=== PATIENT | male | born 1945 | race Caucasian/White ===

== ENCOUNTER → 2022-06-11 | Outpatient (CLI) | payer OTHER ==
[~2022-06-11] MED LIST: CLOT15CR23 TP; HYD25 PO; HYDR28CR51 TP; LIDOCAINE HCL 4% LTA SOL 4 ML VIAL ONE
== END | disposition home or self-care (01) ==
LOC: WHH 08:32
PROVIDERS: ATTEND Family Medicine
DX: I89.0 Lymphedema, not elsewhere classified (principal); L97.811 Non-pressure chronic ulcer of other part of right lower leg limited to breakdown of skin; L97.821 Non-pressure chronic ulcer of other part of left lower leg limited to breakdown of skin; I87.2 Venous insufficiency (chronic) (peripheral); I11.0 Hypertensive heart disease with heart failure; I50.20 Unspecified systolic (congestive) heart failure; E66.9 Obesity, unspecified; M19.90 Unspecified osteoarthritis, unspecified site; F17.290 Nicotine dependence, other tobacco product, uncomplicated; F17.200 Nicotine dependence, unspecified, uncomplicated; Z68.41 Body mass index [BMI] 40.0-44.9, adult; Z79.899 Other long term (current) drug therapy
CPT/HCPCS: G0463; A4450; A6456

== ENCOUNTER 2022-06-17 08:17 | Emergency (ER) | payer OTHER ==
[~2022-06-17] VITALS: Ht 180.3 cm; Wt 145.1 kg
[2022-06-17 09:01] LABS: BASOPHILS % (AUTO) 0.6 % (0.0-5.0); EOSINOPHILS % (AUTO) 7.3 % (0.0-8.0); HEMATOCRIT 37.1 % (42-54); LYMPHOCYTES % (AUTO) 18.4 % (21.0-51.0); MEAN CORPUSCULAR HGB CONC 32.1 g/dL (32.0-36.0); MEAN CORPUSCULAR VOLUME 90.5 fL (79-99); MONOCYTES % (AUTO) 8.9 % (3.0-13.0); NEUTROPHILS % (AUTO) 63.7 % (40.0-77.0); PLATELET COUNT (AUTO) 263 K/uL (130-400); RED CELL DISTRIBUTION WIDTH 15.7 % (11.0-15.5)
[2022-06-17 09:09] LABS: CREATININE 1.5 mg/dL (0.5-1.5); POTASSIUM 3.9 mmol/L (3.5-5.1)
[2022-06-17 09:13] LABS: ALBUMIN 2.5 g/dL (3.5-5.0); TOTAL PROTEIN, SERUM 7.2 g/dL (6.0-8.3)
[2022-06-17] MEDS ORDERED: HYDR28CR51 TP (09:40)
[2022-06-17] MEDS ORDERED: HYD25 PO (09:40)
[2022-06-17] MEDS ORDERED: CLOT15CR23 TP (09:40)
[2022-06-17 09:58] VITALS: BP 110/68
== END 2022-06-17 10:00 | disposition home or self-care (01) ==
LOC: EDH 08:17
DX: B37.2 Candidiasis of skin and nail (principal); L20.9 Atopic dermatitis, unspecified; J44.9 Chronic obstructive pulmonary disease, unspecified; Z88.8 Allergy status to other drugs, medicaments and biological substances; Z88.6 Allergy status to analgesic agent; Z98.890 Other specified postprocedural states
CPT/HCPCS: 36415; 80053; 85025

== ENCOUNTER → 2022-06-18 | Outpatient (CLI) | payer OTHER ==
[~2022-06-18] MED LIST changes: -LIDOCAINE HCL 4% LTA SOL 4 ML VIAL ONE
== END | disposition home or self-care (01) ==
LOC: WHH 10:14
PROVIDERS: ATTEND Family Medicine
DX: I89.0 Lymphedema, not elsewhere classified (principal); L97.812 Non-pressure chronic ulcer of other part of right lower leg with fat layer exposed; L97.822 Non-pressure chronic ulcer of other part of left lower leg with fat layer exposed; I11.0 Hypertensive heart disease with heart failure; I50.20 Unspecified systolic (congestive) heart failure; I87.2 Venous insufficiency (chronic) (peripheral); E66.9 Obesity, unspecified; M19.90 Unspecified osteoarthritis, unspecified site; F17.200 Nicotine dependence, unspecified, uncomplicated; Z79.899 Other long term (current) drug therapy
CPT/HCPCS: 29580; G0463; A6456

== ENCOUNTER → 2022-10-14 | Outpatient (CLI) | payer OTHER | END | disposition home or self-care (01) | LOC: WHH 11:16 | PROVIDERS: ATTEND Family Medicine | DX: I89.0 Lymphedema, not elsewhere classified (principal); L97.812 Non-pressure chronic ulcer of other part of right lower leg with fat layer exposed; L97.822 Non-pressure chronic ulcer of other part of left lower leg with fat layer exposed; I11.0 Hypertensive heart disease with heart failure; I50.20 Unspecified systolic (congestive) heart failure; I87.2 Venous insufficiency (chronic) (peripheral); J44.9 Chronic obstructive pulmonary disease, unspecified; E66.9 Obesity, unspecified; M19.90 Unspecified osteoarthritis, unspecified site; F17.200 Nicotine dependence, unspecified, uncomplicated; Z68.41 Body mass index [BMI] 40.0-44.9, adult; Z79.899 Other long term (current) drug therapy | CPT/HCPCS: 29580; A6456 ==

== ENCOUNTER → 2022-11-11 | Outpatient (CLI) | payer OTHER ==
[~2022-11-11] MED LIST changes: +FURO80TA3 PO; +LIDOCAINE HCL 4% LTA SOL 4 ML VIAL ONE; +MIRT-93 PO; +MULT-1367 PO; +POTA-79 PO; +SIMV40TA59 PO; +SPIR25TA6 PO; +TAMS-1 PO; +VENL50TA43 PO
== END | disposition home or self-care (01) ==
LOC: WHH 10:40
PROVIDERS: ATTEND Family Medicine
DX: I89.0 Lymphedema, not elsewhere classified (principal); L97.812 Non-pressure chronic ulcer of other part of right lower leg with fat layer exposed; L97.822 Non-pressure chronic ulcer of other part of left lower leg with fat layer exposed; I11.0 Hypertensive heart disease with heart failure; I50.20 Unspecified systolic (congestive) heart failure; I87.2 Venous insufficiency (chronic) (peripheral); J44.9 Chronic obstructive pulmonary disease, unspecified; E66.9 Obesity, unspecified; M19.90 Unspecified osteoarthritis, unspecified site; F17.200 Nicotine dependence, unspecified, uncomplicated; Z68.41 Body mass index [BMI] 40.0-44.9, adult; Z79.899 Other long term (current) drug therapy
CPT/HCPCS: G0463; A6197

== ENCOUNTER 2022-12-25 21:29 | Observation (INO) | payer OTHER ==
[~2022-12-25] VITALS: Ht 180.3 cm; Wt 1360.8 kg
[~2022-12-25 21:29] MED LIST changes: -LIDOCAINE HCL 4% LTA SOL 4 ML VIAL ONE; +POTA-364 PO; -POTA-79 PO
[2022-12-25 22:57] LABS: BASOPHILS % (AUTO) 0.4 % (0.0-5.0); EOSINOPHILS % (AUTO) 1.6 % (0.0-8.0); HEMATOCRIT 36.1 % (42-54); LYMPHOCYTES % (AUTO) 16.6 % (21.0-51.0); MEAN CORPUSCULAR HEMOGLOBIN 28.9 pg (27.0-33.0); MEAN CORPUSCULAR HGB CONC 32.7 g/dL (32.0-36.0); MEAN CORPUSCULAR VOLUME 88.5 fL (79-99); NEUTROPHILS % (AUTO) 70.5 % (40.0-77.0); PLATELET COUNT (AUTO) 330 K/uL (130-400); RED BLOOD CELL COUNT(AUTO) 4.08 MIL/uL (4.50-6.20); RED CELL DISTRIBUTION WIDTH 16.1 % (11.0-15.5); WHITE BLOOD COUNT (AUTO) 7.9 K/uL (4.8-10.8)
[2022-12-25] MEDS ORDERED: ACETAMINOPHEN 500 MG TABLET PO ONE (23:00)
[2022-12-25 23:13] LABS: CREATININE 1.8 mg/dL (0.5-1.5)
[2022-12-25 23:18] LABS: ALBUMIN 2.3 g/dL (3.5-5.0); TOTAL PROTEIN, SERUM 6.7 g/dL (6.0-8.3)
[2022-12-26] MEDS ORDERED: CEFEPIME HCL 2 GM VIAL IVPB SCH (00:30)
[2022-12-26] MEDS ORDERED: MORPHINE 4 MG SYG IV PRN (03:00)
[2022-12-26] MEDS ORDERED: LINEZOLID 600 MG/ISO-OSM 300 ML IV SCH (03:00)
[2022-12-26] MEDS ORDERED: MORPHINE 2 MG SYG IV PRN (03:00)
[2022-12-26] MEDS ORDERED: ONDANSETRON 4MG INJ IV PRN (03:00)
[2022-12-26] MEDS ORDERED: ACETAMINOPHEN 325 MG TAB PO PRN ×2 (03:00)
[2022-12-26] MEDS ORDERED: PHARMACY COMMUNICATION MISC SCH ×2 (03:30)
[2022-12-26 04:27] LABS: APPEARANCE,URINE CLEAR (CLEAR); BILIRUBIN,URINE NEGATIVE (NEGATIVE); COLOR,URINE LIGHT-YELLOW (YELLOW); GLUCOSE, URINE (UA) NEGATIVE (NEGATIVE); KETONES,URINE NEGATIVE (NEGATIVE); LEUKOCYTE ESTERASE ,URINE NEGATIVE Leu/uL (NEGATIVE); NITRATE,URINE NEGATIVE (NEGATIVE); OCCULT BLOOD,URINE NEGATIVE (NEGATIVE); PROTEIN,URINE NEGATIVE (NEGATIVE); UROBILINOGEN,URINE 0.2 mg/dL (0.2-1.0)
[2022-12-26] MEDS ORDERED: BUDESONIDE 0.5 MG/2 ML INH IH SCH (06:00)
[2022-12-26] MEDS ORDERED: MEROPENEM 500 MG VIAL IVPB SCH (06:16)
[2022-12-26 07:07] LABS: BASOPHILS % (AUTO) 0.5 % (0.0-5.0); EOSINOPHILS % (AUTO) 2.3 % (0.0-8.0); HEMATOCRIT 34.4 % (42-54); LYMPHOCYTES % (AUTO) 14.1 % (21.0-51.0); MEAN CORPUSCULAR HEMOGLOBIN 28.8 pg (27.0-33.0); MEAN CORPUSCULAR HGB CONC 32.3 g/dL (32.0-36.0); MEAN CORPUSCULAR VOLUME 89.4 fL (79-99); MONOCYTES % (AUTO) 12.1 % (3.0-13.0); NEUTROPHILS % (AUTO) 70.1 % (40.0-77.0); PLATELET COUNT (AUTO) 292 K/uL (130-400); RED BLOOD CELL COUNT(AUTO) 3.85 MIL/uL (4.50-6.20); RED CELL DISTRIBUTION WIDTH 16.1 % (11.0-15.5); WHITE BLOOD COUNT (AUTO) 6.4 K/uL (4.8-10.8)
[2022-12-26 07:18] LABS: CREATININE 1.6 mg/dL (0.5-1.5); MAGNESIUM 2.3 mg/dL (1.80-2.40); PHOSPHORUS 4.1 mg/dL (2.5-4.9); POTASSIUM 4.2 mmol/L (3.5-5.1)
[2022-12-26] MEDS: IPRATROPIUM/ALBUTEROL SULFATE 3 ML SOLUTION IH SCH ×2 (07:19→11:36)
[2022-12-26] MEDS ORDERED: FUROSEMIDE 40 MG TABLET PO SCH (09:00)
[2022-12-26] MEDS ORDERED: FAMOTIDINE 20MG TAB PO SCH (09:00)
[2022-12-26] MEDS ORDERED: HEPARIN 5,000 UNIT VIAL SQ SCH (09:00)
[2022-12-26 13:57] VITALS: BP 112/67
== END 2022-12-26 15:14 ==
LOC: EDH 21:29 → EDHIP 12-26 01:00 → INTOOBSV 12-26 01:00
PROVIDERS: ADMIT Internal Medicine; ATTEND Internal Medicine
DX: L03.115 Cellulitis of right lower limb (principal); L03.116 Cellulitis of left lower limb; N17.9 Acute kidney failure, unspecified; I13.0 Hypertensive heart and chronic kidney disease with heart failure and stage 1 through stage 4 chronic kidney disease, or unspecified chronic kidney disease; I50.9 Heart failure, unspecified; N18.9 Chronic kidney disease, unspecified; J44.9 Chronic obstructive pulmonary disease, unspecified; L97.929 Non-pressure chronic ulcer of unspecified part of left lower leg with unspecified severity; L97.919 Non-pressure chronic ulcer of unspecified part of right lower leg with unspecified severity; G25.81 Restless legs syndrome; G47.33 Obstructive sleep apnea (adult) (pediatric); E66.01 Morbid (severe) obesity due to excess calories; E78.00 Pure hypercholesterolemia, unspecified; F17.200 Nicotine dependence, unspecified, uncomplicated; I25.10 Atherosclerotic heart disease of native coronary artery without angina pectoris; I89.0 Lymphedema, not elsewhere classified; Z51.5 Encounter for palliative care; Z86.73 Personal history of transient ischemic attack (TIA), and cerebral infarction without residual deficits; Z88.1 Allergy status to other antibiotic agents; Z91.199 Patient's noncompliance with other medical treatment and regimen due to unspecified reason; Z95.5 Presence of coronary angioplasty implant and graft; Z79.899 Other long term (current) drug therapy; Z98.890 Other specified postprocedural states; Z68.41 Body mass index [BMI] 40.0-44.9, adult
CPT/HCPCS: 80053; 85025 ×2; 87040 ×2; 83605; 36415 ×2; 93005; 84145; 96372; 96365; 96366; 96367; 99284; 83735; 84100; 80048; 81003; 94640 ×2; 94664; G0378 ×3; J1644; J2020; J0692; J2185

== ENCOUNTER 2023-05-06 04:48 | Emergency (ER) | payer OTHER ==
[~2023-05-06] VITALS: Ht 180.3 cm; Wt 145.1 kg
[~2023-05-06 04:48] MED LIST changes: -CLOT15CR23 TP; -FURO80TA3 PO; -HYD25 PO; -HYDR28CR51 TP; +ROPI4TAB41 PO
[2023-05-06 04:50] VITALS: BP 156/78; PULSE 88; RESP 20
== END 2023-05-06 12:14 | disposition home or self-care (01) ==
LOC: EDH 04:48
DX: L03.115 Cellulitis of right lower limb (principal); L03.116 Cellulitis of left lower limb; I11.0 Hypertensive heart disease with heart failure; I50.9 Heart failure, unspecified; G25.81 Restless legs syndrome; Z79.899 Other long term (current) drug therapy; Z98.890 Other specified postprocedural states; Z88.0 Allergy status to penicillin; Z88.1 Allergy status to other antibiotic agents; Z88.6 Allergy status to analgesic agent; Z88.8 Allergy status to other drugs, medicaments and biological substances
CPT/HCPCS: 93971

== ENCOUNTER 2024-07-20 17:47 | Inpatient (IN) | payer OTHER ==
[~2024-07-20] VITALS: Ht 180.3 cm; Wt 158.8 kg
[~2024-07-20 17:47] MED LIST changes: +ATOR40TA69 PO; +METO5TAB7 PO; +ONDA-104 PO; +PRAZ1CAP5 PO; +SERT-438 PO; +VENL50TA29 PO; -VENL50TA43 PO
[2024-07-20] MEDS: IpraTROPium/alBUTERol SULFATE 3 ML SOLUTION IH ONE (18:31)
[2024-07-20 18:35] LABS: ABG BASE EXCESS 2.1 mmol/L (-2.0-3.0); ABG HCO3 29.5 mmol/L (21.0-28.0); ABG PCO2 60 mmHg (35-48); ABG PH 7.308 (7.350-7.450); CARBON MONOXIDE 0.8 % (0.5-1.5); DEVICE COMMENT RR RN; HHb 6.9; PO2, ARTERIAL BG 72.5 mmHg (83.0-108.0); VENT MODE, BG 3LNC (ROOM AIR)
[2024-07-20 18:39] VITALS: PULSE 81; RESP 18
[2024-07-20 18:51] LABS: HEMATOCRIT 37.8 % (42-54); MEAN CORPUSCULAR HEMOGLOBIN 26.5 pg (27.0-33.0); MEAN CORPUSCULAR HGB CONC 29.6 g/dL (32.0-36.0); MEAN CORPUSCULAR VOLUME 89.6 fL (79-99); PLATELET COUNT (AUTO) 314 K/uL (130-400); RED BLOOD CELL COUNT(AUTO) 4.22 MIL/uL (4.50-6.20); RED CELL DISTRIBUTION WIDTH 16.9 % (11.0-15.5); WHITE BLOOD COUNT (AUTO) 5.1 K/uL (4.8-10.8)
[2024-07-20 19:07] LABS: CREATININE 1.3 mg/dL (0.5-1.3); POTASSIUM 3.8 mmol/L (3.5-5.1)
--- NOTE | 2024-07-20 19:07 | HMCIMG ---
CHEST 1VW HISTORY: Shortness of breath COMPARISON: 12/31/2023 FINDINGS: A frontal projection of the chest was obtained. Mild bilateral pulmonary infiltrates are seen may be related to mild pulmonary vascular congestion with possible superimposed pneumonitis. The heart is borderline enlarged. Degenerative changes are seen. No evidence of aortic calcification is seen. IMPRESSION: 1. Mild bilateral pulmonary infiltrates are seen may be related to mild pulmonary vascular congestion with possible superimposed pneumonitis.
[2024-07-20 19:16] LABS: B-TYPE NATRIURETIC PEPTIDE 100 pg/mL (0-100); MAGNESIUM 1.6 mg/dL (1.80-2.40)
--- NOTE | 2024-07-20 20:37 | ERN ---
General Chief Complaint: Shortness of Breath Stated Complaint: SOB Time Seen by MD: 17:51 Time Seen by Midlevel: 17:51 Source: patient, EMS History of Present Illness Initial Comments Patient is an 79-year-old male being brought in via EMS for evaluation of shortness of breath. According to EMS patient was being sent from the [place] for a COPD exacerbation. On arrival patient does report cough congestion and some mild difficulty breathing. He does admit to being O2 dependent and is usually on 3 L of oxygen. Allergies: Coded Allergies: piperacillin (Verified Allergy, Severe, ANAPHYLAXIS, 11/19/22) 11/17/2022 tazobactam (Verified Allergy, Severe, ANAPHYLAXIS, 11/19/22) 11/17/2022 vancomycin (Verified Allergy, Severe, anaphylaxis, 11/19/22) 11/17/2022. gabapentin (Unverified Adverse Reaction, Unknown, 06/17/22) GI UPSET. naproxen (Unverified Adverse Reaction, Unknown, 06/17/22) GI UPSET Home Meds Reported Medications Ondansetron HCl (Ondansetron HCl) 4 Mg Tablet, 4 MG PO Q6HPRN, TAB 12/31/23 Metolazone (Metolazone) 5 Mg Tablet, 5 MG PO Q2D, TAB 12/31/23 Prazosin HCl (Prazosin HCl) 1 Mg Capsule, 1 MG PO HS, CAP 12/31/23 Atorvastatin Calcium (LIPITOR) 40 Mg Tablet, 40 MG PO HS, TAB 12/31/23 Sertraline HCl (Sertraline HCl) 25 Mg Tablet, 25 MG PO DAILY, TAB 12/31/23 Ropinirole HCl (Ropinirole HCl) 4 Mg Tablet, 4 MG PO QIDP PRN for LEG PAIN, TAB 03/01/23 Multivitamin (Multivitamin) 1 Each Tablet, 1 EACH PO DAILY, TAB 11/18/22 Tamsulosin HCl (Flomax) 0.4 Mg Cap.er.24h, 0.4 MG PO HS, CAPSULE.DR 11/18/22 Spironolactone (Spironolactone) 25 Mg Tablet, 25 MG PO DAILY, TAB 11/18/22 Venlafaxine HCl (Venlafaxine HCl) 50 Mg Tablet, 150 MG PO DAILY, TAB 11/18/22 Potassium Chloride (Potassium Chloride) 20 Meq Tablet.er, 40 MEQ PO DAILY, TAB 11/18/22 Simvastatin (ZOCOR) 40 Mg Tablet, 40 MG PO HS, TAB 11/18/22 Mirtazapine (Mirtazapine) 30 Mg Tablet, 30 MG PO HS, TAB 11/18/22 Past Medical History Past Medical History: CAD, COPD, Hypertension Medical History Other: SLEEP APNEA, RLS, CHRONIC KNEE AND BACK PAIN, AAA, AZALIA LULITIS LOWER LEGS Past Surgical History: Other Surgical History Other: BACK SX Family History Family History: CAD, DM, HTN Social History Social History: Negative, Lives with family ROS Dictation CONSTITUTIONAL: Negative except for HPI HEAD/FACE: Negative except for HPI EENT: Negative except for HPI RESPIRATORY: Negative except for HPI GASTROINTESTINAL/ABDOMINAL: Negative except for HPI GENITOURINARY: Negative except for HPI MUSCULOSKELETAL: Negative except for HPI INTEGUMENTARY: Negative except for HPI NEUROLOGICAL/PSYCH: Negative except for HPI HEMATOLOGIC/LYMPHATIC: Negative except for HPI All Systems Negative, Except as noted above. 13 point review of systems assessed and all negative except for above. Physical Exam Physical Exam Dictation Vital Signs reviewed General Appearance: Alert, oriented x 3, no acute distress, ill-appearing, morbidly obese Head and Face: non-traumatic. Eyes: PERRL, pink conjunctivas, eyelid no trauma, anterior chamber with arcus senilis. Ears: Pinnas intact and no signs of trauma or erythema ear canals clear and no discharge TM no erythema Nose: No discharge, no bleeding. Oropharynx: Mouth normal, tongue pink, pharynx clear,no erythema, tonsils no exudates, no abscesses noted, mucous membrane moist Neck: Supple, non-tender, no thyromegaly, no masses, no JVD, no bruits Breast:Deferred Chest:No tenderness, no crepitus, no paradoxical movement, no retractions Lungs: Diffuse wheezing to bilateral lung patterson, productive cough during my examination Heart: Regular rate, regular rhythm, no murmur, no gallops Vascular: Extensive amount of swelling to bilateral lower extremities Abdomen: Soft, positive bowel sounds, nondistended, no guarding, nontender, no rebound, no masses no hepatomegaly, no splenomegaly, no Mcintyre's sign, no hernias. Rectal: Deferred Genital: Deferred Neurological: Normal speech, motor function intact, sensory function intact Musculoskeletal: Neck nontender, full range of motion, back nontender, full range of motion, Extremities: nontender, full range of motion Skin: Stasis dermatitis to bilateral lower extremities, there was also erythema to bilateral lower extremities with multiple superficial skin tear/abrasions Lymphatic: Deferred Results Laboratory and Microbiology Lab and Micro Result Laboratory Tests Test 07/20/24 18:17 07/20/24 18:34 White Blood Count 5.1 K/uL (4.8-10.8) Red Blood Count 4.22 MIL/uL (4.50-6.20) L Hemoglobin 11.2 g/dL (14.0-18.0) L Hematocrit 37.8 % (42-54) L Mean Corpuscular Volume 89.6 fL (79-99) Mean Corpuscular Hemoglobin 26.5 pg (27.0-33.0) L Mean Corpuscular Hemoglobin Concent 29.6 g/dL (32.0-36.0) L Red Cell Distribution Width 16.9 % (11.0-15.5) H Platelet Count 314 K/uL (130-400) Mean Platelet Volume 9.1 fL (7.5-10.5) Nucleated Red Blood Cells 0.0 % (0.0-0.19) Red Blood Cell Morphology See comments Sodium Level 139 mmol/L (136-145) Potassium Level 3.8 mmol/L (3.5-5.1) Chloride Level 102 mmol/L (101-111) Carbon Dioxide Level 35 mmol/L (21-32) H Blood Urea Nitrogen 17 mg/dL (7-18) Creatinine 1.3 mg/dL (0.5-1.3) Glomerular Filtration Rate Calc 56 mL/min (>90) Random Glucose 94 mg/dL (70-105) Lactic Acid Level 2.0 mmol/L (0.8-2.5) Total Calcium 8.4 mg/dL (8.5-10.1) L Magnesium Level 1.60 mg/dL (1.80-2.40) L Troponin I High Sensitivity 7 ng/L (4-75) B-Type Natriuretic Peptide 100 pg/mL (0-100) Procalcitonin < 0.05 ng/mL (0.05-0.5) L Blood Gas Specimen Type Arterial Arterial Blood pH 7.308 (7.350-7.450) Arterial Blood Partial Pressure CO2 60 mmHg (35-48) *H Arterial Blood Partial Pressure O2 72.5 mmHg (83.0-108.0) L Arterial Blood HCO3 29.5 mmol/L (21.0-28.0) H Arterial Blood Oxygen Saturation 93.0 % (94.0-98.0) L Arterial Blood Base Excess 2.1 mmol/L (-2.0-3.0) Hemoglobin (Blood Gas) 11.3 g/dL (13.5-17.5) L Sodium (Blood Gas) 139 MMOL/L (136-145) Bedside Potassium (Blood Gas) 3.9 MMOL/L (3.4-4.5) Bedside Chloride (Blood Gas) 103 MMOL/L (98-107) Bedside Glucose (Blood Gas) 103 MG/DL (65-95) H Bedside Ionized Calcium (Blood Gas) 1.13 MMOL/L (1.15-1.33) L Bedside Lactic Acid (Blood Gas) 1.14 MMOL/L (0.36-0.75) H Blood Gas Temperature 37.0 CELSIUS (35.5-37.0) Blood Gas Flow-by 3.00 L/min (0.00-15.00) Blood Gas Vent Mode 3LNC (ROOM AIR) FiO2 32.0 % Blood Gas Specimen Comment RR RN Labs Reviewed?: Yes MDM MDM: Differential diagnosis: COPD exacerbation, pneumonia, cellulitis Rationale: Tests considered and ordered secondary to shared decision making include: Previous outside records reviewed: Old ER visits. Risk of complication and/or morbidity or mortality of patient management: None Medications-Per medication reconciliation Need for hospitalization: Patient does meet criteria for hospitalization. Need for emergency major/minor surgery: No There are no social concerns with this patient. Prescription drug management Prescriptions will include symptomatic care Patient's prior external medical records from other ER visits were reviewed by pawel ma as indicated. Prior testing and results from previous visits were reviewed. Prior tests were taken into account with medical decision making and resource utilization, independent historian/historians were used to obtain complete medical history. I independently interpreted the test that were performed, results were reviewed by me and considered findings on radiology if ordered. Medical management and examination interpretation discussions were had by me with other qualified healthcare professionals as indicated for the patient's care. ED Course Orders Procedure Category Date Status Time Cbc Without LAB 07/20/24 Complete Differential 18:02 Basic Metabolic Panel LAB 07/20/24 Complete 18:02 B-Type Natriuretic LAB 07/20/24 Complete Peptide 18:02 Troponin I High LAB 07/20/24 Complete Sensitivity 18:02 Lactic Acid LAB 07/20/24 Complete 18:02 Blood Cult FERNANDO 07/20/24 In Process 18:02 12 Lead Ekg Tracing- EKG 07/20/24 Logged Technical 18:02 Chest 1vw RAD 07/20/24 Resulted 18:02 Arterial Blood Gas + RT 07/20/24 Transmitted 18:04 Ipratropium/Albuterol PHA 07/20/24 Complete Neb (Duoneb) 18:30 Procalcitonin LAB 07/20/24 Complete 18:08 Urinalysis Profile LAB 07/20/24 Complete 18:08 Magnesium LAB 07/20/24 Complete 18:02 Arterial Blood Gas LAB 07/20/24 Complete Arterial + 18:34 Levofloxacin 500 PHA 07/20/24 Complete Mg/D5w 100 Ml 20:30 Methylprednisolone PHA 07/20/24 Complete Succ 125mg (Solu-Medr 20:30 Covid Rna Naat LAB 07/20/24 Complete 20:29 Influenza Type A & B, LAB 07/20/24 Complete Rapid 20:29 Current Medications Medications (Trade) Dose Ordered Sig/Viola Route PRN Reason Start Time Stop Time Status Last Admin Dose Admin Albuterol (DUOneb) 1 UDVIAL ONCE ONCE IH 07/20/24 18:30 07/20/24 18:31 DC 07/20/24 18:31 Levofloxacin/ Dextrose 100 ml @ 100 mls/hr ONCE ONCE IV 07/20/24 20:30 07/20/24 21:29 DC 07/20/24 21:03 Methylprednisolone Sodium Succinate (Solu-medROL 125MG) 125 mg ONCE ONCE IVP 07/20/24 20:30 07/20/24 20:34 DC 07/20/24 21:03 Vital Signs Date Time Temp Pulse Resp B/P (MAP) Pulse Ox O2 Delivery O2 Flow Rate FiO2 07/20/24 20:26 85 16 126/48 98 Nasal Cannula* 4 36 07/20/24 18:39 81 18 07/20/24 18:32 80 14 108/50 98 Nasal Cannula* 2 28 07/20/24 17:49 98.4 80 20 124/68 93 Nasal Cannula 2.0 [facility] [address] [place] [address] IMAGING REPORT Signed PATIENT: EMILY KURTZ MR#: [id number] : 1945 SEX: M AGE: 79 LOCATION: [facility] ORDER 02 STATUS: REG ER REPORT#: [id number] SERVICE 01 REASON: SOB ORDERING PHYSICIAN: STEPHEN SERNA PROCEDURE: CXR1VW - CHEST 1VW CHEST 1VW HISTORY: Shortness of breath COMPARISON: 12/31/2023 FINDINGS: A frontal projection of the chest was obtained. Mild bilateral pulmonary infiltrates are seen may be related to mild pulmonary vascular congestion with possible superimposed pneumonitis. The heart is borderline enlarged. Degenerative changes are seen. No evidence of aortic calcification is seen. IMPRESSION: 1. Mild bilateral pulmonary infiltrates are seen may be related to mild pulmonary vascular congestion with possible superimposed pneumonitis. DICTATED BY: KATHARINA PRINCE MD DATE: 07/20/241904 ELECTRONICALLY SIGNED BY: KATHARINA PRINCE MD DATE: 07/20/241906 DX & DISP Disposition: Inpatient Decision to Admit Date: Jul 20, 2024 Decision to Admit Time: 20:37 Departure Impression: Primary Impression: Pneumonia Additional Impressions: Stasis dermatitis of both legs, COPD exacerbation Condition: Stable Referrals: PIEDAD FUENTES MD (PCP) I have reviewed the case, and I agree with, Diagnosis and Plan I performed the substantive portion of the visit. I have reviewed and personally made and approve the management plan that is documented in the note by myself or the DARRYN. I acknowledge for responsibility for the patient's management plan. STEPHEN SERNA Jul 20, 2024 20:36
[2024-07-20] MEDS: Solu-medROL 125MG VIAL IVP ONE (21:03)
[2024-07-20] MEDS: levoFLOXacin 500 MG/D5W 100 ML 100 ML IV ONE (21:03)
[2024-07-20 21:26] LABS: APPEARANCE,URINE CLEAR (CLEAR); BILIRUBIN,URINE NEGATIVE (NEGATIVE); COLOR,URINE YELLOW (YELLOW); GLUCOSE, URINE (UA) NEGATIVE (NEGATIVE); KETONES,URINE 5 mg/dL (NEGATIVE); LEUKOCYTE ESTERASE ,URINE 25 Leu/uL (NEGATIVE); NITRATE,URINE NEGATIVE (NEGATIVE); OCCULT BLOOD,URINE NEGATIVE (NEGATIVE); PROTEIN,URINE 10 mg/dL (NEGATIVE); UROBILINOGEN,URINE 0.2 mg/dL (0.2-1.0)
[2024-07-20 21:29] LABS: ADD UA MICROSCOPIC YES
[2024-07-20 21:33] LABS: BACTERIA,URINE RARE /HPF (None Seen); MUCUS,URINE RARE LPF (None Seen); RBC,URINE 0-1 /HPF (0-1); SQUAMOUS EPITHELIAL CELL,UR RARE /HPF (0-2)
--- NOTE | 2024-07-20 21:50 | NUR ---
Report Report received from Tate DEVINE at this time. States nurse practitioner in room currently assessing patient. Will be transferred to room 302 after assessment done. Patient is currently on 3L/NC saturating 94%. Patient does not ambulate but is awake, alert and oriented x4.
--- NOTE | 2024-07-20 21:55 | NUR ---
REPORT GIVEN TO AVIS DEVINE. PT GOING TO ROOM 302
[2024-07-20 22:25] LABS: SARS-CoV-2, RNA, NAAT NEGATIVE SARS CoV-2 (NEGATIVE)
[2024-07-20 22:30] VITALS: O2SAT 91
--- NOTE | 2024-07-20 22:30 | NUR ---
Arrival on floor Patient arrived on floor. Patient was able to transfer to bed with x1 assistance. Noted dressing to BLE with purulent drainage. Dressings will need to be changed. Noted swelling to mid abdomen when laying flat. Patient with history of abdominal aortic aneurysm. Patient verbalized that he has a wound to his buttock as well. Patient was changed at this time. Patient currently on an adult brief from home. Brief changed at this time. Gown applied to patient along with satellite project site monitor. 20G IV noted to right forearm near wrist. Currently on ordered antibiotic. Bipap ordered per admitting ROPEWALK ROPE MAKER. Respiratory at bedside. Patient voiced he did not need bipap. I advised him to tolerate as much as possible due to abnormal ABGs. Patient verbalized understanding. Will continue to monitor.
[2024-07-20 22:31] LABS: INFLUENZA TYPE A Negative For Type A (NEGATIVE); INFLUENZA TYPE B Negative For Type B (NEGATIVE)
[2024-07-20] MEDS: acetylCYSTeine 20% 200MG/ML 4ML VIAL IH SCH (22:55)
[2024-07-20] MEDS: IpraTROPium 0.5 MG/2.5 ML INH IH SCH (22:55)
[2024-07-20] MEDS: ALBUTEROL 0.083% 2.5 MG/3 ML INH IH SCH (22:55)
[2024-07-20 22:57] VITALS: PULSE 83; RESP 20
[2024-07-20 22:59] VITALS: PULSE 83; RESP 20; O2SAT 94
--- NOTE | 2024-07-20 23:10 | HP ---
[facility] HISTORY AND PHYSICAL Date of Service: Jul 20, 2024 Time of Service: 23:10 PIEDAD FUENTES MD (PCP) Supervising/attending physicians: Dr. Mary Ellen Cruz and Dr. Mackay HISTORY OF PRESENT ILLNESS: Mr. Garcia is an 79-year-old male with a history of hypertension, CAD, obstructive sleep apnea, COPD, O2 dependent usually on 3 L O2, chronic knee and back pain, AAA, and chronic bilateral lower extremity venous ulcers, chronic lower extremity cellulitis who presented to [facility] ED via EMS for evaluation of shortness of breath. According to EMS [facility]. The patient reported cough, congestion, and some mild difficulty breathing. Chest x-ray: Mild bilateral pulmonary infiltrates are seen may be related to mild pulmonary vascular congestion with possible superimposed pneumonitis. ABGs : PH 7.308, pCO2 60, PO2 72.5, bicarbonate 29.5, O2 sats 93. ED provider request patient be admitted to the hospital with a diagnosis of pneumonia, status dermatitis to bilateral lower extremities, and COPD exacerbation. I went to assess patient at bedside in ED 15. The patient was tachypneic, wheezing, and lungs sounded wet. Patient had a very productive cough, and was spitting phlegm into a napkin while the I assessed him. I informed the patient of labs, including ABGs, diagnostics, plan of care. The patient verbalized understanding and since agreement with the plan. Plan and assessment are listed below. REVIEW OF SYSTEMS 12-point ROS reviewed with patient. All pertinent positives mentioned above. Otherwise negative, noncontributory, or non-pertinent. PAST MEDICAL HISTORY: Morbid obesity COPD Obstructive sleep apnea Restless leg syndrome Chronic bilateral lower extremity venous ulcers Chronic lower extremity cellulitis PAST SURGICAL HISTORY: Back surgery x2 cardiac stents PAST SOCIAL HISTORY: Patient denies illicit drug use but has history of occasional smoking and alcohol drinking FAMILY HISTORY: CAD, DM, HTN Coded Allergies: piperacillin (Verified Allergy, Severe, ANAPHYLAXIS, 11/19/22) 11/17/2022 tazobactam (Verified Allergy, Severe, ANAPHYLAXIS, 11/19/22) 11/17/2022 vancomycin (Verified Allergy, Severe, anaphylaxis, 11/19/22) 11/17/2022. gabapentin (Unverified Adverse Reaction, Unknown, 06/17/22) GI UPSET. naproxen (Unverified Adverse Reaction, Unknown, 06/17/22) GI UPSET PHYSICAL EXAM GENERAL APPEARANCE: The patient is awake, alert, and oriented, in no acute cardiopulmonary distress. NEUROLOGICAL: Cranial nerves II-XII grossly intact. Motor is 5/5 in bilateral upper and lower extremities proximal to distal. No sensory deficits. HEENT: Face is symmetric. Pupils are equal and reactive. Extraocular movements are intact. NECK: Supple. No JVD. No thyromegaly. No submental, submandibular, pre- /postauricular, occipital or supraclavicular lymphadenopathy. CHEST: Normal chest expansion. No Telemetry. LUNGS: Tachypneic, wheezing, and lungs sounded wet. Patient had a very productive cough, and was spitting phlegm into a napkin while the I assessed him. CARDIOVASCULAR: Regular. S1 and S2 normal. No appreciable rubs, murmurs or gallops. ABDOMEN: Soft, nontender, and nondistended. There is no rebound, voluntary guarding, or rigidity. : Deferred. No Ramirez. EXTREMITIES: Non-edematous and not cyanotic. No clubbing. Good capillary refill. SKIN: No skin breakdown. Vital Sign (Last 24 Hours) 07/20/24 07/20/24 07/20/24 17:49 20:26 22:59 Temp 98.4 Pulse 83 Resp 20 B/P (MAP) 126/48 Pulse Ox 98 O2 Delivery N/Cannula Low lpm O2 Flow Rate 3.0 FiO2 32 LABS: Laboratory: Test 07/20/24 21:13 07/20/24 21:05 07/20/24 18:34 07/20/24 18:17 Range/Units Urine Color YELLOW YELLOW Urine Appearance CLEAR CLEAR Urine pH 5.0 5.0-8.0 Urine Specific [place] 1.024 1.001-1.031 Urine Protein 10 H NEGATIVE mg/dL Urine Glucose (UA) NEGATIVE NEGATIVE mg/dL Urine Ketones 5 H NEGATIVE mg/dL Urine Occult Blood NEGATIVE NEGATIVE Urine Nitrate NEGATIVE NEGATIVE Urine Bilirubin NEGATIVE NEGATIVE mg/dL Urine Urobilinogen 0.2 0.2-1.0 mg/dL Urine Leukocyte Esterase 25 H NEGATIVE Sultana/uL Urine RBC 0-1 0-1 /HPF Urine WBC 2-5 H 0-1 /HPF Urine Squamous Epithelial Cells RARE 0-2 /HPF Urine Bacteria RARE None Seen /HPF Influenza Type A Antigen Negative For Type A NEGATIVE Influenza Type B Antigen Negative For Type B NEGATIVE SARS-CoV-2, RNA, NAAT NEGATIVE SARS CoV-2 NEGATIVE Blood Gas Specimen Type Arterial Arterial Blood pH 7.308 L 7.350-7.450 Arterial Blood Partial Pressure CO2 60 *H 35-48 mmHg Arterial Blood Partial Pressure O2 72.5 L 83.0-108.0 mmHg Arterial Blood HCO3 29.5 H 21.0-28.0 mmol/L Arterial Blood Oxygen Saturation 93.0 L 94.0-98.0 % Arterial Blood Base Excess 2.1 -2.0-3.0 mmol/L Hemoglobin (Blood Gas) 11.3 L 13.5-17.5 g/dL Sodium (Blood Gas) 139 136-145 MMOL/L Bedside Potassium (Blood Gas) 3.9 3.4-4.5 MMOL/L Bedside Chloride (Blood Gas) 103 98-107 MMOL/L Bedside Glucose (Blood Gas) 103 H 65-95 MG/DL Bedside Ionized Calcium (Blood Gas) 1.13 L 1.15-1.33 MMOL/L Bedside Lactic Acid (Blood Gas) 1.14 H 0.36-0.75 MMOL/L Blood Gas Temperature 37.0 35.5-37.0 CELSIUS Blood Gas Flow-by 3.00 0.00-15.00 L/min Blood Gas Vent Mode 3LNC ROOM AIR FiO2 32.0 % Blood Gas Specimen Comment RR RN White Blood Count 5.1 4.8-10.8 K/uL Red Blood Count 4.22 L 4.50-6.20 MIL/uL Hemoglobin 11.2 L 14.0-18.0 g/dL Hematocrit 37.8 L 42-54 % Mean Corpuscular Volume 89.6 79-99 fL Mean Corpuscular Hemoglobin 26.5 L 27.0-33.0 pg Mean Corpuscular Hemoglobin Concent 29.6 L 32.0-36.0 g/dL Red Cell Distribution Width 16.9 H 11.0-15.5 % Platelet Count 314 130-400 K/uL Mean Platelet Volume 9.1 7.5-10.5 fL Nucleated Red Blood Cells 0.0 0.0-0.19 % Red Blood Cell Morphology See comments Sodium Level 139 136-145 mmol/L Potassium Level 3.8 3.5-5.1 mmol/L Chloride Level 102 101-111 mmol/L Carbon Dioxide Level 35 H 21-32 mmol/L Blood Urea Nitrogen 17 7-18 mg/dL Creatinine 1.3 0.5-1.3 mg/dL Glomerular Filtration Rate Calc 56 >90 mL/min Random Glucose 94 70-105 mg/dL Lactic Acid Level 2.0 0.8-2.5 mmol/L Total Calcium 8.4 L 8.5-10.1 mg/dL Magnesium Level 1.60 L 1.80-2.40 mg/dL Troponin I High Sensitivity 7 4-75 ng/L B-Type Natriuretic Peptide 100 0-100 pg/mL Procalcitonin < 0.05 L 0.05-0.5 ng/mL Current Medications Medications (Trade) Dose Ordered Sig/Viola Route PRN Reason Start Time Stop Time Status Last Admin Dose Admin Acetylcysteine (MUComyst 20% 4ML) 400 mg [id number] 07/20/24 22:10 08/19/24 22:09 07/20/24 22:55 400 MG Albuterol Sulfate (Proventil 0.083% 2.5mg/3ml) 2.5 mg [id number] 07/20/24 22:00 08/19/24 21:59 07/20/24 22:55 2.5 MG Ipratropium [place] (AtrovENT UD) 0.5 mg [id number] 07/20/24 22:00 08/19/24 21:59 07/20/24 22:55 0.5 MG DIAGNOSTICS / RADIOLOGY: [ ] ASSESSMENT: Acute hypoxemic hypercapnic respiratory failure, requiring BiPAP COPD exacerbation Acute complicated cystitis, POA Chronic bilateral lower extremity venous ulcers Acute on chronic lower extremity cellulitis Anemia of chronic disease Hypomagnesemia Hyperglycemia Obstructive sleep apnea Morbid obesity, BMI 41.1 Chronic problem list: HLP, BPH, anemia, chronic back and knee pain, PTSD, morbid obesity PLAN: -Admit to PCCU with continuous telemetry monitoring -Monitor respiratory status closely. -Start BiPAP, titrate oxygen prn to keep Spo2>/+=92%. -monitor ABGs and chest x-ray -Albuterol and Atrovent nebulizer treatments scheduled q.4 hours. -RT to provide IS and education on use. -Robitussin DM as needed cough. -Start montelukast 10 mg p.o. daily. -start Mucomyst 400 mg IH q.4 hours. -Solu-Medrol 60 mg IV q.6 hours -Continue antibiotic therapy: Levaquin IV (allergies to vancomycin and piperacillin,tazobactam) -Consult pulmonology for acute hypoxemic and hypercapnic respiratory failure, COPD exacerbation. -Consult infectious disease for acute on chronic/ recurrent lower extremity cellulitis. -p.r.n. medications for: Pain management, fever, nausea, vomiting, constipation, hypertension -Glucometer checks AC & HS needed with insulin regular sliding scale coverage as needed. -Blood pressure checks every 4 hours and as needed. -Reconcile home medications once available. -AM labs: monitor renal and liver function, monitor electrolytes and replace PRN -GI and DVT prophylaxis TOMY GUZMÁN INVESTIGATIVE ANALYST Jul 20, 2024 23:10
[2024-07-20 23:13] VITALS: PULSE 73; RESP 28; O2SAT 96
--- NOTE | 2024-07-20 23:22 | NUR ---
Pain Patient reported pain to BLE. No pain medication noted on file. Call placed to [facility] hospitalist group answering service. Pending call back from Valeria MARQUIS.
--- NOTE | 2024-07-20 23:26 | NUR ---
[employer] call back Received call back from Valeria MARQUIS. Advised of patient's complaint of pain to BLE. As per Juan Luis MARQUIS: Morphine 2mg IV push x1 dose now. Orders for Tylenol PRN have been placed. Orders noted and carried out.
[2024-07-20] MEDS ORDERED: hydrALAZine 20MG/ML VIAL IV PRN (23:30)
[2024-07-20] MEDS ORDERED: acetaMINOPHEN 650 MG SUPPOSITORY RC PRN (23:30)
[2024-07-20] MEDS ORDERED: ondanSETRON 4MG INJ IVP PRN (23:30)
[2024-07-20] MEDS ORDERED: LACTULOSE 20 GM/30 ML UDCUP PO PRN (23:30)
[2024-07-20] MEDS ORDERED: acetaMINOPHEN 325 MG TAB PO PRN (23:30)
[2024-07-20] MEDS: morPHINE 2 MG SYG IVP ONE (23:37)
--- NOTE | 2024-07-20 23:37 | NUR ---
Pain Patient reported pain score 10/10 to BLE. Morphine 2mg IV push given at this time to 20G to right forearm. Patient tolerating bipap.
[2024-07-21] VITALS (20 sets, daily range): BP systolic 104–143; BP diastolic 44–69; PULSE 76–93; RESP 18–28; TEMP 97.4–98.9; O2SAT 90–94
--- NOTE | 2024-07-21 01:23 | NUR ---
Pain Called [facility] hospitalist answering service. Patient continues with pain score 8/10 with no relief from Morphine 2mg IV. Valeria MARQUIS called back and was advised of pain unresolved. As per Valeria MARQUIS: Tramadol 50 mg tablet po q6h prn for severe pain. Orders noted and carried out.
[2024-07-21] MEDS: traMADol HCL 50 MG TABLET PO PRN (01:41)
--- NOTE | 2024-07-21 01:41 | NUR ---
Pain score 8/10 Patient given tramadol 50 mg tablet by mouth for pain score of 8/10 to BLE at this time.
--- NOTE | 2024-07-21 02:41 | NUR ---
Pain assessment Patient denied any pain at this time. Patient in bed, hob elevated. No signs or symptoms of discomfort noted at this time.
[2024-07-21] MEDS: Solu-medROL 125MG VIAL IVP SCH (04:41)
[2024-07-21 05:46] LABS: EOSINOPHILS # (AUTO) 0.01 K/uL (0.00-0.70); EOSINOPHILS % (AUTO) 0.2 % (0.0-8.0); HEMATOCRIT 36.1 % (42-54); IMMATURE GRANULOCYTE ABSOLUTE 0.01 K/uL (0-1); LYMPHOCYTES # (AUTO) 0.5 K/uL (1.0-4.8); LYMPHOCYTES % (AUTO) 9.8 % (21.0-51.0); MEAN CORPUSCULAR HEMOGLOBIN 26.9 pg (27.0-33.0); MEAN CORPUSCULAR HGB CONC 29.6 g/dL (32.0-36.0); MEAN CORPUSCULAR VOLUME 90.7 fL (79-99); MONOCYTES # (AUTO) 0.1 K/uL (0.1-1.0); MONOCYTES % (AUTO) 1.3 % (3.0-13.0); NEUTROPHILS # (AUTO) 4.1 K/uL (1.8-7.7); NEUTROPHILS % (AUTO) 88.5 % (40.0-77.0); PLATELET COUNT (AUTO) 271 K/uL (130-400); RED BLOOD CELL COUNT(AUTO) 3.98 MIL/uL (4.50-6.20); RED CELL DISTRIBUTION WIDTH 16.5 % (11.0-15.5); WHITE BLOOD COUNT (AUTO) 4.6 K/uL (4.8-10.8)
--- NOTE | 2024-07-21 06:09 | EKG ---
[facility] Test Date: 2024-07-20 Test Time: 18:10:20 Pat Name: EMILY KURTZ Department: [facility] Room: 302 1 Gender: M Brewing Director: [id number] : 1945 Requested By: STEPHEN SERNA Order Number: [id number] Reading MD: Jessica Zuniga Measurements Intervals Abbot Rate: 79 P: 42 WY: 228 QRS: 3 QRSD: 96 T: 59 QT: 413 QTc: 475 Interpretive Statements Sinus rhythm Prolonged WY interval Low voltage, precordial leads Compared to ECG 04/10/2023 01:40:54 Low QRS voltage now present Sinus tachycardia no longer present Electronically Signed On 07-21-2024 17:25:38 HEELER MACHINE by Jessica Zuniga Please click the below link to view image of tracing.
[2024-07-21 06:21] LABS: CREATININE 1.2 mg/dL (0.5-1.3); MAGNESIUM 1.8 mg/dL (1.80-2.40); PHOSPHORUS 3.6 mg/dL (2.5-4.9); POTASSIUM 4.8 mmol/L (3.5-5.1); THYROID STIMULATING HORMONE 1.33 uIU/mL (0.36-3.74)
[2024-07-21] MEDS: MAGNESIUM 2GM PREMIX 50ML 50 ML IV SCH (06:27)
[2024-07-21] MEDS: INSULIN humuLIN R 100 UNIT/ML 3ML SQ SCH (06:27)
--- NOTE | 2024-07-21 06:27 | NUR ---
Magnesium 1.8 mg/dL, RBS 167 mg/dL Magnesium 2GM/50 mL administered at rate of 25cc/hr through 20G IV to right forearm per magnesium protocol. No insulin coverage needed at this time per insulin sliding scale.
[2024-07-21 06:57] LABS: ABG BASE EXCESS 0.3 mmol/L (-2.0-3.0); ABG HCO3 28.8 mmol/L (21.0-28.0); ABG OXYGEN SATURATION 90.4 % (94.0-98.0); ABG PCO2 63 mmHg (35-48); ABG PH 7.278 (7.350-7.450); DEVICE COMMENT LR DANIEL; VENT MODE, BG NC (ROOM AIR)
[2024-07-21] MEDS: metoLAZONE 2.5 MG TABLET PO SCH ×2 (09:00→20:53)
[2024-07-21] MEDS: SPIRONOLACTONE 25 MG TAB PO SCH (09:00)
[2024-07-21] MEDS: monteLUKAST sodIUM 10 MG TAB PO SCH (09:21)
[2024-07-21] MEDS: ENOXAPARIN SODIUM 40 MG/0.4 ML SYRINGE SQ SCH (09:22)
--- NOTE | 2024-07-21 13:26 | PN ---
[facility] PROGRESS NOTE Date of Service: Jul 21, 2024 Time of Service: 13:[address] Erickson SUBJECTIVE: [ Mr. Garcia is an 79-year-old male with a history of hypertension, CAD, obstructive sleep apnea, COPD, O2 dependent usually on 3 L O2, chronic knee and back pain, AAA, and chronic bilateral lower extremity venous ulcers, chronic lower extremity cellulitis who [place] [facility] [place] for evaluation of shortness of breath. According to EMS [facility]. The patient reported cough, congestion, and some mild difficulty breathing. Chest x-ray: Mild bilateral pulmonary infiltrates are seen may be related to mild pulmonary vascular congestion with possible superimposed pneumonitis. ABGs : PH 7.308, pCO2 60, PO2 72.5, bicarbonate 29.5, O2 sats 93. ED provider request patient be admitted to the hospital with a diagnosis of pneumonia, status dermatitis to bilateral lower extremities, and COPD exacerbat ion. 07/21 patient was seen by nurse practitioner and physician during rounding in room 302 lying in bed. Patient just underwent 2D echo and at this moment he is on 6 L nasal cannula. RT was called to place patient on a BiPAP due to most recent ABG gases abnormal results. We are pending further evaluation/recommendations of board certified music therapist, ID and wound. Patient continues to be on levofloxacin methylprednisolone IV ipratropium and albuterol. We will continue to monitor patient in the meantime. A.m. labs.] REVIEW OF SYSTEMS 12-point ROS reviewed with patient. All pertinent positives mentioned above. Otherwise negative, noncontributory, or non-pertinent. PHYSICAL EXAM GENERAL APPEARANCE: The patient is awake, alert, and oriented, in no acute cardiopulmonary distress. NEUROLOGICAL: Cranial nerves II-XII grossly intact. Motor is 5/5 in bilateral upper and lower extremities proximal to distal. No sensory deficits. HEENT: Face is symmetric. Pupils are equal and reactive. Extraocular movements are intact. NECK: Supple. No JVD. No thyromegaly. No submental, submandibular, pre- /postauricular, occipital or supraclavicular lymphadenopathy. CHEST: Normal chest expansion. No Telemetry. LUNGS: Tachypneic, wheezing, and lungs sounded wet. Patient had a very productive cough, and was spitting phlegm into a napkin while the I assessed him. CARDIOVASCULAR: Regular. S1 and S2 normal. No appreciable rubs, murmurs or gallops. ABDOMEN: Soft, nontender, and nondistended. There is no rebound, voluntary guarding, or rigidity. : Deferred. No Ramirez. EXTREMITIES: Non-edematous and not cyanotic. No clubbing. Good capillary refill. SKIN: No skin breakdown. Vital Signs (last 8hr) Date Time Temp Pulse Resp B/P (MAP) Pulse Ox O2 Delivery O2 Flow Rate FiO2 07/21/24 11:42 97.5 81 19 126/62 91 Nasal Cannula 5.0 07/21/24 10:06 91 25 07/21/24 10:04 86 25 40 07/21/24 08:15 91 Nasal Cannula* 3 32 07/21/24 07:48 97.3 83 19 141/56 90 Nasal Cannula 5.0 07/21/24 06:43 88 22 N/Cannula Low lpm 5.0 07/21/24 06:42 88 22 LABS: Laboratory: Test 07/21/24 11:36 07/21/24 06:55 07/21/24 05:28 07/20/24 21:13 Range/Units Whole Blood Glucose 208 H 70-110 MG/DL Blood Gas Specimen Type Arterial Arterial Blood pH 7.278 L 7.350-7.450 Arterial Blood Partial Pressure CO2 63 *H 35-48 mmHg Arterial Blood Partial Pressure O2 67.0 L 83.0-108.0 mmHg Arterial Blood HCO3 28.8 H 21.0-28.0 mmol/L Arterial Blood Oxygen Saturation 90.4 L 94.0-98.0 % Arterial Blood Base Excess 0.3 -2.0-3.0 mmol/L Blood Gas Temperature 37.0 35.5-37.0 CELSIUS Blood Gas Flow-by 5.00 0.00-15.00 L/min Blood Gas Vent Mode NC ROOM AIR FiO2 40.0 % Blood Gas Specimen Comment LR AVIS White Blood Count 4.6 L 4.8-10.8 K/uL Red Blood Count 3.98 L 4.50-6.20 MIL/uL Hemoglobin 10.7 L 14.0-18.0 g/dL Hematocrit 36.1 L 42-54 % Mean Corpuscular Volume 90.7 79-99 fL Mean Corpuscular Hemoglobin 26.9 L 27.0-33.0 pg Mean Corpuscular Hemoglobin Concent 29.6 L 32.0-36.0 g/dL Red Cell Distribution Width 16.5 H 11.0-15.5 % Platelet Count 271 130-400 K/uL Mean Platelet Volume 9.1 7.5-10.5 fL Immature Granulocyte % (Auto) 0.2 0-1 % Neutrophils (%) (Auto) 88.5 H 40.0-77.0 % Lymphocytes (%) (Auto) 9.8 L 21.0-51.0 % Monocytes (%) (Auto) 1.3 L 3.0-13.0 % Eosinophils (%) (Auto) 0.2 0.0-8.0 % Basophils (%) (Auto) 0.0 0.0-5.0 % Neutrophils # (Auto) 4.1 1.8-7.7 K/uL Lymphocytes # (Auto) 0.5 L 1.0-4.8 K/uL Monocytes # (Auto) 0.1 0.1-1.0 K/uL Eosinophils # (Auto) 0.01 0.00-0.70 K/uL Basophils # (Auto) 0.00 0.00-0.20 K/uL Absolute Immature Granulocyte (auto 0.01 0-1 K/uL Nucleated Red Blood Cells 0.0 0.0-0.19 % White Cell Morphology Comment See comments Sodium Level 141 136-145 mmol/L Potassium Level 4.8 3.5-5.1 mmol/L Chloride Level 105 101-111 mmol/L Carbon Dioxide Level 31 21-32 mmol/L Blood Urea Nitrogen 15 7-18 mg/dL Creatinine 1.2 0.5-1.3 mg/dL Glomerular Filtration Rate Calc 61 >90 mL/min Random Glucose 172 #H 70-105 mg/dL Total Calcium 8.2 L 8.5-10.1 mg/dL Phosphorus Level 3.6 2.5-4.9 mg/dL Magnesium Level 1.80 1.80-2.40 mg/dL Thyroid Stimulating Hormone (TSH) 1.33 0.36-3.74 uIU/mL Urine Color YELLOW YELLOW Urine Appearance CLEAR CLEAR Urine pH 5.0 5.0-8.0 Urine Specific [place] 1.024 1.001-1.031 Urine Protein 10 H NEGATIVE mg/dL Urine Glucose (UA) NEGATIVE NEGATIVE mg/dL Urine Ketones 5 H NEGATIVE mg/dL Urine Occult Blood NEGATIVE NEGATIVE Urine Nitrate NEGATIVE NEGATIVE Urine Bilirubin NEGATIVE NEGATIVE mg/dL Urine Urobilinogen 0.2 0.2-1.0 mg/dL Urine Leukocyte Esterase 25 H NEGATIVE Sultana/uL Urine RBC 0-1 0-1 /HPF Urine WBC 2-5 H 0-1 /HPF Urine Squamous Epithelial Cells RARE 0-2 /HPF Urine Bacteria RARE None Seen /HPF Test 07/20/24 21:05 07/20/24 18:34 07/20/24 18:17 Range/Units Influenza Type A Antigen Negative For Type A NEGATIVE Influenza Type B Antigen Negative For Type B NEGATIVE SARS-CoV-2, RNA, NAAT NEGATIVE SARS CoV-2 NEGATIVE Hemoglobin (Blood Gas) 11.3 L 13.5-17.5 g/dL Sodium (Blood Gas) 139 136-145 MMOL/L Bedside Potassium (Blood Gas) 3.9 3.4-4.5 MMOL/L Bedside Chloride (Blood Gas) 103 98-107 MMOL/L Bedside Glucose (Blood Gas) 103 H 65-95 MG/DL Bedside Ionized Calcium (Blood Gas) 1.13 L 1.15-1.33 MMOL/L Bedside Lactic Acid (Blood Gas) 1.14 H 0.36-0.75 MMOL/L Red Blood Cell Morphology See comments Lactic Acid Level 2.0 0.8-2.5 mmol/L Troponin I High Sensitivity 7 4-75 ng/L B-Type Natriuretic Peptide 100 0-100 pg/mL Procalcitonin < 0.05 L 0.05-0.5 ng/mL Current Medications Medications (Trade) Dose Ordered Sig/Viola Route PRN Reason Start Time Stop Time Status Last Admin Dose Admin Acetaminophen (TYLenol 325MG TAB) 650 mg Q6H PRN PO FEVER/MILD PAIN LEVEL 1-3 07/20/24 23:30 08/19/24 23:29 Acetaminophen (TYLenol 650MG SUPPOSITORY) 650 mg Q6H PRN RC FEVER / MILD PAIN 1-3 IF NPO 07/20/24 23:30 08/19/24 23:29 Acetylcysteine (MUComyst 20% 4ML) 400 mg [id number] IH 07/20/24 22:10 08/19/24 22:09 07/21/24 10:04 400 MG Albuterol Sulfate (Proventil 0.083% 2.5mg/3ml) 2.5 mg [id number] IH 07/20/24 22:00 08/19/24 21:59 07/21/24 10:04 2.5 MG Atorvastatin Calcium (LIPItor 40MG) 40 mg HS PO 07/21/24 21:00 08/20/24 20:59 Docusate Sodium (COLace 100MG CAP) 100 mg BID PRN PO c 07/20/24 23:30 08/19/24 23:29 Enoxaparin Sodium (Lovenox) 40 mg DAILY SQ 07/21/24 09:00 08/20/24 08:59 07/21/24 09:22 40 MG Guaifenesin (RobiTUSSin SUGAR-FREE 100 MG/ 5 ML UDCUP) 400 mg Q4H PRN PO COUGH/COLD SYMPTOMS 07/21/24 05:30 08/20/24 05:29 Home Med (Home Medication) Prazosin HCl 1 MG HS PO 07/21/24 21:00 08/20/24 20:59 Home Med (Home Medication) Ropinirole HCl 4 MG QIDP PRN PO LP 07/21/24 09:30 08/20/24 09:29 Home Med (Home Medication) Sertraline HCl 25 MG DAILY PO 07/22/24 09:00 07/21/24 09:25 DC Hydralazine HCl (APRESOLine 20MG INJ) 10 mg Q2H PRN IV SBP GREATER THAN 160 07/20/24 23:30 08/19/24 23:29 Insulin Human Regular (humuLIN R 100 UNIT/ML 3ML) INSULIN SLIDING SCAL... ACHS SQ 07/21/24 07:30 08/20/24 07:29 07/21/24 12:33 3 UNIT Ipratropium Homer (AtrovENT UD) 0.5 mg [id number] IH 07/20/24 22:00 08/19/24 21:59 07/21/24 10:04 0.5 MG Lactulose (Constulose 20gm/ 30ml Udcup) 20 gm Q6H PRN PO CONSTIPATION 07/20/24 23:30 08/19/24 23:29 Levofloxacin/ Dextrose 150 ml @ 100 mls/hr Q48H IV 07/22/24 21:00 08/01/24 20:59 Magnesium Sulfate 50 ml @ 0 mls/hr PROTOCOL IV 07/21/24 05:00 08/20/24 04:59 07/21/24 06:27 25 MLS/HR Methylprednisolone Sodium Succinate (Solu-medROL 125MG) 60 mg Q6H IVP 07/21/24 03:00 08/20/24 02:59 07/21/24 09:20 60 MG Metolazone (zarOXOlyn) 5 mg Q2D PO 07/21/24 09:00 07/21/24 09:25 DC Mirtazapine (REMeron 15 MG TAB) 30 mg HS PO 07/21/24 21:00 08/20/24 20:59 Miscellaneous Medication (Simvastatin (Zocor)) 40 mg HS PO 07/21/24 21:00 07/21/24 08:54 DC Montelukast Sodium (SinguLAIR) 10 mg DAILY PO 07/21/24 09:00 08/20/24 08:59 07/21/24 09:21 10 MG Ondansetron HCl (zoFRAN 4MG INJ) 4 mg Q6H PRN IVP NAUSEA/VOMITING 07/20/24 23:30 08/19/24 23:29 Spironolactone (Aldactone 25mg) 25 mg DAILY PO 07/21/24 09:00 07/21/24 09:25 DC Tamsulosin HCl (FloMAX) 0.4 mg HS PO 07/21/24 21:00 08/20/24 20:59 Temazepam (restORIL 15 MG CAP) 15 mg HS PRN PO INSOMNIA/SLEEP 07/20/24 23:30 08/19/24 23:29 Tramadol HCl (UltRAM) 50 mg Q6H PRN PO PAIN LEVEL 7 TO 10 07/21/24 01:30 07/26/24 01:29 07/21/24 01:41 50 MG Venlafaxine HCl (EffEXOR 50 mg TAB) 150 mg DAILY PO 07/21/24 09:00 08/20/24 08:59 DIAGNOSTICS / RADIOLOGY: [ ] ASSESSMENT: Acute hypoxemic hypercapnic respiratory failure, requiring BiPAP COPD exacerbation Acute complicated cystitis, POA Chronic bilateral lower extremity venous ulcers Acute on chronic lower extremity cellulitis Anemia of chronic disease Hypomagnesemia Hyperglycemia Obstructive sleep apnea Morbid obesity, BMI 41.1 Chronic problem list: HLP, BPH, anemia, chronic back and knee pain, PTSD, morbid obesity PLAN: -Admit to PCCU with continuous telemetry monitoring -Monitor respiratory status closely. -Start BiPAP, titrate oxygen prn to keep Spo2>/+=92%. -monitor ABGs and chest x-ray -Albuterol and Atrovent nebulizer treatments scheduled q.4 hours. -RT to provide IS and education on use. -Robitussin DM as needed cough. -Start montelukast 10 mg p.o. daily. -start Mucomyst 400 mg IH q.4 hours. -Solu-Medrol 60 mg IV q.6 hours -Continue antibiotic therapy: Levaquin IV (allergies to vancomycin and piperacillin,tazobactam) -Consult pulmonology for acute hypoxemic and hypercapnic respiratory failure, COPD exacerbation. -Consult infectious disease for acute on chronic/ recurrent lower extremity cellulitis. -p.r.n. medications for: Pain management, fever, nausea, vomiting, constipation, hypertension -Glucometer checks AC & HS needed with insulin regular sliding scale coverage as needed. -Blood pressure checks every 4 hours and as needed. -AM labs: monitor renal and liver function, monitor electrolytes and replace PRN -GI and DVT prophylaxis ATTESTATION BY PHYSICIAN I have seen and examined the patient. I reviewed the documentation, medical decision making, and treatment plan as noted by the mid-level provider above. I agree with the findings and plan of care. James Erickson IV, MD, [facility] RESET Jul 21, 2024 13:26
[2024-07-21] MEDS ORDERED: ondanSETRON 4MG TABLET PO PRN (13:30)
[2024-07-21] MEDS: SODIUM CHLORIDE 3% FOR INHALATION 4 ML/AMP VIAL.NEB IH ONE ×3 (13:47→23:19)
--- NOTE | 2024-07-21 14:38 | NUR ---
[facility] Consult: Patient assessed by wound healing team. See wound assessment. Assessment and recommendations provided to primary nurse. Education provided. Wound care done. Addendum: 07/21/24 at 1523 by MARIA ELENA PAN RN RN/ Amended: Links added.
[2024-07-21] MEDS ORDERED: Solu-medROL 40MG VIAL IVP SCH (15:00)
--- NOTE | 2024-07-21 15:51 | CONS ---
[facility] CONSULTATION NOTE Date Patient Seen: Jul 21, 2024 Time of Visit: 15:24 Supervising Physician: [Dr. Arambula] Reason for Consultation: [Acute hypoxic, hypercapnic respiratory failure, COPD exacerbation] Primary Care Physician: [[facility]] Outpatient Specialists: [ ] Inpatient Consults: [[facility]] PROBLEM LIST: Acute hypoxemic hypercapnic respiratory failure, requiring BiPAP Acute on chronic diastolic heart failure, POA COPD exacerbation, POA Acute complicated cystitis, POA Chronic bilateral lower extremity venous ulcers Acute on chronic lower extremity cellulitis Anemia of chronic disease Hypomagnesemia Hyperglycemia Hyperlipidemia Benign prostate hyperplasia Post traumatic stress disorder Chronic back pain Obstructive sleep apnea Morbid obesity, BMI 41.1 Hx of DVT, R-popliteal vein 12/31/2023 Plan: Order CT chest w/o contrast Start lasix 40mg Q8H Stop solumedrol, start prednisone Order venous doppler Restrict fluid intake, daily weights, monitor I&O Pending repeat echocardiogram Continue levaquin for now adjust antibiotics as indicated Order sputum culture, follow blood culture result Other management per primary HPI: [This is an 79-year-old male with a history of diabetes, hypertension, CAD, DRAKE and COPD on home oxygen who presents to the ED for evaluation of progressively worsening shortness of breath. [facility] to come to the ED for treatment of COPD exacerbation. Patient reports cough, congestion and difficulty breathing. He has a history of chronic bilateral lymphedema. His last echo on 03/2023 showed an EF of 55% with otherwise normal findings. Patient denies fever, chills, body aches or sick contacts. States recently quit smoking about a week ago after he was diagnosed with COPD. No current use of inhalers but does have an oxygen generator and portable oxygen at home. His labs on admission showed WBC of 5, hemoglobin, platelets 314. BNP shows mildly elevated creatinine of 1.3 and hypomagnesemia 1.6, no other electrolyte derangement. His ABG is consistent with hypoxia and hypercapnia. His profile was 0.05, troponin seven, BNP was 100 on admission. Lactic acid was 2.0 and TSH was 1.33. Patient was initiated on Levaquin, pending blood cultures. Was initiated on Solu-Medrol 60mg Q6H on admission as well as duonebs. He continues with BiPAP use currently.] PAST MEDICAL HX: see above PAST SURGICAL HX: noncontributory SOCIAL HISTORY: No tobacco, ETOH, or illicit drug use Coded Allergies: piperacillin (Verified Allergy, Severe, ANAPHYLAXIS, 11/19/22) 11/17/2022 tazobactam (Verified Allergy, Severe, ANAPHYLAXIS, 11/19/22) 11/17/2022 vancomycin (Verified Allergy, Severe, anaphylaxis, 11/19/22) 11/17/2022. gabapentin (Unverified Adverse Reaction, Unknown, 06/17/22) GI UPSET. naproxen (Unverified Adverse Reaction, Unknown, 06/17/22) GI UPSET REVIEW OF SYSTEMS: 12 point ROS reviewed with patient. Pertinent positives mentioned above. Otherwise negative. PHYSICAL EXAM: GENERAL: alert, weak, awake oriented x 3 HEENT: EOMI, Sclera non icteric, moist mucosa NECK: Supple, no JVD, trachea midline LUNGS: Clear breath sounds bilaterally. No wheezes HEART: Regular rate and rhythm. Normal S1 and S2, without murmurs ABD: Abdomen soft, nontender. Bowel sounds present EXT: No clubbing cyanosis or edema NEURO: Alert and oriented to person, follows commands Vital Signs (last 8hr) Date Time Temp Pulse Resp B/P (MAP) Pulse Ox O2 Delivery O2 Flow Rate FiO2 07/21/24 13:52 83 28 40 07/21/24 13:47 83 28 07/21/24 11:42 97.5 81 19 126/62 91 Nasal Cannula 5.0 07/21/24 10:06 91 25 07/21/24 10:04 86 25 40 07/21/24 08:15 91 Nasal Cannula* 3 32 07/21/24 07:48 97.3 83 19 141/56 90 Nasal Cannula 5.0 LABS: Hematology Labs: Test 07/21/24 05:28 07/20/24 18:17 Range/Units White Blood Count 4.6 L 4.8-10.8 K/uL Red Blood Count 3.98 L 4.50-6.20 MIL/uL Hemoglobin 10.7 L 14.0-18.0 g/dL Hematocrit 36.1 L 42-54 % Mean Corpuscular Volume 90.7 79-99 fL Mean Corpuscular Hemoglobin 26.9 L 27.0-33.0 pg Mean Corpuscular Hemoglobin Concent 29.6 L 32.0-36.0 g/dL Red Cell Distribution Width 16.5 H 11.0-15.5 % Platelet Count 271 130-400 K/uL Mean Platelet Volume 9.1 7.5-10.5 fL Immature Granulocyte % (Auto) 0.2 0-1 % Neutrophils (%) (Auto) 88.5 H 40.0-77.0 % Lymphocytes (%) (Auto) 9.8 L 21.0-51.0 % Monocytes (%) (Auto) 1.3 L 3.0-13.0 % Eosinophils (%) (Auto) 0.2 0.0-8.0 % Basophils (%) (Auto) 0.0 0.0-5.0 % Neutrophils # (Auto) 4.1 1.8-7.7 K/uL Lymphocytes # (Auto) 0.5 L 1.0-4.8 K/uL Monocytes # (Auto) 0.1 0.1-1.0 K/uL Eosinophils # (Auto) 0.01 0.00-0.70 K/uL Basophils # (Auto) 0.00 0.00-0.20 K/uL Absolute Immature Granulocyte (auto 0.01 0-1 K/uL Nucleated Red Blood Cells 0.0 0.0-0.19 % White Cell Morphology Comment See comments Red Blood Cell Morphology See comments Chemistry Labs: Test 07/21/24 11:36 07/21/24 05:28 07/20/24 18:17 Range/Units Whole Blood Glucose 208 H 70-110 MG/DL Sodium Level 141 136-145 mmol/L Potassium Level 4.8 3.5-5.1 mmol/L Chloride Level 105 101-111 mmol/L Carbon Dioxide Level 31 21-32 mmol/L Blood Urea Nitrogen 15 7-18 mg/dL Creatinine 1.2 0.5-1.3 mg/dL Glomerular Filtration Rate Calc 61 >90 mL/min Random Glucose 172 #H 70-105 mg/dL Total Calcium 8.2 L 8.5-10.1 mg/dL Phosphorus Level 3.6 2.5-4.9 mg/dL Magnesium Level 1.80 1.80-2.40 mg/dL Thyroid Stimulating Hormone (TSH) 1.33 0.36-3.74 uIU/mL Lactic Acid Level 2.0 0.8-2.5 mmol/L Troponin I High Sensitivity 7 4-75 ng/L B-Type Natriuretic Peptide 100 0-100 pg/mL Procalcitonin < 0.05 L 0.05-0.5 ng/mL DIAGNOSTICS / RADIOLOGY RESULTS: CHEST 1VW HISTORY: Shortness of breath COMPARISON: 12/31/2023 FINDINGS: A frontal projection of the chest was obtained. Mild bilateral pulmonary infiltrates are seen may be related to mild pulmonary vascular congestion with possible superimposed pneumonitis. The heart is borderline enlarged. Degenerative changes are seen. No evidence of aortic calcification is seen. IMPRESSION: 1. Mild bilateral pulmonary infiltrates are seen may be related to mild pulmonary vascular congestion with possible superimposed pneumonitis. PLAN NEURO: Minimize central acting medications as possible. Maintain fall precautions, adequate lighting during the day PULMONARY: Supplemental 02 as needed. Maintain aspiration precautions at all times CARDIOVASCULAR: Follow hemodynamics. Vital signs per facility protocol GI & NUTRITION: Continue with nutritional support. Continue stool softeners and laxatives as needed. KIDNEYS & ELECTROLYTES: Strict monitoring of intake, output and overall fluid balance. Avoid nephrotoxic medications to the extent possible. Medications to be dosed according to renal function. Monitor electrolytes and replace as needed ENDOCRINE: Maintain blood glucose between 100-180 at all times. Hypoglycemia protocol in place INFECTIOUS DISEASE: Trend temperature, WBC and procalcitonin level Follow cultures, deescalate antibiotics as soon as possible. Panculture if new onset fever ONCOLOGY/HEMATOLOGY/COAGULATION: Monitor for s/s of bleeding Monitor hemoglobin, coagulation studies as needed SKIN: Pressure ulcer prevention per facility protocol Specialty mattress ORTHO/REHAB: Continue PT/OT Prophylaxis: Continue GI and DVT prophylaxis Code Status: Full Resuscitation Disposition: TBD Other: Total patient care time exceeds 35 minutes excluding all procedures. BRIAN SHANKS Jul 21, 2024 15:51
[2024-07-21] MEDS: LINEZOLID 600 MG/ISO-OSM 300 ML IV SCH (16:14)
[2024-07-21] MEDS: furoSEMIDE 40MG VIAL IV SCH (16:29)
--- NOTE | 2024-07-21 19:02 | HMCSR ---
APPROVED REPORT EXAM: Two-dimensional and M-mode echocardiogram with Doppler and color Doppler. Study Details: Hx:Morbid obesity, COPD, Obstructive sleep apnea, Restless leg syndrome, Chronic bilat eral lower extremity venous ulcers, Chronic lower extremity cellulitis INDICATION ICD: Chest discomfort, respiratory distress 2D Dimensions RVDd4.0 cmLVEF(%)64.7 (>50%)LVED Vol(simp.)110.0 mL IVSd0.8 (0.7-1.1cm)FS(%)36 %LVES Vol(simp.)45.8 mL LVDd5.6 (3.8-5.6cm)LA (2D)4.4 (1.6-4.0cm)LVEF(%, simp.)58 % PWd1.3 (0.7-1.1cm)LVOT diam2.2 (1.8-2.4cm)LA ESV INDEX (4CH)25.00 mL/m2 IVSs1.1 cmIVC diam3.0 cm LVDs3.6 (2.5-4.0cm) PWs1.4 cm M-Mode Dimensions EPSS0.9 cm LA (MM)4.4 (1.6-4.0cm) Ao Root(MM)3.6 (2.0-3.7cm) Aortic Valve AoV VTI0.4 mAo Mean GR6.0 mmHgLVOT VTI0.30 m CRAIG (VMAX)3.2 cm2AVA (VTI) 3.2 cm2 Mitral Valve MV E Vmax72.8 cm/sDECEL Ncfh469 ms MV A Vmax81.0 cm/sP 1/2 T43 ms E/A ratio0.9MVA (PHT)5.1 cm2 TDI E/E' Medial8.5E/E' Lateral8.5 Medial E' Peak V8.60 cm/sLateral E' Peak V8.60 cm/s Pulmonary Valve PV Vmax1.1 m/s PV Peak GR4.5 mmHg Tricuspid Valve RAP (EST) 15 [id number] mmHg Left Ventricle The left ventricle is normal size. There is normal left ventricular wall thickness. LVEF is 55-60%. U nable to assess Diastology due to poor tissue Doppler signals. Right Ventricle The right ventricle is normal size. The right ventricular systolic function is normal. Atria The left atrium size is normal. The right atrium is moderately dilated. Aortic Valve Aortic valve is not well visualized but no significant valvular abnormalities noted. No aortic regurg itation is present. There is no aortic valvular stenosis. Mitral Valve The mitral valve is normal in structure. There is no mitral valve regurgitation noted. There is no mi tral valve stenosis. Tricuspid Valve The tricuspid valve is normal in structure. There is no tricuspid valve regurgitation noted. Pulmonic Valve Pulmonic valve is not well visualized. Great Vessels The aortic root is normal in size. IVC is dilated and collapses <50% with inspiration. Pericardium There is no pericardial effusion. Other Information Quality : Technically difficult study due to body habitus. Technically limited study due to body habitus.COPD. Conclusion The left ventricle is normal size. LVEF is 55-60%. Unable to assess Diastology due to poor tissue Doppler signals. The right ventricular systolic function is normal. Both atria appear normal in size. No hemodynamically significant valvular abnormalities by Doppler gradients appreciated. IVC is dilated and collapses <50% with inspiration. There is no pericardial effusion.
--- NOTE | 2024-07-21 20:08 | CONS ---
INFECTIOUS DISEASE CONSULTATION NOTE DATE OF SERVICE: 07/21/2024 REQUESTING PHYSICIAN: Dr. Cruz. REASON FOR CONSULTATION: Cellulitis and antibiotic management. HISTORY OF PRESENT ILLNESS: An 79-year-old male with history of morbid obesity, CHF, chronic cellulitis and lymphedema presented to the hospital with bilateral lower leg pain, swelling and redness. The patient also complaining of shortness of breath and coughing. The patient found to have hypoxic respiratory failure, was admitted. The patient has been placed on BiPAP. The patient chest x-ray showed mild pulmonary congestion. No fever or chills. No diarrhea. No abdominal pain. The patient has chronic ulcer and cellulitis to both legs. Denies any trauma or fall. PAST MEDICAL HISTORY: * Bilateral leg ulcer. * Lower extremities lymphedema. * Morbid obesity. * Obstructive sleep apnea. * Coronary artery disease. * Abdominal aortic aneurysm. PAST SURGICAL HISTORY: * Back surgery. * PCI. ALLERGIES: Include: * GABAPENTIN. * NAPROXEN. * ZOSYN. * VANCOMYCIN. CURRENT MEDICATIONS: Include: * Levofloxacin. * DuoNeb * Solu-Medrol. * Tylenol. SOCIAL HISTORY: . No alcohol, tobacco or illicit drug use. FAMILY HISTORY: Noncontributory. REVIEW OF SYSTEMS: CONSTITUTIONAL: No fever, no chills, no weight loss or night sweats. EYES: No eye pain, no photophobia or diplopia. HENT: No sore throat, no rhinorrhea or earache. NECK: No neck pain or neck swelling. RESPIRATORY: Positive for cough. No hemoptysis or pleuritic pain. CARDIOVASCULAR: Positive for shortness of breath. No chest pain, no palpitation or orthopnea. GASTROINTESTINAL: Denied nausea, vomiting, no abdominal pain. GENITOURINARY: No dysuria, urgency or urinary frequency. CENTRAL NERVOUS SYSTEM: No headache, dyspnea, or slurred speech. PSYCHIATRY: No depression. No suicidal ideation. MUSCULOSKELETAL: Positive for bilateral leg swelling, redness and pain. PHYSICAL EXAMINATION: GENERAL: Elderly male, awake. VITAL SIGNS: Temperature 97.5, pulse 81, respiratory rate 19, BP 126/82. EYES: No icterus. Pupils equal and reactive. HENT: No oral thrush seen. Moist oral mucosa. NECK: Supple, no JVD or thyromegaly. LUNGS: Good air entry. No rales, no rhonchi. CARDIOVASCULAR: S1, S2 regular. No murmur heard. ABDOMEN: Morbidly obese, soft, nontender. Bowel sound is present. CENTRAL NERVOUS SYSTEM: Awake, alert, oriented x 3. No focal deficits. SKIN: No rashes, no itchiness. LYMPHATIC: There is bilateral inguinal lymphadenopathy. BACK: No deformity, no pressure ulcer. EXTREMITIES: Extensive cellulitis with lymphedema and blister formation involving both legs, worse on the right side. LABORATORY DATA: Sodium 141, potassium 4.2, BUN 15, creatinine 1.2. WBC 4.7, hemoglobin 10.7, platelet 217. Influenza antigen negative. RADIOLOGY: Chest x-ray shows mild bilateral infiltrates. ASSESSMENT: An 79-year-old male presented with cough, shortness of breath. CURRENT PROBLEM: Include: * Bilateral leg ulcer. * Bilateral lower extremity cellulitis. * Hypoxic respiratory failure. * Acute on chronic heart failure. * Morbid obesity. * Obstructive sleep apnea. * Debility. PLAN: * Continue wound care. * Continue linezolid. * Continue levofloxacin. * Continue BiPAP therapy. * Continue DVT prophylaxis. * Monitor electrolytes. * Continue bronchodilator. * Continue antiemetic. * The patient will be followed up closely. Thank you for allowing me to participate in the care of this patient. TID: [id number] RECEIPT: [id number] MTD
[2024-07-21] MEDS: tamSULOsin HCL 0.4 MG CAP.ER.24H PO SCH (20:54)
[2024-07-21] MEDS: mirtAZAPine 15 MG TABLET PO SCH (20:54)
[2024-07-21] MEDS: atorVAStatin 40 MG TABLET PO SCH (20:54)
[2024-07-21] MEDS: Prazosin HCl 1 MG PO SCH (21:00)
[2024-07-21] MEDS ORDERED: NON-FORMULARY MEDICATION 1 EACH (Simvastatin (Zocor) 40 MG) PO SCH (21:00)
--- NOTE | 2024-07-21 21:09 | NUR ---
RBS 182 mg/dL Patient administered 4 units of humulin R subcutaneous to patient's left arm. Patient tolerated injection well.
[2024-07-21] MEDS: NYSTatin 15 GM POWDER TP SCH (21:28)
[2024-07-21] MEDS: BALSAM PERU/CASTOR OIL 60 GM TUBE TP SCH (21:29)
--- NOTE | 2024-07-21 23:00 | NUR ---
IV insertion Patient's IV pump continuously reading pressure high to current 20G to right forearm near wrist. New 20G IV inserted to mid-right forearm. IV infusion restarted on new IV. No high pressure readings given by IV pump. Patient tolerated insertion well.
[2024-07-21] MEDS: levoFLOXacin 500 MG/D5W 100 ML 100 ML IV SCH (23:58)
[2024-07-22] VITALS (13 sets, daily range): BP systolic 103–144; BP diastolic 42–69; PULSE 66–90; RESP 18–20; TEMP 97.7–98; O2SAT 90–92
[2024-07-22 04:05] LABS: BASOPHILS # (AUTO) 0.02 K/uL (0.00-0.20); BASOPHILS % (AUTO) 0.3 % (0.0-5.0); HEMATOCRIT 32.6 % (42-54); IMMATURE GRANULOCYTE ABSOLUTE 0.05 K/uL (0-1); LYMPHOCYTES # (AUTO) 0.9 K/uL (1.0-4.8); LYMPHOCYTES % (AUTO) 11.7 % (21.0-51.0); MEAN CORPUSCULAR HEMOGLOBIN 26.4 pg (27.0-33.0); MEAN CORPUSCULAR HGB CONC 29.4 g/dL (32.0-36.0); MEAN CORPUSCULAR VOLUME 89.6 fL (79-99); MONOCYTES # (AUTO) 0.6 K/uL (0.1-1.0); MONOCYTES % (AUTO) 7.2 % (3.0-13.0); NEUTROPHILS # (AUTO) 6.3 K/uL (1.8-7.7); NEUTROPHILS % (AUTO) 80.2 % (40.0-77.0); PLATELET COUNT (AUTO) 256 K/uL (130-400); RED BLOOD CELL COUNT(AUTO) 3.64 MIL/uL (4.50-6.20); RED CELL DISTRIBUTION WIDTH 16.5 % (11.0-15.5); WHITE BLOOD COUNT (AUTO) 7.8 K/uL (4.8-10.8)
[2024-07-22 04:23] LABS: ALBUMIN 2.3 g/dL (3.5-5.0); BILIRUBIN,TOTAL 0.2 mg/dL (0.2-1.0); CREATININE 1.6 mg/dL (0.5-1.3); MAGNESIUM 1.9 mg/dL (1.80-2.40); TOTAL PROTEIN, SERUM 6.4 g/dL (6.0-8.3)
--- NOTE | 2024-07-22 06:05 | NUR ---
RBS 140 mg/dL No insulin coverage needed at this time per insulin sliding scale.
[2024-07-22] MEDS: predniSONE 20 MG TABLET PO SCH (08:26)
[2024-07-22] MEDS: MULTIVITAMIN TABLET PO SCH (08:26)
[2024-07-22] MEDS: guaiFENesin SUGAR-FREE 100 MG/5 ML UDCUP PO PRN (08:26)
[2024-07-22] MEDS: doCUSate SODIUM 100 MG CAP PO PRN (08:27)
[2024-07-22] MEDS ORDERED: SERTRALINE HCL 25 MG PO SCH (09:00)
--- NOTE | 2024-07-22 10:10 | PN ---
[facility] PROGRESS NOTE Date Patient Seen: Jul 22, 2024 Time of Visit: 10:07 Supervising Physician: Dr. Arambula Primary Care Physician: [[facility]] Outpatient Specialists: [ ] Inpatient Consults: [[facility]] PROBLEM LIST: Acute hypoxemic hypercapnic respiratory failure, requiring BiPAP Acute on chronic diastolic heart failure, POA- LVEF 55-60% Acute renal failure from ATN COPD exacerbation, POA Acute complicated cystitis, POA Chronic bilateral lower extremity venous ulcers Acute on chronic lower extremity cellulitis Anemia of chronic disease Hypomagnesemia Hyperglycemia Hyperlipidemia Benign prostate hyperplasia Post traumatic stress disorder Chronic back pain Obstructive sleep apnea Morbid obesity, BMI 41.1 Hx of DVT, R-popliteal vein 12/31/2023 Plan: Stop solumedrol, start prednisone Order venous doppler Restrict fluid intake, daily weights, monitor I&O Pending repeat echocardiogram Continue levaquin for now adjust antibiotics as indicated Order sputum culture, follow blood culture result Other management per primary INTERVAL HISTORY: Patient is awake alert and oriented x3 no acute event overnight. Patient had been hypercapnic but can not tolerated BiPAP. We will repeat blood gas. Lab this morning with creatinine is up to 1.6 from 1.2. Potassium is 4.0 bicarb is 30. BUN is 26 patient likely is hypovolemic. We will give him IV fluids for today and repeat lab in the morning. Check MRSA swab. Continue antibiotic. Continue with prednisone. REVIEW OF SYSTEMS: 12 point ROS reviewed with patient. Pertinent positives mentioned above. Otherwise negative. PHYSICAL EXAM: GENERAL: alert, weak, awake oriented x 3 HEENT: EOMI, Sclera non icteric, moist mucosa NECK: Supple, no JVD, trachea midline LUNGS: Clear breath sounds bilaterally. No wheezes HEART: Regular rate and rhythm. Normal S1 and S2, without murmurs ABD: Abdomen soft, nontender. Bowel sounds present EXT: No clubbing cyanosis or edema NEURO: Alert and oriented to person, follows commands Vital Signs (last 8hr) Date Time Temp Pulse Resp B/P (MAP) Pulse Ox O2 Delivery O2 Flow Rate FiO2 07/22/24 08:06 97.7 76 19 112/54 88 Nasal Cannula 5.0 07/22/24 07:31 88 18 N/Cannula Low lpm 3.0 32 07/22/24 07:26 88 18 07/22/24 04:00 98.1 68 20 103/42 88 Nasal Cannula 5.0 LABS: Hematology Labs: Test 07/22/24 03:47 07/21/24 05:28 07/20/24 18:17 Range/Units White Blood Count 7.8 # 4.8-10.8 K/uL Red Blood Count 3.64 L 4.50-6.20 MIL/uL Hemoglobin 9.6 L 14.0-18.0 g/dL Hematocrit 32.6 L 42-54 % Mean Corpuscular Volume 89.6 79-99 fL Mean Corpuscular Hemoglobin 26.4 L 27.0-33.0 pg Mean Corpuscular Hemoglobin Concent 29.4 L 32.0-36.0 g/dL Red Cell Distribution Width 16.5 H 11.0-15.5 % Platelet Count 256 130-400 K/uL Mean Platelet Volume 9.3 7.5-10.5 fL Immature Granulocyte % (Auto) 0.6 0-1 % Neutrophils (%) (Auto) 80.2 H 40.0-77.0 % Lymphocytes (%) (Auto) 11.7 L 21.0-51.0 % Monocytes (%) (Auto) 7.2 3.0-13.0 % Eosinophils (%) (Auto) 0.0 0.0-8.0 % Basophils (%) (Auto) 0.3 0.0-5.0 % Neutrophils # (Auto) 6.3 1.8-7.7 K/uL Lymphocytes # (Auto) 0.9 L 1.0-4.8 K/uL Monocytes # (Auto) 0.6 0.1-1.0 K/uL Eosinophils # (Auto) 0.00 0.00-0.70 K/uL Basophils # (Auto) 0.02 0.00-0.20 K/uL Absolute Immature Granulocyte (auto 0.05 0-1 K/uL Nucleated Red Blood Cells 0.0 0.0-0.19 % White Cell Morphology Comment See comments Red Blood Cell Morphology See comments Chemistry Labs: Test 07/22/24 05:52 07/22/24 03:47 07/21/24 05:28 07/20/24 18:17 Range/Units Whole Blood Glucose 140 H 70-110 MG/DL Sodium Level 136 136-145 mmol/L Potassium Level 4.0 3.5-5.1 mmol/L Chloride Level 101 101-111 mmol/L Carbon Dioxide Level 30 21-32 mmol/L Blood Urea Nitrogen 26 H 7-18 mg/dL Creatinine 1.6 H 0.5-1.3 mg/dL Glomerular Filtration Rate Calc 43 >90 mL/min Random Glucose 162 H 70-105 mg/dL Total Calcium 8.1 L 8.5-10.1 mg/dL Magnesium Level 1.90 1.80-2.40 mg/dL Total Bilirubin 0.2 0.2-1.0 mg/dL Aspartate Amino Transf (AST/SGOT) 11 10-37 U/L Alanine Aminotransferase (ALT/SGPT) 18 12-78 U/L Alkaline Phosphatase 96 50-136 U/L Total Protein 6.4 6.0-8.3 g/dL Albumin 2.3 L 3.5-5.0 g/dL Phosphorus Level 3.6 2.5-4.9 mg/dL Thyroid Stimulating Hormone (TSH) 1.33 0.36-3.74 uIU/mL Lactic Acid Level 2.0 0.8-2.5 mmol/L Troponin I High Sensitivity 7 4-75 ng/L B-Type Natriuretic Peptide 100 0-100 pg/mL Procalcitonin < 0.05 L 0.05-0.5 ng/mL DIAGNOSTICS / RADIOLOGY RESULTS: [ ] PLAN NEURO: Minimize central acting medications as possible. Maintain fall precautions, adequate lighting during the day PULMONARY: Supplemental 02 as needed. Maintain aspiration precautions at all times CARDIOVASCULAR: Follow hemodynamics. Vital signs per facility protocol GI & NUTRITION: Continue with nutritional support. Continue stool softeners and laxatives as needed. KIDNEYS & ELECTROLYTES: Strict monitoring of intake, output and overall fluid balance. Avoid nephrotoxic medications to the extent possible. Medications to be dosed according to renal function. Monitor electrolytes and replace as needed ENDOCRINE: Maintain blood glucose between 100-180 at all times. Hypoglycemia protocol in place INFECTIOUS DISEASE: Trend temperature, WBC and procalcitonin level Follow cultures, deescalate antibiotics as soon as possible. Panculture if new onset fever ONCOLOGY/HEMATOLOGY/COAGULATION: Monitor for s/s of bleeding Monitor hemoglobin, coagulation studies as needed SKIN: Pressure ulcer prevention per facility protocol Specialty mattress ORTHO/REHAB: Continue PT/OT Prophylaxis: Continue GI and DVT prophylaxis Code Status: Full Resuscitation Disposition: TBD Other: Total patient care time exceeds 35 minutes excluding all procedures. BELEN BRAY SCREEN [employer]ING [employer] Jul 22, 2024 10:10
--- NOTE | 2024-07-22 10:15 | HMCIMG ---
ULTRASOUND VENOUS DOPPLER, BILATERAL LOWER EXTREMITIES INDICATION: Bilateral lower extremity pain and swelling TECHNIQUE: Routine grayscale and color Doppler ultrasound of the bilateral lower extremity veins performed. COMPARISON: No priors. FINDINGS: Posterior tibial veins were not well-demonstrated secondary to overlying bandaging. The demonstrated veins of the bilateral lower extremity including the common femoral vein, femoral vein, and popliteal vein are associated with normal compressibility. Normal respiratory variation was identified. No evidence for echogenic intraluminal thrombus formation. IMPRESSION: No sonographic evidence for deep venous thrombosis within the bilateral lower extremity veins.
--- NOTE | 2024-07-22 10:22 | PN ---
[facility] PROGRESS NOTE Date of Service: Jul 22, 2024 Time of Service: 10:[address] Cruz SUBJECTIVE: [ Mr. Garcia is an 79-year-old male with a history of hypertension, CAD, obstructive sleep apnea, COPD, O2 dependent usually on 3 L O2, chronic knee and back pain, AAA, and chronic bilateral lower extremity venous ulcers, chronic lower extremity cellulitis who presented to [facility] via EMS for evaluation of shortness of breath. According to EMS [facility]. The patient reported cough, congestion, and some mild difficulty breathing. Chest x-ray: Mild bilateral pulmonary infiltrates are seen may be related to mild pulmonary vascular congestion with possible superimposed pneumonitis. ABGs : PH 7.308, pCO2 60, PO2 72.5, bicarbonate 29.5, O2 sats 93. ED provider request patient be admitted to the hospital with a diagnosis of pneumonia, status dermatitis to bilateral lower extremities, and COPD exacer bation. 07/21 patient was seen by nurse practitioner and physician during rounding in room 302 lying in bed. Patient just underwent 2D echo and at this moment he is on 6 L nasal cannula. RT was called to place patient on a BiPAP due to most recent ABG gases abnormal results. We are pending further evaluation/recommendations of slope runner, ID and wound. Patient continues to be on levofloxacin methylprednisolone IV ipratropium and albuterol. We will continue to monitor patient in the meantime. A.m. labs. 07/22 patient was seen by nurse practitioner and physician during rounding in room 302. Patient is pending most recent ABG gases. Patient is refusing BiPAP and at this moment he is on 5 L nasal cannula. Per RN patient was on BiPAP yesterday all day but unfortunately in the evening he already declined BiPAP. 2D echo showed 55 to 60% EF. Venous Doppler and chest CT is pending. Per ID patient is on Zyvox and levofloxacin. Patient also is on Lasix 40 mg Q 8 hours. Methylprednisolone will discontinue patient was placed on prednisolone POA. Pulmonology and ID is following the patient. Patient stated he feels much better compared to the previous day. We will continue to monitor patient in the meantime. A.m. labs. PT working with the patient] REVIEW OF SYSTEMS 12-point ROS reviewed with patient. All pertinent positives mentioned above. Otherwise negative, noncontributory, or non-pertinent. PHYSICAL EXAM GENERAL APPEARANCE: The patient is awake, alert, and oriented, in no acute cardiopulmonary distress. NEUROLOGICAL: Cranial nerves II-XII grossly intact. Motor is 5/5 in bilateral upper and lower extremities proximal to distal. No sensory deficits. HEENT: Face is symmetric. Pupils are equal and reactive. Extraocular movements are intact. NECK: Supple. No JVD. No thyromegaly. No submental, submandibular, pre- /postauricular, occipital or supraclavicular lymphadenopathy. CHEST: Normal chest expansion. No Telemetry. LUNGS: Tachypneic, wheezing, and lungs sounded wet. Patient had a very productive cough, and was spitting phlegm into a napkin while the I assessed him. CARDIOVASCULAR: Regular. S1 and S2 normal. No appreciable rubs, murmurs or gallops. ABDOMEN: Soft, nontender, and nondistended. There is no rebound, voluntary guarding, or rigidity. : Deferred. No Ramirez. EXTREMITIES: Non-edematous and not cyanotic. No clubbing. Good capillary refill. SKIN: No skin breakdown. Vital Signs (last 8hr) Date Time Temp Pulse Resp B/P (MAP) Pulse Ox O2 Delivery O2 Flow Rate FiO2 07/22/24 08:06 97.7 76 19 112/54 88 Nasal Cannula 5.0 07/22/24 07:31 88 18 N/Cannula Low lpm 3.0 32 07/22/24 07:26 88 18 07/22/24 04:00 98.1 68 20 103/42 88 Nasal Cannula 5.0 LABS: Laboratory: Test 07/22/24 05:52 07/22/24 03:47 07/21/24 06:55 07/21/24 05:28 Range/Units Whole Blood Glucose 140 H 70-110 MG/DL White Blood Count 7.8 # 4.8-10.8 K/uL Red Blood Count 3.64 L 4.50-6.20 MIL/uL Hemoglobin 9.6 L 14.0-18.0 g/dL Hematocrit 32.6 L 42-54 % Mean Corpuscular Volume 89.6 79-99 fL Mean Corpuscular Hemoglobin 26.4 L 27.0-33.0 pg Mean Corpuscular Hemoglobin Concent 29.4 L 32.0-36.0 g/dL Red Cell Distribution Width 16.5 H 11.0-15.5 % Platelet Count 256 130-400 K/uL Mean Platelet Volume 9.3 7.5-10.5 fL Immature Granulocyte % (Auto) 0.6 0-1 % Neutrophils (%) (Auto) 80.2 H 40.0-77.0 % Lymphocytes (%) (Auto) 11.7 L 21.0-51.0 % Monocytes (%) (Auto) 7.2 3.0-13.0 % Eosinophils (%) (Auto) 0.0 0.0-8.0 % Basophils (%) (Auto) 0.3 0.0-5.0 % Neutrophils # (Auto) 6.3 1.8-7.7 K/uL Lymphocytes # (Auto) 0.9 L 1.0-4.8 K/uL Monocytes # (Auto) 0.6 0.1-1.0 K/uL Eosinophils # (Auto) 0.00 0.00-0.70 K/uL Basophils # (Auto) 0.02 0.00-0.20 K/uL Absolute Immature Granulocyte (auto 0.05 0-1 K/uL Nucleated Red Blood Cells 0.0 0.0-0.19 % Sodium Level 136 136-145 mmol/L Potassium Level 4.0 3.5-5.1 mmol/L Chloride Level 101 101-111 mmol/L Carbon Dioxide Level 30 21-32 mmol/L Blood Urea Nitrogen 26 H 7-18 mg/dL Creatinine 1.6 H 0.5-1.3 mg/dL Glomerular Filtration Rate Calc 43 >90 mL/min Random Glucose 162 H 70-105 mg/dL Total Calcium 8.1 L 8.5-10.1 mg/dL Magnesium Level 1.90 1.80-2.40 mg/dL Total Bilirubin 0.2 0.2-1.0 mg/dL Aspartate Amino Transf (AST/SGOT) 11 10-37 U/L Alanine Aminotransferase (ALT/SGPT) 18 12-78 U/L Alkaline Phosphatase 96 50-136 U/L Total Protein 6.4 6.0-8.3 g/dL Albumin 2.3 L 3.5-5.0 g/dL Blood Gas Specimen Type Arterial Arterial Blood pH 7.278 L 7.350-7.450 Arterial Blood Partial Pressure CO2 63 *H 35-48 mmHg Arterial Blood Partial Pressure O2 67.0 L 83.0-108.0 mmHg Arterial Blood HCO3 28.8 H 21.0-28.0 mmol/L Arterial Blood Oxygen Saturation 90.4 L 94.0-98.0 % Arterial Blood Base Excess 0.3 -2.0-3.0 mmol/L Blood Gas Temperature 37.0 35.5-37.0 CELSIUS Blood Gas Flow-by 5.00 0.00-15.00 L/min Blood Gas Vent Mode NC ROOM AIR FiO2 40.0 % Blood Gas Specimen Comment LR AVIS White Cell Morphology Comment See comments Phosphorus Level 3.6 2.5-4.9 mg/dL Thyroid Stimulating Hormone (TSH) 1.33 0.36-3.74 uIU/mL Test 07/20/24 21:13 07/20/24 21:05 07/20/24 18:34 07/20/24 18:17 Range/Units Urine Color YELLOW YELLOW Urine Appearance CLEAR CLEAR Urine pH 5.0 5.0-8.0 Urine Specific [place] 1.024 1.001-1.031 Urine Protein 10 H NEGATIVE mg/dL Urine Glucose (UA) NEGATIVE NEGATIVE mg/dL Urine Ketones 5 H NEGATIVE mg/dL Urine Occult Blood NEGATIVE NEGATIVE Urine Nitrate NEGATIVE NEGATIVE Urine Bilirubin NEGATIVE NEGATIVE mg/dL Urine Urobilinogen 0.2 0.2-1.0 mg/dL Urine Leukocyte Esterase 25 H NEGATIVE [place]/uL Urine RBC 0-1 0-1 /HPF Urine WBC 2-5 H 0-1 /HPF Urine Squamous Epithelial Cells RARE 0-2 /HPF Urine Bacteria RARE None Seen /HPF Influenza Type A Antigen Negative For Type A NEGATIVE Influenza Type B Antigen Negative For Type B NEGATIVE SARS-CoV-2, RNA, NAAT NEGATIVE SARS CoV-2 NEGATIVE Hemoglobin (Blood Gas) 11.3 L 13.5-17.5 g/dL Sodium (Blood Gas) 139 136-145 MMOL/L Bedside Potassium (Blood Gas) 3.9 3.4-4.5 MMOL/L Bedside Chloride (Blood Gas) 103 98-107 MMOL/L Bedside Glucose (Blood Gas) 103 H 65-95 MG/DL Bedside Ionized Calcium (Blood Gas) 1.13 L 1.15-1.33 MMOL/L Bedside Lactic Acid (Blood Gas) 1.14 H 0.36-0.75 MMOL/L Red Blood Cell Morphology See comments Lactic Acid Level 2.0 0.8-2.5 mmol/L Troponin I High Sensitivity 7 4-75 ng/L B-Type Natriuretic Peptide 100 0-100 pg/mL Procalcitonin < 0.05 L 0.05-0.5 ng/mL Current Medications Medications (Trade) Dose Ordered Sig/Viola Route PRN Reason Start Time Stop Time Status Last Admin Dose Admin Acetaminophen (TYLenol 325MG TAB) 650 mg Q6H PRN PO FEVER/MILD PAIN LEVEL 1-3 07/20/24 23:30 08/19/24 23:29 Acetaminophen (TYLenol 650MG SUPPOSITORY) 650 mg Q6H PRN RC FEVER / MILD PAIN 1-3 IF NPO 07/20/24 23:30 08/19/24 23:29 Acetylcysteine (MUComyst 20% 4ML) 400 mg [id number] IH 07/20/24 22:10 08/19/24 22:09 07/22/24 07:26 400 MG Albuterol Sulfate (Proventil 0.083% 2.5mg/3ml) 2.5 mg [id number] IH 07/20/24 22:00 08/19/24 21:59 07/22/24 07:26 2.5 MG Atorvastatin Calcium (LIPItor 40MG) 40 mg HS PO 07/21/24 21:00 08/20/24 20:59 07/21/24 20:54 40 MG Docusate Sodium (COLace 100MG CAP) 100 mg BID PRN PO c 07/20/24 23:30 08/19/24 23:29 07/22/24 08:27 100 MG Enoxaparin Sodium (Lovenox) 40 mg DAILY SQ 07/21/24 09:00 08/20/24 08:59 07/22/24 08:26 40 MG Furosemide (LASix 40MG VIAL) 40 mg Q8H IV 07/21/24 16:00 08/20/24 15:59 07/22/24 08:03 40 MG Guaifenesin (RobiTUSSin SUGAR-FREE 100 MG/ 5 ML UDCUP) 400 mg Q4H PRN PO COUGH/COLD SYMPTOMS 07/21/24 05:30 08/20/24 05:29 07/22/24 08:26 400 MG Home Med (Home Medication) Prazosin HCl 1 MG HS PO 07/21/24 21:00 08/20/24 20:59 Home Med (Home Medication) Ropinirole HCl 4 MG QIDP PRN PO LP 07/21/24 09:30 08/20/24 09:29 Home Med (Home Medication) Sertraline HCl 25 MG DAILY PO 07/22/24 09:00 07/21/24 09:25 DC Hydralazine HCl (APRESOLine 20MG INJ) 10 mg Q2H PRN IV SBP GREATER THAN 160 07/20/24 23:30 08/19/24 23:29 Insulin Human Regular (humuLIN R 100 UNIT/ML 3ML) INSULIN SLIDING SCAL... ACHS SQ 07/21/24 07:30 08/20/24 07:29 07/21/24 21:09 4 UNIT Ipratropium [place] (AtrovENT UD) 0.5 mg [id number] IH 07/20/24 22:00 08/19/24 21:59 07/22/24 07:26 0.5 MG Lactulose (Constulose 20gm/ 30ml Udcup) 20 gm Q6H PRN PO CONSTIPATION 07/20/24 23:30 08/19/24 23:29 Levofloxacin/ Dextrose 100 ml @ 100 mls/hr Q24H IV 07/21/24 21:00 07/31/24 20:59 07/21/24 23:58 100 MLS/HR Levofloxacin/ Dextrose 150 ml @ 100 mls/hr Q48H IV 07/22/24 21:00 07/21/24 13:56 DC Linezolid 300 ml @ 150 mls/hr Q12H IV 07/21/24 15:00 07/31/24 14:59 07/22/24 03:07 150 MLS/HR Magnesium Sulfate 50 ml @ 0 mls/hr PROTOCOL IV 07/21/24 05:00 08/20/24 04:59 07/22/24 08:28 25 MLS/HR Methylprednisolone Sodium Succinate (Solu-medROL 40MG) 60 mg Q6H IVP 07/21/24 15:00 07/21/24 15:49 DC Methylprednisolone Sodium Succinate (Solu-medROL 125MG) 60 mg Q6H IVP 07/21/24 03:00 07/21/24 13:27 DC 07/21/24 09:20 60 MG Metolazone (zarOXOlyn) 2.5 mg BID PO 07/21/24 21:00 08/20/24 20:59 07/22/24 08:26 2.5 MG Metolazone (zarOXOlyn) 5 mg Q2D PO 07/21/24 09:00 07/21/24 09:25 DC Mirtazapine (REMeron 15 MG TAB) 30 mg HS PO 07/21/24 21:00 08/20/24 20:59 07/21/24 20:54 30 MG Miscellaneous Medication (Simvastatin (Zocor)) 40 mg HS PO 07/21/24 21:00 07/21/24 08:54 DC Montelukast Sodium (SinguLAIR) 10 mg DAILY PO 07/21/24 09:00 08/20/24 08:59 07/22/24 08:26 10 MG Multivitamins Therapeutic (Multivitamin Tablet) 1 tab DAILY PO 07/22/24 09:00 08/21/24 08:59 07/22/24 08:26 1 TAB Nystatin (NystOP 15 GM POWDER) apply to abdominal fold TID TP 07/21/24 21:00 08/20/24 20:59 07/22/24 08:27 1 APPL Ondansetron HCl (zoFRAN 4MG TABLET) 4 mg Q6H PRN PO nausea 07/21/24 13:30 07/21/24 13:27 DC Ondansetron HCl (zoFRAN 4MG INJ) 4 mg Q6H PRN IVP NAUSEA/VOMITING 07/20/24 23:30 08/19/24 23:29 Prednisone (deltaSONE/ oraSONE 20MG TAB) 40 mg DAILY PO 07/22/24 09:00 07/25/24 08:59 07/22/24 08:26 40 MG Sodium Chloride 1,000 ml @ 75 mls/hr [id number] IV 07/22/24 10:30 07/23/24 10:29 Spironolactone (Aldactone 25mg) 25 mg DAILY PO 07/21/24 09:00 07/21/24 09:25 DC Tamsulosin HCl (FloMAX) 0.4 mg HS PO 07/21/24 21:00 08/20/24 20:59 07/21/24 20:54 0.4 MG Temazepam (restORIL 15 MG CAP) 15 mg HS PRN PO INSOMNIA/SLEEP 07/20/24 23:30 08/19/24 23:29 Tramadol HCl (UltRAM) 50 mg Q6H PRN PO PAIN LEVEL 7 TO 10 07/21/24 01:30 07/26/24 01:29 07/21/24 01:41 50 MG Venlafaxine HCl (EffEXOR 50 mg TAB) 150 mg DAILY PO 07/21/24 09:00 08/20/24 08:59 07/22/24 08:26 150 MG Wound Care/ Dressing Products (Venelex Ointment) 1 gm TID TP 07/21/24 21:00 08/20/24 20:59 07/22/24 08:27 1 GM DIAGNOSTICS / RADIOLOGY: [ ] ASSESSMENT: Acute hypoxemic hypercapnic respiratory failure, requiring BiPAP COPD exacerbation Acute complicated cystitis, POA Chronic bilateral lower extremity venous ulcers Acute on chronic lower extremity cellulitis Anemia of chronic disease Hypomagnesemia Hyperglycemia Obstructive sleep apnea Morbid obesity, BMI 41.1 Chronic problem list: HLP, BPH, anemia, chronic back and knee pain, PTSD, morbid obesity PLAN: -Admit to PCCU with continuous telemetry monitoring -Monitor respiratory status closely. -Start BiPAP, titrate oxygen prn to keep Spo2>/+=92%. -monitor ABGs and chest x-ray -Albuterol and Atrovent nebulizer treatments scheduled q.4 hours. -RT to provide IS and education on use. -Robitussin DM as needed cough. -Start montelukast 10 mg p.o. daily. -start Mucomyst 400 mg IH q.4 hours. -Solu-Medrol 60 mg IV q.6 hours -Consult pulmonology for acute hypoxemic and hypercapnic respiratory failure, COPD exacerbation. -Consult infectious disease for acute on chronic/ recurrent lower extremity cellulitis. -p.r.n. medications for: Pain management, fever, nausea, vomiting, constipation, hypertension -Glucometer checks AC & HS needed with insulin regular sliding scale coverage as needed. -Blood pressure checks every 4 hours and as needed. -AM labs: monitor renal and liver function, monitor electrolytes and replace PRN -GI and DVT prophylaxis ATTESTATION BY PHYSICIAN I have seen and examined the patient. I reviewed the documentation, medical decision making, and treatment plan as noted by the mid-level provider above. I agree with the findings and plan of care. Meg Cruz MD, [facility] Jul 22, 2024 10:22
[2024-07-22] MEDS: 0.9%NACL 1000ML 1,000 ML IV SCH (10:28)
[2024-07-22 11:00] LABS: ABG BASE EXCESS 4.9 mmol/L (-2.0-3.0); ABG OXYGEN SATURATION 89.4 % (94.0-98.0); ABG PCO2 57 mmHg (35-48); ABG PH 7.367 (7.350-7.450); DEVICE COMMENT LRNATALIA; PO2, ARTERIAL BG 59.4 mmHg (83.0-108.0); VENT MODE, BG NC (ROOM AIR)
--- NOTE | 2024-07-22 15:49 | HMCIMG ---
CT CHEST W/O CONTRAST HISTORY: Shortness of breath COMPARISON: 11/18/2022 TECHNIQUE: Multiple sequential axial images of the chest were obtained from the thoracic inlet through upper abdomen. Patient was not given contrast through intravenous route. FINDINGS: Tiny bilateral pleural effusions are seen. Mild bilateral pulmonary infiltrates are seen. A small hiatal hernia is seen. Fatty changes of the liver are noted. There is no evidence of pneumothorax. There are normal size mediastinal and hilar lymph nodes. The heart is not enlarged. Degenerative changes of the thoracolumbar spine are present. There is no evidence of adrenal nodule. IMPRESSION: 1. Tiny bilateral pleural effusions. Mild bilateral pulmonary infiltrates. CT was performed with one or more following dose reduction techniques: automated exposure control, adjustment of the mA and kv according to patient's size, or use of a iterative reconstruction technique.
--- NOTE | 2024-07-22 17:22 | PN ---
INFECTIOUS DISEASE FOLLOWUP NOTE DATE OF SERVICE: 07/22/2024 SUBJECTIVE: The patient is seen and examined at bedside today. The patient has no fever, no chills. No nausea, no vomiting. No bleeding tendency. No palpitation or orthopnea. Shortness of breath is better. The patient is now off BiPAP therapy. No dysuria or hematuria. PHYSICAL EXAMINATION: VITAL SIGNS: Temperature 97.6. EYES: No icterus. Pupils equal and reactive. HENT: No oral thrush seen. Moist oral mucosa. NECK: Supple, no JVD or thyromegaly. LUNGS: Good air entry. No rales, no rhonchi. CARDIOVASCULAR: S1, S2 regular. No murmur heard. ABDOMEN: Full, soft, nontender. Bowel sound is present. CENTRAL NERVOUS SYSTEM: Awake, alert and oriented x 3, bedbound debility. SKIN: No rashes, no itchiness. LYMPHATIC: Bilateral inguinal lymphadenopathy. BACK: No deformity, no pressure ulcer. EXTREMITIES: Small ulcer, blister and cellulitis involving both legs. ASSESSMENT: An 79-year-old male with multiple problems which include: * Bilateral leg ulcer. * Bilateral lower extremity cellulitis. * ____ hypoxic respiratory failure. * Morbid obesity. * Hypertension. * Medical noncompliance. PLAN: * Continue wound care. * Continue pain management. * Continue DVT prophylaxis. * Monitor electrolytes. * Continue levofloxacin. * Continue linezolid. * Continue DVT prophylaxis. TID: [id number] RECEIPT: [id number]
--- NOTE | 2024-07-22 20:10 | NUR ---
MEDS SHIFT ASSESSMENT DONE, PLEASE REFER TO CHART. DUE MEDS ADMINISTERED, TOLERATED WELL. KEPT RESTED AND COMFORTABLE IN BED WITH HOB ELEVATED. CALL LIGHT WITHIN REACH.
[2024-07-22] MEDS ORDERED: levoFLOXacin 750 MG/D5W 150 ML 150 ML IV SCH (21:00)
[2024-07-22] MEDS: TEMAZepam 15 MG CAPSULE PO PRN (21:11)
[2024-07-23] VITALS (16 sets, daily range): BP systolic 113–142; BP diastolic 55–94; PULSE 69–86; RESP 18–20; TEMP 97.3–97.8; O2SAT 93–97
[2024-07-23 03:46] LABS: BASOPHILS # (AUTO) 0.01 K/uL (0.00-0.20); BASOPHILS % (AUTO) 0.1 % (0.0-5.0); HEMATOCRIT 34.9 % (42-54); IMMATURE GRANULOCYTE ABSOLUTE 0.04 K/uL (0-1); LYMPHOCYTES # (AUTO) 1.1 K/uL (1.0-4.8); LYMPHOCYTES % (AUTO) 15.2 % (21.0-51.0); MEAN CORPUSCULAR HGB CONC 30.1 g/dL (32.0-36.0); MEAN CORPUSCULAR VOLUME 86.4 fL (79-99); MONOCYTES # (AUTO) 0.5 K/uL (0.1-1.0); MONOCYTES % (AUTO) 7.4 % (3.0-13.0); NEUTROPHILS # (AUTO) 5.6 K/uL (1.8-7.7); NEUTROPHILS % (AUTO) 76.8 % (40.0-77.0); PLATELET COUNT (AUTO) 276 K/uL (130-400); RED BLOOD CELL COUNT(AUTO) 4.04 MIL/uL (4.50-6.20); RED CELL DISTRIBUTION WIDTH 16.4 % (11.0-15.5); WHITE BLOOD COUNT (AUTO) 7.3 K/uL (4.8-10.8)
[2024-07-23 04:02] LABS: ALBUMIN 2.8 g/dL (3.5-5.0); BILIRUBIN,TOTAL 0.4 mg/dL (0.2-1.0); CREATININE 1.7 mg/dL (0.5-1.3); MAGNESIUM 1.9 mg/dL (1.80-2.40); POTASSIUM 3.5 mmol/L (3.5-5.1); TOTAL PROTEIN, SERUM 6.9 g/dL (6.0-8.3)
[2024-07-23 04:39] LABS: B-TYPE NATRIURETIC PEPTIDE 155 pg/mL (0-100)
--- NOTE | 2024-07-23 05:05 | NUR ---
ROUNDS PT RESTING WELL IN BED, WENT BACK TO SLEEP. KEPT UNDISTURBED FOR NOW. CALL LIGHT WITHIN REACH. FOR MORE CARE.
--- NOTE | 2024-07-23 09:10 | PN ---
[facility] PROGRESS NOTE Date Patient Seen: Jul 23, 2024 Time of Visit: 09:08 Supervising Physician: Dr. Millan Primary Care Physician: [[facility]] Outpatient Specialists: [ ] Inpatient Consults: [[facility]] PROBLEM LIST: Acute hypoxemic hypercapnic respiratory failure, requiring BiPAP Acute on chronic diastolic heart failure, POA- LVEF 55-60% Acute renal failure from ATN COPD exacerbation, POA Acute complicated cystitis, POA Chronic bilateral lower extremity venous ulcers Acute on chronic lower extremity cellulitis Anemia of chronic disease Hypomagnesemia Hyperglycemia Hyperlipidemia Benign prostate hyperplasia Post traumatic stress disorder Chronic back pain Obstructive sleep apnea Morbid obesity, BMI 41.1 Hx of DVT, R-popliteal vein 12/31/2023 Plan: Prednisone Order venous doppler Restrict fluid intake, daily weights, monitor I&O Pending repeat echocardiogram Continue levaquin for now adjust antibiotics as indicated Order sputum culture, follow blood culture result Other management per primary INTERVAL HISTORY: Patient is awake alert and oriented x3 no acute event overnight. Patient had been hypercapnic but can not tolerated BiPAP. We will repeat blood gas. Lab this morning with creatinine is up to 1.6 from 1.2. Potassium is 4.0 bicarb is 30. BUN is 26 patient likely is hypovolemic. We will give him IV fluids for today and repeat lab in the morning. Check MRSA swab. Continue antibiotic. Continue with prednisone. 07/23 patient is awake alert and oriented x3 no acute event overnight. Vital signs blood pressure 124/94 heart rate is 76 respiratory rate is 20. His T-max is 97.9 he remains on 5 L nasal cannula with saturation oxygen of 94%. Remarkable lab findings with creatinine up to 1.7 from 1.6, patient had voided 5.7 L with balance-3.5 L. we will hold Lasix given worsening renal function and contraction alkalosis with bicarbonate 39. We will complete NS today. Otherwise history repeat blood gas is steady pH 7.36, pCO2 57 bicarb is 32 PO2 is 59. Patient has been refusing BiPAP. continue antibiotic and nebulizer. He may be benefited from a trilogy. REVIEW OF SYSTEMS: 12 point ROS reviewed with patient. Pertinent positives mentioned above. Otherwise negative. PHYSICAL EXAM: GENERAL: alert, weak, awake oriented x 3 HEENT: EOMI, Sclera non icteric, moist mucosa NECK: Supple, no JVD, trachea midline LUNGS: Clear breath sounds bilaterally. No wheezes HEART: Regular rate and rhythm. Normal S1 and S2, without murmurs ABD: Abdomen soft, nontender. Bowel sounds present EXT: No clubbing cyanosis or edema NEURO: Alert and oriented to person, follows commands Vital Signs (last 8hr) Date Time Temp Pulse Resp B/P (MAP) Pulse Ox O2 Delivery O2 Flow Rate FiO2 07/23/24 08:00 97.3 76 20 124/94 94 07/23/24 07:31 72 18 07/23/24 04:00 97.9 70 18 133/65 90 Nasal Cannula 5.0 07/23/24 01:46 86 18 LABS: Hematology Labs: Test 07/23/24 03:39 Range/Units White Blood Count 7.3 4.8-10.8 K/uL Red Blood Count 4.04 L 4.50-6.20 MIL/uL Hemoglobin 10.5 L 14.0-18.0 g/dL Hematocrit 34.9 L 42-54 % Mean Corpuscular Volume 86.4 79-99 fL Mean Corpuscular Hemoglobin 26.0 L 27.0-33.0 pg Mean Corpuscular Hemoglobin Concent 30.1 L 32.0-36.0 g/dL Red Cell Distribution Width 16.4 H 11.0-15.5 % Platelet Count 276 130-400 K/uL Mean Platelet Volume 8.7 7.5-10.5 fL Immature Granulocyte % (Auto) 0.5 0-1 % Neutrophils (%) (Auto) 76.8 40.0-77.0 % Lymphocytes (%) (Auto) 15.2 L 21.0-51.0 % Monocytes (%) (Auto) 7.4 3.0-13.0 % Eosinophils (%) (Auto) 0.0 0.0-8.0 % Basophils (%) (Auto) 0.1 0.0-5.0 % Neutrophils # (Auto) 5.6 1.8-7.7 K/uL Lymphocytes # (Auto) 1.1 1.0-4.8 K/uL Monocytes # (Auto) 0.5 0.1-1.0 K/uL Eosinophils # (Auto) 0.00 0.00-0.70 K/uL Basophils # (Auto) 0.01 0.00-0.20 K/uL Absolute Immature Granulocyte (auto 0.04 0-1 K/uL Nucleated Red Blood Cells 0.0 0.0-0.19 % Chemistry Labs: Test 07/23/24 05:49 07/23/24 03:39 Range/Units Whole Blood Glucose 138 H 70-110 MG/DL Sodium Level 137 136-145 mmol/L Potassium Level 3.5 3.5-5.1 mmol/L Chloride Level 96 L 101-111 mmol/L Carbon Dioxide Level 39 H 21-32 mmol/L Blood Urea Nitrogen 35 H 7-18 mg/dL Creatinine 1.7 H 0.5-1.3 mg/dL Glomerular Filtration Rate Calc 40 >90 mL/min Random Glucose 108 H 70-105 mg/dL Total Calcium 8.7 8.5-10.1 mg/dL Magnesium Level 1.90 1.80-2.40 mg/dL Total Bilirubin 0.4 # 0.2-1.0 mg/dL Aspartate Amino Transf (AST/SGOT) 15 10-37 U/L Alanine Aminotransferase (ALT/SGPT) 20 12-78 U/L Alkaline Phosphatase 102 50-136 U/L B-Type Natriuretic Peptide 155 H 0-100 pg/mL Total Protein 6.9 6.0-8.3 g/dL Albumin 2.8 #L 3.5-5.0 g/dL DIAGNOSTICS / RADIOLOGY RESULTS: [ ] PLAN NEURO: Minimize central acting medications as possible. Maintain fall precautions, adequate lighting during the day PULMONARY: Supplemental 02 as needed. Maintain aspiration precautions at all times Home O2 NIPPV at night CARDIOVASCULAR: Follow hemodynamics. Vital signs per facility protocol GI & NUTRITION: Continue with nutritional support. Continue stool softeners and laxatives as needed. KIDNEYS & ELECTROLYTES: Strict monitoring of intake, output and overall fluid balance. Avoid nephrotoxic medications to the extent possible. Medications to be dosed according to renal function. Monitor electrolytes and replace as needed ENDOCRINE: Maintain blood glucose between 100-180 at all times. Hypoglycemia protocol in place INFECTIOUS DISEASE: Trend temperature, WBC and procalcitonin level Follow cultures, deescalate antibiotics as soon as possible. Panculture if new onset fever ONCOLOGY/HEMATOLOGY/COAGULATION: Monitor for s/s of bleeding Monitor hemoglobin, coagulation studies as needed SKIN: Pressure ulcer prevention per facility protocol Specialty mattress ORTHO/REHAB: Continue PT/OT Prophylaxis: Continue GI and DVT prophylaxis Code Status: Full Resuscitation Disposition: TBD Other: Total patient care time exceeds 35 minutes excluding all procedures. TAMELAMOIRALAMARYAN [facility] Jul 23, 2024 09:10
--- NOTE | 2024-07-23 09:51 | PN ---
INFECTIOUS DISEASE PROGRESS NOTE Date of Service: Jul 23, 2024 SUBJECTIVE: This is an 79-year-old male patient with past medical history of COPD with oxygen dependent and chronic bilateral lower extremities venous ulcers who was admitted to the hospital with chief complaint of shortness of breaths. Patient was seen and examined at bedside in room 302. Patient is awake, alert and oriented x3. Patient is sitting up on the edge of the bed. Patient continues with bilateral lower extremities erythema and edema. Patient stated that he is still drinking water even though he has been restricted fluid intake. Patient continues on diuretics. Nasal swab was positive for methicillin- resistant Staphylococcus aureus. No reports yet on the blood culture and sputum cultures result. Patient continues on levofloxacin and linezolid. Remains afebrile, temperature is 97.3 and a WBC of 7.3. We will continue to monitor patient's care. PHYSICAL EXAM EYES: Anicteric. Pupils equal and reactive. HENT: No oral thrush seen, moist Oral mucosa. NECK: Supple, no JVD or thyromegaly. LUNGS: Good air entry. no rhonchi. Crackles to bilateral upper lobes. Oxygen support. CARDIOVASCULAR: S1, S2 regular. No murmur heard. ABDOMEN: Soft, non tender, bowel sounds present, no organomegaly. CENTRAL NERVOUS SYSTEM: Awake, alert, oriented x 3. SKIN: No rashes, no swelling. Bilateral lower extremity erythema. LYMPHATICS: No peripheral lymphadenopathy. MUSCULOSKELETAL: No joint swelling, erythema or tenderness. EXTREMITIES: No cyanosis or clubbing. Bilateral lower extremity edema. BACK: No deformity, no pressure ulcer. GENITOURINARY: No dysuria or hematuria. Vital Sign (Last 12 Hours) 07/22/24 07/23/24 07/23/24 07/23/24 22:21 00:00 01:46 04:00 Temp 97.3 97.9 Pulse 80 84 86 70 Resp 18 18 18 18 B/P (MAP) 113/ 133/65 Pulse Ox 91 90 O2 Delivery Nasal Cannula Nasal Cannula O2 Flow Rate 5.0 5.0 07/23/24 07/23/24 07/23/24 07:31 08:00 08:30 Temp 97.3 Pulse 72 76 77 Resp 18 20 18 B/P (MAP) 124/94 Pulse Ox 94 O2 Delivery N/Cannula Low lpm O2 Flow Rate 3.0 FiO2 32 Intake & Output (last 24hrs) 07/22/24 07/22/24 07/23/24 15:00 23:00 07:00 Intake Total 800 ml 630.0 ml 762.0 ml Output Total 2350 ml 2250 ml 1100 ml Balance -1550 ml -1620.0 ml -338.0 ml LABS: Laboratory: Test 07/23/24 05:49 07/23/24 03:39 07/22/24 10:59 Range/Units Whole Blood Glucose 138 H 70-110 MG/DL White Blood Count 7.3 4.8-10.8 K/uL Red Blood Count 4.04 L 4.50-6.20 MIL/uL Hemoglobin 10.5 L 14.0-18.0 g/dL Hematocrit 34.9 L 42-54 % Mean Corpuscular Volume 86.4 79-99 fL Mean Corpuscular Hemoglobin 26.0 L 27.0-33.0 pg Mean Corpuscular Hemoglobin Concent 30.1 L 32.0-36.0 g/dL Red Cell Distribution Width 16.4 H 11.0-15.5 % Platelet Count 276 130-400 K/uL Mean Platelet Volume 8.7 7.5-10.5 fL Immature Granulocyte % (Auto) 0.5 0-1 % Neutrophils (%) (Auto) 76.8 40.0-77.0 % Lymphocytes (%) (Auto) 15.2 L 21.0-51.0 % Monocytes (%) (Auto) 7.4 3.0-13.0 % Eosinophils (%) (Auto) 0.0 0.0-8.0 % Basophils (%) (Auto) 0.1 0.0-5.0 % Neutrophils # (Auto) 5.6 1.8-7.7 K/uL Lymphocytes # (Auto) 1.1 1.0-4.8 K/uL Monocytes # (Auto) 0.5 0.1-1.0 K/uL Eosinophils # (Auto) 0.00 0.00-0.70 K/uL Basophils # (Auto) 0.01 0.00-0.20 K/uL Absolute Immature Granulocyte (auto 0.04 0-1 K/uL Nucleated Red Blood Cells 0.0 0.0-0.19 % Sodium Level 137 136-145 mmol/L Potassium Level 3.5 3.5-5.1 mmol/L Chloride Level 96 L 101-111 mmol/L Carbon Dioxide Level 39 H 21-32 mmol/L Blood Urea Nitrogen 35 H 7-18 mg/dL Creatinine 1.7 H 0.5-1.3 mg/dL Glomerular Filtration Rate Calc 40 >90 mL/min Random Glucose 108 H 70-105 mg/dL Total Calcium 8.7 8.5-10.1 mg/dL Magnesium Level 1.90 1.80-2.40 mg/dL Total Bilirubin 0.4 # 0.2-1.0 mg/dL Aspartate Amino Transf (AST/SGOT) 15 10-37 U/L Alanine Aminotransferase (ALT/SGPT) 20 12-78 U/L Alkaline Phosphatase 102 50-136 U/L B-Type Natriuretic Peptide 155 H 0-100 pg/mL Total Protein 6.9 6.0-8.3 g/dL Albumin 2.8 #L 3.5-5.0 g/dL Blood Gas Specimen Type Arterial Arterial Blood pH 7.367 7.350-7.450 Arterial Blood Partial Pressure CO2 57 H 35-48 mmHg Arterial Blood Partial Pressure O2 59.4 L 83.0-108.0 mmHg Arterial Blood HCO3 32.0 H 21.0-28.0 mmol/L Arterial Blood Oxygen Saturation 89.4 L 94.0-98.0 % Arterial Blood Base Excess 4.9 H -2.0-3.0 mmol/L Blood Gas Temperature 37.0 35.5-37.0 CELSIUS Blood Gas Flow-by 3.00 0.00-15.00 L/min Blood Gas Vent Mode NC ROOM AIR FiO2 32.0 % Blood Gas Specimen Comment LRNATALIA ASSESSMENT: Hypoxic respiratory failure. Pneumonia. Bilateral lower extremity cellulitis. Bilateral lower extremities chronic leg ulcers. Medical noncompliance. COPD with home O2 dependent. Morbid obesity. PLAN: Continue linezolid. Continue levofloxacin. Keep lower extremities Elevated. We will follow up on the cultures. Continue bronchodilators. Continue oxygen support. Continue diuretics as currently ordered. This case was reviewed and discussed with my supervising physician and the above assessment and plan was formulated and agreed upon. ATTESTATION BY PHYSICIAN I have seen and examined the patient. I reviewed the documentation, medical dec ision making, and treatment plan as noted by the mid-level provider above. I agree with the findings and plan of care. VERONICA KILPATRICK MD, MIRTA L [facility] Jul 23, 2024 09:51
--- NOTE | 2024-07-23 12:28 | PN ---
[facility] PROGRESS NOTE Date of Service: Jul 23, 2024 Time of Service: 12:25 SUBJECTIVE: [ Mr. Garcia is an 79-year-old male with a history of hypertension, CAD, obstructive sleep apnea, COPD, O2 dependent usually on 3 L O2, chronic knee and back pain, AAA, and chronic bilateral lower extremity venous ulcers, chronic lower extremity cellulitis who presented to [facility] ED via EMS for evaluation of shortness of breath. According to EMS [facility]. The patient reported cough, congestion, and some mild difficulty breathing. Chest x-ray: Mild bilateral pulmonary infiltrates are seen may be related to mild pulmonary vascular congestion with possible superimposed pneumonitis. ABGs : PH 7.308, pCO2 60, PO2 72.5, bicarbonate 29.5, O2 sats 93. ED provider request patient be admitted to the hospital with a diagnosis of pneumonia, status dermatitis to bilateral lower extremities, and COPD exacerbation. 07/21 patient was seen by nurse practitioner and physician during rounding in room 302 lying in bed. Patient just underwent 2D echo and at this moment he is on 6 L nasal cannula. RT was called to place patient on a BiPAP due to most recent ABG gases abnormal results. We are pending further evaluation/recommendations of hotel breakfast attendant, ID and wound. Patient continues to be on levofloxacin methylprednisolone IV ipratropium and albuterol. We will continue to monitor patient in the meantime. A.m. labs. 07/22 patient was seen by nurse practitioner and physician during rounding in room 302. Patient is pending most recent ABG gases. Patient is refusing BiPAP and at this moment he is on 5 L nasal cannula. Per RN patient was on BiPAP yesterday all day but unfortunately in the evening he already declined BiPAP. 2D echo showed 55 to 60% EF. Venous Doppler and chest CT is pending. Per ID patient is on Zyvox and levofloxacin. Patient also is on Lasix 40 mg Q 8 hours. Methylprednisolone will discontinue patient was placed on prednisolone POA. Pulmonology and ID is following the patient. Patient stated he feels much better compared to the previous day. We will continue to monitor patient in the meantime. A.m. labs. PT working with the patient] 07/23 patient has been evaluated in room 302, he continues with3 L oxygen supplementation with nasal cannula, saturating at 95%. I reviewed imaging CT c hest showed tiny bilateral pleural effusion mild pulmonary infiltrates bilaterally. Apparently patient is refusing BiPAP. Educational Administrator indicated that he will probably benefit to trilogy. At this point, patient will continue with IV antibiotics respiratory culture came back Gram-negative rods. Patient also has MRSA to the nares. Patient continues with prednisone 40 mg p.o. daily and Levaquin IV. REVIEW OF SYSTEMS 12-point ROS reviewed with patient. All pertinent positives mentioned above. Otherwise negative, noncontributory, or non-pertinent. PHYSICAL EXAM GENERAL APPEARANCE: The patient is awake, alert, and oriented, in no acute cardiopulmonary distress. NEUROLOGICAL: Cranial nerves II-XII grossly intact. Motor is 5/5 in bilateral upper and lower extremities proximal to distal. No sensory deficits. HEENT: Face is symmetric. Pupils are equal and reactive. Extraocular movements are intact. NECK: Supple. No JVD. No thyromegaly. No submental, submandibular, pre- /postauricular, occipital or supraclavicular lymphadenopathy. CHEST: Normal chest expansion. No Telemetry. LUNGS: Tachypneic, wheezing, and lungs sounded wet. Patient had a very productive cough, and was spitting phlegm into a napkin while the I assessed him. CARDIOVASCULAR: Regular. S1 and S2 normal. No appreciable rubs, murmurs or gallops. ABDOMEN: Soft, nontender, and nondistended. There is no rebound, voluntary guarding, or rigidity. : Deferred. No Ramirez. EXTREMITIES: Non-edematous and not cyanotic. No clubbing. Good capillary refill. SKIN: No skin breakdown. Vital Signs (last 8hr) Date Time Temp Pulse Resp B/P (MAP) Pulse Ox O2 Delivery O2 Flow Rate FiO2 07/23/24 12:00 97.9 69 20 113/59 95 07/23/24 10:44 70 18 07/23/24 08:30 77 18 N/Cannula Low lpm 3.0 32 07/23/24 08:00 97.3 76 20 124/94 94 07/23/24 07:31 72 18 LABS: Laboratory: Test 07/23/24 11:03 07/23/24 03:39 07/22/24 10:59 Range/Units Whole Blood Glucose 97 70-110 MG/DL White Blood Count 7.3 4.8-10.8 K/uL Red Blood Count 4.04 L 4.50-6.20 MIL/uL Hemoglobin 10.5 L 14.0-18.0 g/dL Hematocrit 34.9 L 42-54 % Mean Corpuscular Volume 86.4 79-99 fL Mean Corpuscular Hemoglobin 26.0 L 27.0-33.0 pg Mean Corpuscular Hemoglobin Concent 30.1 L 32.0-36.0 g/dL Red Cell Distribution Width 16.4 H 11.0-15.5 % Platelet Count 276 130-400 K/uL Mean Platelet Volume 8.7 7.5-10.5 fL Immature Granulocyte % (Auto) 0.5 0-1 % Neutrophils (%) (Auto) 76.8 40.0-77.0 % Lymphocytes (%) (Auto) 15.2 L 21.0-51.0 % Monocytes (%) (Auto) 7.4 3.0-13.0 % Eosinophils (%) (Auto) 0.0 0.0-8.0 % Basophils (%) (Auto) 0.1 0.0-5.0 % Neutrophils # (Auto) 5.6 1.8-7.7 K/uL Lymphocytes # (Auto) 1.1 1.0-4.8 K/uL Monocytes # (Auto) 0.5 0.1-1.0 K/uL Eosinophils # (Auto) 0.00 0.00-0.70 K/uL Basophils # (Auto) 0.01 0.00-0.20 K/uL Absolute Immature Granulocyte (auto 0.04 0-1 K/uL Nucleated Red Blood Cells 0.0 0.0-0.19 % Sodium Level 137 136-145 mmol/L Potassium Level 3.5 3.5-5.1 mmol/L Chloride Level 96 L 101-111 mmol/L Carbon Dioxide Level 39 H 21-32 mmol/L Blood Urea Nitrogen 35 H 7-18 mg/dL Creatinine 1.7 H 0.5-1.3 mg/dL Glomerular Filtration Rate Calc 40 >90 mL/min Random Glucose 108 H 70-105 mg/dL Total Calcium 8.7 8.5-10.1 mg/dL Magnesium Level 1.90 1.80-2.40 mg/dL Total Bilirubin 0.4 # 0.2-1.0 mg/dL Aspartate Amino Transf (AST/SGOT) 15 10-37 U/L Alanine Aminotransferase (ALT/SGPT) 20 12-78 U/L Alkaline Phosphatase 102 50-136 U/L B-Type Natriuretic Peptide 155 H 0-100 pg/mL Total Protein 6.9 6.0-8.3 g/dL Albumin 2.8 #L 3.5-5.0 g/dL Blood Gas Specimen Type Arterial Arterial Blood pH 7.367 7.350-7.450 Arterial Blood Partial Pressure CO2 57 H 35-48 mmHg Arterial Blood Partial Pressure O2 59.4 L 83.0-108.0 mmHg Arterial Blood HCO3 32.0 H 21.0-28.0 mmol/L Arterial Blood Oxygen Saturation 89.4 L 94.0-98.0 % Arterial Blood Base Excess 4.9 H -2.0-3.0 mmol/L Blood Gas Temperature 37.0 35.5-37.0 CELSIUS Blood Gas Flow-by 3.00 0.00-15.00 L/min Blood Gas Vent Mode NC ROOM AIR FiO2 32.0 % Blood Gas Specimen Comment LRNATALIA Current Medications Medications (Trade) Dose Ordered Sig/Viola Route PRN Reason Start Time Stop Time Status Last Admin Dose Admin Acetaminophen (TYLenol 325MG TAB) 650 mg Q6H PRN PO FEVER/MILD PAIN LEVEL 1-3 07/20/24 23:30 08/19/24 23:29 Acetaminophen (TYLenol 650MG SUPPOSITORY) 650 mg Q6H PRN RC FEVER / MILD PAIN 1-3 IF NPO 07/20/24 23:30 08/19/24 23:29 Acetylcysteine (MUComyst 20% 4ML) 400 mg [id number] 07/20/24 22:10 08/19/24 22:09 07/23/24 10:44 400 MG Albuterol Sulfate (Proventil 0.083% 2.5mg/3ml) 2.5 mg [id number] IH 07/20/24 22:00 08/19/24 21:59 07/23/24 10:44 2.5 MG Atorvastatin Calcium (LIPItor 40MG) 40 mg HS PO 07/21/24 21:00 08/20/24 20:59 07/22/24 20:08 40 MG Docusate Sodium (COLace 100MG CAP) 100 mg BID PRN PO c 07/20/24 23:30 08/19/24 23:29 07/22/24 08:27 100 MG Enoxaparin Sodium (Lovenox) 40 mg DAILY SQ 07/21/24 09:00 08/20/24 08:59 07/23/24 09:34 40 MG Furosemide (LASix 40MG VIAL) 40 mg Q8H IV 07/21/24 16:00 07/23/24 09:05 DC 07/22/24 23:36 40 MG Guaifenesin (RobiTUSSin SUGAR-FREE 100 MG/ 5 ML UDCUP) 400 mg Q4H PRN PO COUGH/COLD SYMPTOMS 07/21/24 05:30 08/20/24 05:29 07/22/24 21:12 400 MG Home Med (Home Medication) Prazosin HCl 1 MG HS PO 07/21/24 21:00 08/20/24 20:59 Home Med (Home Medication) Ropinirole HCl 4 MG QIDP PRN PO LP 07/21/24 09:30 08/20/24 09:29 Home Med (Home Medication) Sertraline HCl 25 MG DAILY PO 07/22/24 09:00 07/21/24 09:25 DC Hydralazine HCl (APRESOLine 20MG INJ) 10 mg Q2H PRN IV SBP GREATER THAN 160 07/20/24 23:30 08/19/24 23:29 Insulin Human Regular (humuLIN R 100 UNIT/ML 3ML) INSULIN SLIDING SCAL... ACHS SQ 07/21/24 07:30 08/20/24 07:29 07/21/24 21:09 4 UNIT Ipratropium [place] (AtrovENT UD) 0.5 mg [id number] IH 07/20/24 22:00 08/19/24 21:59 07/23/24 10:44 0.5 MG Lactulose (Constulose 20gm/ 30ml Udcup) 20 gm Q6H PRN PO CONSTIPATION 07/20/24 23:30 08/19/24 23:29 Levofloxacin/ Dextrose 100 ml @ 100 mls/hr Q24H IV 07/21/24 21:00 07/31/24 20:59 07/22/24 20:07 100 MLS/HR Levofloxacin/ Dextrose 150 ml @ 100 mls/hr Q48H IV 07/22/24 21:00 07/21/24 13:56 DC Linezolid 300 ml @ 150 mls/hr Q12H IV 07/21/24 15:00 07/31/24 14:59 07/23/24 02:41 150 MLS/HR Magnesium Sulfate 50 ml @ 0 mls/hr PROTOCOL IV 07/21/24 05:00 08/20/24 04:59 07/23/24 06:22 25 MLS/HR Methylprednisolone Sodium Succinate (Solu-medROL 40MG) 60 mg Q6H IVP 07/21/24 15:00 07/21/24 15:49 DC Methylprednisolone Sodium Succinate (Solu-medROL 125MG) 60 mg Q6H IVP 07/21/24 03:00 07/21/24 13:27 DC 07/21/24 09:20 60 MG Metolazone (zarOXOlyn) 2.5 mg BID PO 07/21/24 21:00 08/20/24 20:59 07/23/24 09:34 2.5 MG Metolazone (zarOXOlyn) 5 mg Q2D PO 07/21/24 09:00 07/21/24 09:25 DC Mirtazapine (REMeron 15 MG TAB) 30 mg HS PO 07/21/24 21:00 08/20/24 20:59 07/22/24 20:08 30 MG Miscellaneous Medication (Simvastatin (Zocor)) 40 mg HS PO 07/21/24 21:00 07/21/24 08:54 DC Montelukast Sodium (SinguLAIR) 10 mg DAILY PO 07/21/24 09:00 08/20/24 08:59 07/23/24 09:33 10 MG Multivitamins Therapeutic (Multivitamin Tablet) 1 tab DAILY PO 07/22/24 09:00 08/21/24 08:59 07/23/24 09:34 1 TAB Nystatin (NystOP 15 GM POWDER) apply to abdominal fold TID TP 07/21/24 21:00 08/20/24 20:59 07/23/24 09:35 1 APPL Ondansetron HCl (zoFRAN 4MG TABLET) 4 mg Q6H PRN PO nausea 07/21/24 13:30 07/21/24 13:27 DC Ondansetron HCl (zoFRAN 4MG INJ) 4 mg Q6H PRN IVP NAUSEA/VOMITING 07/20/24 23:30 08/19/24 23:29 Prednisone (deltaSONE/ oraSONE 20MG TAB) 40 mg DAILY PO 07/22/24 09:00 07/25/24 08:59 07/23/24 09:34 40 MG Sodium Chloride 1,000 ml @ 75 mls/hr [id number] IV 07/22/24 10:30 07/23/24 10:29 DC 07/22/24 10:28 75 MLS/HR Spironolactone (Aldactone 25mg) 25 mg DAILY PO 07/21/24 09:00 07/21/24 09:25 DC Tamsulosin HCl (FloMAX) 0.4 mg HS PO 07/21/24 21:00 08/20/24 20:59 07/22/24 20:08 0.4 MG Temazepam (restORIL 15 MG CAP) 15 mg HS PRN PO INSOMNIA/SLEEP 07/20/24 23:30 08/19/24 23:29 07/22/24 21:11 15 MG Tramadol HCl (UltRAM) 50 mg Q6H PRN PO PAIN LEVEL 7 TO 10 07/21/24 01:30 07/26/24 01:29 07/22/24 21:11 50 MG Venlafaxine HCl (EffEXOR 50 mg TAB) 150 mg DAILY PO 07/21/24 09:00 08/20/24 08:59 07/23/24 09:34 150 MG Wound Care/ Dressing Products (Venelex Ointment) 1 gm TID TP 07/21/24 21:00 08/20/24 20:59 07/23/24 09:35 1 GM DIAGNOSTICS / RADIOLOGY: [ ] ASSESSMENT: Acute hypoxemic hypercapnic respiratory failure, requiring BiPAP COPD exacerbation Acute complicated cystitis, POA Chronic bilateral lower extremity venous ulcers Acute on chronic lower extremity cellulitis Anemia of chronic disease Hypomagnesemia Hyperglycemia Obstructive sleep apnea Morbid obesity, BMI 41.1 Chronic problem list: HLP, BPH, anemia, chronic back and knee pain, PTSD, morbid obesity PLAN: -Admit to PCCU with continuous telemetry monitoring -Monitor respiratory status closely, continue with3 L nasal cannula -continue BiPAP, titrate oxygen prn to keep Spo2>/+=92%. -monitor ABGs and chest x-ray -Albuterol and Atrovent nebulizer treatments scheduled q.4 hours. -RT to provide IS and education on use. -Robitussin DM as needed cough. -Start montelukast 10 mg p.o. daily. -start Mucomyst 400 mg IH q.4 hours. -patient will continue with steroid currently on prednisone 40 mg p.o. daily -appreciate recommendations from hotel breakfast attendant we will continue to follow -appreciate ID recommendation we will continue with IV antibiotic -p.r.n. medications for: Pain management, fever, nausea, vomiting, constipation, hypertension -Glucometer checks AC & HS needed with insulin regular sliding scale coverage as needed. -Blood pressure checks every 4 hours and as needed. -AM labs: monitor renal and liver function, monitor electrolytes and replace PRN -GI and DVT prophylaxis Case was seen and examined with Dr. Cruz, above plan was formulated ATTESTATION BY PHYSICIAN I have seen and examined the patient. I reviewed the documentation, medical decision making, and treatment plan as noted by the mid-level provider above. I agree with the findings and plan of care. Meg Cruz MD, [facility] Jul 23, 2024 12:28
[2024-07-23 12:38] LABS: CREATININE 1.6 mg/dL (0.5-1.3); POTASSIUM 3.4 mmol/L (3.5-5.1)
[2024-07-23] MEDS: BALSAM PERU/CASTOR OIL 60 GM TUBE TP SCH (14:00)
--- NOTE | 2024-07-23 19:45 | NUR ---
MEDS SHIFT ASSESSMENT DONE, PLEASE REFER TO CHART. DUE MEDS ADMINISTERED, TOLERATED WELL. KEPT RESTED AND COMFORTABLE IN BED WITH HOB ELEVATED. REITERATED FLUID RESTRICTIONS PT IS NON-COMPLAINT. CALL LIGHT WITHIN REACH.
[2024-07-24] VITALS (14 sets, daily range): BP systolic 114–139; BP diastolic 53–70; PULSE 69–99; RESP 18–20; TEMP 97.4–98.4; O2SAT 90–97
[2024-07-24 04:58] LABS: HEMATOCRIT 35.5 % (42-54); MEAN CORPUSCULAR HEMOGLOBIN 26.1 pg (27.0-33.0); MEAN CORPUSCULAR HGB CONC 29.9 g/dL (32.0-36.0); MEAN CORPUSCULAR VOLUME 87.4 fL (79-99); RED BLOOD CELL COUNT(AUTO) 4.06 MIL/uL (4.50-6.20); RED CELL DISTRIBUTION WIDTH 16.4 % (11.0-15.5)
[2024-07-24 05:12] LABS: CREATININE 1.4 mg/dL (0.5-1.3); MAGNESIUM 2.1 mg/dL (1.80-2.40); POTASSIUM 3.6 mmol/L (3.5-5.1)
--- NOTE | 2024-07-24 05:25 | NUR ---
ROUNDS PT RESTING, FAIRLY ASLEEP AT THIS TIME. NO DISTRESS NOTED. KEPT UNDISTURBED FOR NOW. SALINE LOCKED PIV, PATENT. FOR MORE CARE.
--- NOTE | 2024-07-24 09:20 | PN ---
[facility] PROGRESS NOTE Date Patient Seen: Jul 24, 2024 Time of Visit: 09:17 Supervising Physician: Dr. Gautam Millan Primary Care Physician: [[facility]] Outpatient Specialists: [ ] Inpatient Consults: [[facility]] PROBLEM LIST: Acute hypoxemic hypercapnic respiratory failure, requiring BiPAP MDRO multifocal pneumonia- POA- positive for MRSA on nasal swab, sputum cultures with Klebsiella, proteus, and ESBL Acute on chronic diastolic heart failure, POA- LVEF 55-60% Acute renal failure from ATN COPD exacerbation, POA Acute complicated cystitis, POA Chronic bilateral lower extremity venous ulcers Acute on chronic lower extremity cellulitis Anemia of chronic disease Hypomagnesemia Hyperglycemia Hyperlipidemia Benign prostate hyperplasia Post traumatic stress disorder Chronic back pain Obstructive sleep apnea Morbid obesity, BMI 41.1 Hx of DVT, R-popliteal vein 12/31/2023 Plan: Prednisone Order venous doppler negative Restrict fluid intake, daily weights, monitor I&O Echo with diastolic dysfunction Adjust antibiotics for MDRO. ID is following. Order sputum culture, follow blood culture result Other management per primary INTERVAL HISTORY: Patient is awake alert and oriented x3 no acute event overnight. Patient had been hypercapnic but can not tolerated BiPAP. We will repeat blood gas. Lab this morning with creatinine is up to 1.6 from 1.2. Potassium is 4.0 bicarb is 30. BUN is 26 patient likely is hypovolemic. We will give him IV fluids for today and repeat lab in the morning. Check MRSA swab. Continue antibiotic. Continue with prednisone. 07/23 patient is awake alert and oriented x3 no acute event overnight. Vital signs blood pressure 124/94 heart rate is 76 respiratory rate is 20. His T-max is 97.9 he remains on 5 L nasal cannula with saturation oxygen of 94%. Alizaar kable lab findings with creatinine up to 1.7 from 1.6, patient had voided 5.7 L with balance-3.5 L. we will hold Lasix given worsening renal function and contraction alkalosis with bicarbonate 39. We will complete NS today. Otherwise history repeat blood gas is steady pH 7.36, pCO2 57 bicarb is 32 PO2 is 59. Patient has been refusing BiPAP. continue antibiotic and nebulizer. He may be benefited from a trilogy. 07/24 patient is awake alert oriented X 3. no acute event overnight. Vital signs blood pressure 136/70 heart rate is 76 T-max 98.1. He is on 1 L of oxygen support 93%. Obtain chest x-ray this morning. We had discontinued the IV fluid yesterday and he put out 3.7 L of urine output with balance-2.2 L. culture of the sputum is growing Klebsiella, Proteus mirabilis, and positive MRSA. Continue with Zyvox for discontinue Levaquin. Start patient on meropenem. We will have case management to arrange for snf for antibiotic. REVIEW OF SYSTEMS: 12 point ROS reviewed with patient. Pertinent positives mentioned above. Otherwise negative. PHYSICAL EXAM: GENERAL: alert, weak, awake oriented x 3 HEENT: EOMI, Sclera non icteric, moist mucosa NECK: Supple, no JVD, trachea midline LUNGS: Clear breath sounds bilaterally. No wheezes HEART: Regular rate and rhythm. Normal S1 and S2, without murmurs ABD: Abdomen soft, nontender. Bowel sounds present EXT: No clubbing cyanosis or edema NEURO: Alert and oriented to person, follows commands Vital Signs (last 8hr) Date Time Temp Pulse Resp B/P (MAP) Pulse Ox O2 Delivery O2 Flow Rate FiO2 07/24/24 08:00 98.1 76 18 136/70 93 Nasal Cannula 1.0 07/24/24 07:21 72 18 N/Cannula Low lpm 3.0 32 07/24/24 07:21 72 18 07/24/24 04:00 97.9 69 20 114/53 92 Nasal Cannula 5.0 07/24/24 02:09 73 18 LABS: Hematology Labs: Test 07/24/24 04:44 07/23/24 03:39 Range/Units White Blood Count 7.0 4.8-10.8 K/uL Red Blood Count 4.06 L 4.50-6.20 MIL/uL Hemoglobin 10.6 L 14.0-18.0 g/dL Hematocrit 35.5 L 42-54 % Mean Corpuscular Volume 87.4 79-99 fL Mean Corpuscular Hemoglobin 26.1 L 27.0-33.0 pg Mean Corpuscular Hemoglobin Concent 29.9 L 32.0-36.0 g/dL Red Cell Distribution Width 16.4 H 11.0-15.5 % Platelet Count 278 130-400 K/uL Mean Platelet Volume 8.6 7.5-10.5 fL Nucleated Red Blood Cells 0.0 0.0-0.19 % Immature Granulocyte % (Auto) 0.5 0-1 % Neutrophils (%) (Auto) 76.8 40.0-77.0 % Lymphocytes (%) (Auto) 15.2 L 21.0-51.0 % Monocytes (%) (Auto) 7.4 3.0-13.0 % Eosinophils (%) (Auto) 0.0 0.0-8.0 % Basophils (%) (Auto) 0.1 0.0-5.0 % Neutrophils # (Auto) 5.6 1.8-7.7 K/uL Lymphocytes # (Auto) 1.1 1.0-4.8 K/uL Monocytes # (Auto) 0.5 0.1-1.0 K/uL Eosinophils # (Auto) 0.00 0.00-0.70 K/uL Basophils # (Auto) 0.01 0.00-0.20 K/uL Absolute Immature Granulocyte (auto 0.04 0-1 K/uL Chemistry Labs: Test 07/24/24 05:36 07/24/24 04:44 07/23/24 03:39 Range/Units Whole Blood Glucose 95 70-110 MG/DL Sodium Level 140 136-145 mmol/L Potassium Level 3.6 3.5-5.1 mmol/L Chloride Level 98 L 101-111 mmol/L Carbon Dioxide Level 38 H 21-32 mmol/L Blood Urea Nitrogen 30 H 7-18 mg/dL Creatinine 1.4 H 0.5-1.3 mg/dL Glomerular Filtration Rate Calc 51 >90 mL/min Random Glucose 97 70-105 mg/dL Total Calcium 8.5 8.5-10.1 mg/dL Magnesium Level 2.10 1.80-2.40 mg/dL Total Bilirubin 0.4 # 0.2-1.0 mg/dL Aspartate Amino Transf (AST/SGOT) 15 10-37 U/L Alanine Aminotransferase (ALT/SGPT) 20 12-78 U/L Alkaline Phosphatase 102 50-136 U/L B-Type Natriuretic Peptide 155 H 0-100 pg/mL Total Protein 6.9 6.0-8.3 g/dL Albumin 2.8 #L 3.5-5.0 g/dL DIAGNOSTICS / RADIOLOGY RESULTS: [ ] PLAN NEURO: Minimize central acting medications as possible. Maintain fall precautions, adequate lighting during the day PULMONARY: Supplemental 02 as needed. Maintain aspiration precautions at all times Home O2 NIPPV at night CARDIOVASCULAR: Follow hemodynamics. Vital signs per facility protocol GI & NUTRITION: Continue with nutritional support. Continue stool softeners and laxatives as needed. KIDNEYS & ELECTROLYTES: Strict monitoring of intake, output and overall fluid balance. Avoid nephrotoxic medications to the extent possible. Medications to be dosed according to renal function. Monitor electrolytes and replace as needed ENDOCRINE: Maintain blood glucose between 100-180 at all times. Hypoglycemia protocol in place INFECTIOUS DISEASE: Trend temperature, WBC and procalcitonin level Follow cultures, deescalate antibiotics as soon as possible. Panculture if new onset fever ONCOLOGY/HEMATOLOGY/COAGULATION: Monitor for s/s of bleeding Monitor hemoglobin, coagulation studies as needed SKIN: Pressure ulcer prevention per facility protocol Specialty mattress ORTHO/REHAB: Continue PT/OT Prophylaxis: Continue GI and DVT prophylaxis Code Status: Full Resuscitation Disposition: TBD Other: Total patient care time exceeds 35 minutes excluding all procedures. BELEN BRAY [facility] Jul 24, 2024 09:20
[2024-07-24] MEDS ORDERED: MEROPENEM 1 GM in 0.9%NACL 100ML 100 ML IVPB SCH (09:30)
--- NOTE | 2024-07-24 09:48 | HMCIMG ---
CHEST 1VW HISTORY: Pneumonia COMPARISON: None FINDINGS: A frontal projection of the chest was obtained. Mild bilateral pulmonary infiltrates are seen may be related to mild pulmonary vascular congestion with possible superimposed pneumonitis. The heart is borderline enlarged. Degenerative changes are seen. Aortic calcifications are seen. IMPRESSION: 1. Mild bilateral pulmonary infiltrates are seen may be related to mild pulmonary vascular congestion with possible superimposed pneumonitis.
--- NOTE | 2024-07-24 10:53 | PN ---
[facility] PROGRESS NOTE Date of Service: Jul 24, 2024 Time of Service: 10:51 SUBJECTIVE: [ Mr. Garcia is an 79-year-old male with a history of hypertension, CAD, obstructive sleep apnea, COPD, O2 dependent usually on 3 L O2, chronic knee and back pain, AAA, and chronic bilateral lower extremity venous ulcers, chronic lower extremity cellulitis who presented to [facility] via EMS for evaluation of shortness of breath. According to EMS [facility]. The patient reported cough, congestion, and some mild difficulty breathing. Chest x-ray: Mild bilateral pulmonary infiltrates are seen may be related to mild pulmonary vascular congestion with possible superimposed pneumonitis. ABGs : PH 7.308, pCO2 60, PO2 72.5, bicarbonate 29.5, O2 sats 93. ED provider request patient be admitted to the hospital with a diagnosis of pneumonia, status dermatitis to bilateral lower extremities, and COPD exacerbation. 07/21 patient was seen by nurse practitioner and physician during rounding in room 302 lying in bed. Patient just underwent 2D echo and at this moment he is on 6 L nasal cannula. RT was called to place patient on a BiPAP due to most recent ABG gases abnormal results. We are pending further evaluation/recommendations of contract administration manager, ID and wound. Patient continues to be on levofloxacin methylprednisolone IV ipratropium and albuterol. We will continue to monitor patient in the meantime. A.m. labs. 07/22 patient was seen by nurse practitioner and physician during rounding in room 302. Patient is pending most recent ABG gases. Patient is refusing BiPAP and at this moment he is on 5 L nasal cannula. Per RN patient was on BiPAP yesterday all day but unfortunately in the evening he already declined BiPAP. 2D echo showed 55 to 60% EF. Venous Doppler and chest CT is pending. Per ID patient is on Zyvox and levofloxacin. Patient also is on Lasix 40 mg Q 8 hours. Methylprednisolone will discontinue patient was placed on prednisolone POA. Pulmonology and ID is following the patient. Patient stated he feels much better compared to the previous day. We will continue to monitor patient in the meantime. A.m. labs. PT working with the patient] 07/23 patient has been evaluated in room 302, he continues with3 L oxygen supplementation with nasal cannula, saturating at 95%. I reviewed imaging CT c hest showed tiny bilateral pleural effusion mild pulmonary infiltrates bilaterally. Apparently patient is refusing BiPAP. Patient Intake Representative indicated that he will probably benefit to trilogy. At this point, patient will continue with IV antibiotics respiratory culture came back Gram-negative rods. Patient also has MRSA to the nares. Patient continues with prednisone 40 mg p.o. daily and Levaquin IV. 07/24 patient was evaluated in the room. He continues with oxygen supplementation at 3 L. Patient is back at baseline. Patient did mention that he still feels very weak unable to ambulate. He would like to go to a correction facility to continue with rehabilitation. We will be consulting case management and physical therapist to eval. REVIEW OF SYSTEMS 12-point ROS reviewed with patient. All pertinent positives mentioned above. Otherwise negative, noncontributory, or non-pertinent. PHYSICAL EXAM GENERAL APPEARANCE: The patient is awake, alert, and oriented, in no acute cardiopulmonary distress. NEUROLOGICAL: Cranial nerves II-XII grossly intact. Motor is 5/5 in bilateral upper and lower extremities proximal to distal. No sensory deficits. HEENT: Face is symmetric. Pupils are equal and reactive. Extraocular movements are intact. NECK: Supple. No JVD. No thyromegaly. No submental, submandibular, pre-/p ostauricular, occipital or supraclavicular lymphadenopathy. CHEST: Normal chest expansion. No Telemetry. LUNGS: Tachypneic, wheezing, and lungs sounded wet. Patient had a very productive cough, and was spitting phlegm into a napkin while the I assessed him. CARDIOVASCULAR: Regular. S1 and S2 normal. No appreciable rubs, murmurs or gallops. ABDOMEN: Soft, nontender, and nondistended. There is no rebound, voluntary guarding, or rigidity. : Deferred. No Ramirez. EXTREMITIES: Non-edematous and not cyanotic. No clubbing. Good capillary refill. SKIN: No skin breakdown. Vital Signs (last 8hr) Date Time Temp Pulse Resp B/P (MAP) Pulse Ox O2 Delivery O2 Flow Rate FiO2 07/24/24 10:26 75 18 N/Cannula Low lpm 3.0 32 07/24/24 08:00 98.1 76 18 136/70 93 Nasal Cannula 1.0 07/24/24 07:21 72 18 N/Cannula Low lpm 3.0 32 07/24/24 07:21 72 18 07/24/24 04:00 97.9 69 20 114/53 92 Nasal Cannula 5.0 LABS: Laboratory: Test 07/24/24 05:36 07/24/24 04:44 07/23/24 03:39 07/22/24 10:59 Range/Units Whole Blood Glucose 95 70-110 MG/DL White Blood Count 7.0 4.8-10.8 K/uL Red Blood Count 4.06 L 4.50-6.20 MIL/uL Hemoglobin 10.6 L 14.0-18.0 g/dL Hematocrit 35.5 L 42-54 % Mean Corpuscular Volume 87.4 79-99 fL Mean Corpuscular Hemoglobin 26.1 L 27.0-33.0 pg Mean Corpuscular Hemoglobin Concent 29.9 L 32.0-36.0 g/dL Red Cell Distribution Width 16.4 H 11.0-15.5 % Platelet Count 278 130-400 K/uL Mean Platelet Volume 8.6 7.5-10.5 fL Nucleated Red Blood Cells 0.0 0.0-0.19 % Sodium Level 140 136-145 mmol/L Potassium Level 3.6 3.5-5.1 mmol/L Chloride Level 98 L 101-111 mmol/L Carbon Dioxide Level 38 H 21-32 mmol/L Blood Urea Nitrogen 30 H 7-18 mg/dL Creatinine 1.4 H 0.5-1.3 mg/dL Glomerular Filtration Rate Calc 51 >90 mL/min Random Glucose 97 70-105 mg/dL Total Calcium 8.5 8.5-10.1 mg/dL Magnesium Level 2.10 1.80-2.40 mg/dL Immature Granulocyte % (Auto) 0.5 0-1 % Neutrophils (%) (Auto) 76.8 40.0-77.0 % Lymphocytes (%) (Auto) 15.2 L 21.0-51.0 % Monocytes (%) (Auto) 7.4 3.0-13.0 % Eosinophils (%) (Auto) 0.0 0.0-8.0 % Basophils (%) (Auto) 0.1 0.0-5.0 % Neutrophils # (Auto) 5.6 1.8-7.7 K/uL Lymphocytes # (Auto) 1.1 1.0-4.8 K/uL Monocytes # (Auto) 0.5 0.1-1.0 K/uL Eosinophils # (Auto) 0.00 0.00-0.70 K/uL Basophils # (Auto) 0.01 0.00-0.20 K/uL Absolute Immature Granulocyte (auto 0.04 0-1 K/uL Total Bilirubin 0.4 # 0.2-1.0 mg/dL Aspartate Amino Transf (AST/SGOT) 15 10-37 U/L Alanine Aminotransferase (ALT/SGPT) 20 12-78 U/L Alkaline Phosphatase 102 50-136 U/L B-Type Natriuretic Peptide 155 H 0-100 pg/mL Total Protein 6.9 6.0-8.3 g/dL Albumin 2.8 #L 3.5-5.0 g/dL Blood Gas Specimen Type Arterial Arterial Blood pH 7.367 7.350-7.450 Arterial Blood Partial Pressure CO2 57 H 35-48 mmHg Arterial Blood Partial Pressure O2 59.4 L 83.0-108.0 mmHg Arterial Blood HCO3 32.0 H 21.0-28.0 mmol/L Arterial Blood Oxygen Saturation 89.4 L 94.0-98.0 % Arterial Blood Base Excess 4.9 H -2.0-3.0 mmol/L Blood Gas Temperature 37.0 35.5-37.0 CELSIUS Blood Gas Flow-by 3.00 0.00-15.00 L/min Blood Gas Vent Mode NC ROOM AIR FiO2 32.0 % Blood Gas Specimen Comment LRNATALIA Current Medications Medications (Trade) Dose Ordered Sig/Viola Route PRN Reason Start Time Stop Time Status Last Admin Dose Admin Acetaminophen (TYLenol 325MG TAB) 650 mg Q6H PRN PO FEVER/MILD PAIN LEVEL 1-3 07/20/24 23:30 08/19/24 23:29 Acetaminophen (TYLenol 650MG SUPPOSITORY) 650 mg Q6H PRN RC FEVER / MILD PAIN 1-3 IF NPO 07/20/24 23:30 08/19/24 23:29 Acetylcysteine (MUComyst 20% 4ML) 400 mg [id number] IH 07/20/24 22:10 08/19/24 22:09 07/24/24 10:24 400 MG Albuterol Sulfate (Proventil 0.083% 2.5mg/3ml) 2.5 mg [id number] IH 07/20/24 22:00 08/19/24 21:59 07/24/24 10:24 2.5 MG Atorvastatin Calcium (LIPItor 40MG) 40 mg HS PO 07/21/24 21:00 08/20/24 20:59 07/23/24 19:44 40 MG Docusate Sodium (COLace 100MG CAP) 100 mg BID PRN PO c 07/20/24 23:30 08/19/24 23:29 07/22/24 08:27 100 MG Enoxaparin Sodium (Lovenox) 40 mg DAILY SQ 07/21/24 09:00 08/20/24 08:59 07/24/24 09:01 40 MG Furosemide (LASix 40MG VIAL) 40 mg Q8H IV 07/21/24 16:00 07/23/24 09:05 DC 07/22/24 23:36 40 MG Guaifenesin (RobiTUSSin SUGAR-FREE 100 MG/ 5 ML UDCUP) 400 mg Q4H PRN PO COUGH/COLD SYMPTOMS 07/21/24 05:30 08/20/24 05:29 07/22/24 21:12 400 MG Home Med (Home Medication) Prazosin HCl 1 MG HS PO 07/21/24 21:00 08/20/24 20:59 Home Med (Home Medication) Ropinirole HCl 4 MG QIDP PRN PO LP 07/21/24 09:30 08/20/24 09:29 Home Med (Home Medication) Sertraline HCl 25 MG DAILY PO 07/22/24 09:00 07/21/24 09:25 DC Hydralazine HCl (APRESOLine 20MG INJ) 10 mg Q2H PRN IV SBP GREATER THAN 160 07/20/24 23:30 08/19/24 23:29 Insulin Human Regular (humuLIN R 100 UNIT/ML 3ML) INSULIN SLIDING SCAL... ACHS SQ 07/21/24 07:30 08/20/24 07:29 07/23/24 20:23 4 UNIT Ipratropium Vickery (AtrovENT UD) 0.5 mg [id number] IH 07/20/24 22:00 08/19/24 21:59 07/24/24 10:24 0.5 MG Lactulose (Constulose 20gm/ 30ml Udcup) 20 gm Q6H PRN PO CONSTIPATION 07/20/24 23:30 08/19/24 23:29 Levofloxacin/ Dextrose 100 ml @ 100 mls/hr Q24H IV 07/21/24 21:00 07/24/24 09:17 DC 07/23/24 19:43 100 MLS/HR Levofloxacin/ Dextrose 150 ml @ 100 mls/hr Q48H IV 07/22/24 21:00 07/21/24 13:56 DC Linezolid 300 ml @ 150 mls/hr Q12H IV 07/21/24 15:00 07/31/24 14:59 07/24/24 02:02 150 MLS/HR Magnesium Sulfate 50 ml @ 0 mls/hr PROTOCOL IV 07/21/24 05:00 08/20/24 04:59 07/23/24 06:22 25 MLS/HR Meropenem (Merrem) 1 gm Q12H IVPB 07/24/24 09:30 08/03/24 09:29 Meropenem 1 gm/ Sodium Chloride 100 ml @ 33.333 mls/ hr Q8H IVPB 07/24/24 09:30 07/24/24 09:20 DC Methylprednisolone Sodium Succinate (Solu-medROL 40MG) 60 mg Q6H IVP 07/21/24 15:00 07/21/24 15:49 DC Methylprednisolone Sodium Succinate (Solu-medROL 125MG) 60 mg Q6H IVP 07/21/24 03:00 07/21/24 13:27 DC 07/21/24 09:20 60 MG Metolazone (zarOXOlyn) 2.5 mg BID PO 07/21/24 21:00 08/20/24 20:59 07/24/24 09:01 2.5 MG Metolazone (zarOXOlyn) 5 mg Q2D PO 07/21/24 09:00 07/21/24 09:25 DC Mirtazapine (REMeron 15 MG TAB) 30 mg HS PO 07/21/24 21:00 08/20/24 20:59 07/23/24 19:44 30 MG Miscellaneous Medication (Simvastatin (Zocor)) 40 mg HS PO 07/21/24 21:00 07/21/24 08:54 DC Montelukast Sodium (SinguLAIR) 10 mg DAILY PO 07/21/24 09:00 08/20/24 08:59 07/24/24 09:01 10 MG Multivitamins Therapeutic (Multivitamin Tablet) 1 tab DAILY PO 07/22/24 09:00 08/21/24 08:59 07/24/24 09:01 1 TAB Nystatin (NystOP 15 GM POWDER) apply to abdominal fold TID TP 07/21/24 21:00 08/20/24 20:59 07/24/24 09:03 1 APPL Ondansetron HCl (zoFRAN 4MG TABLET) 4 mg Q6H PRN PO nausea 07/21/24 13:30 07/21/24 13:27 DC Ondansetron HCl (zoFRAN 4MG INJ) 4 mg Q6H PRN IVP NAUSEA/VOMITING 07/20/24 23:30 08/19/24 23:29 Prednisone (deltaSONE/ oraSONE 20MG TAB) 40 mg DAILY PO 07/22/24 09:00 07/25/24 08:59 07/24/24 09:01 40 MG Sodium Chloride 1,000 ml @ 75 mls/hr [id number] IV 07/22/24 10:30 07/23/24 10:29 DC 07/22/24 10:28 75 MLS/HR Spironolactone (Aldactone 25mg) 25 mg DAILY PO 07/21/24 09:00 07/21/24 09:25 DC Tamsulosin HCl (FloMAX) 0.4 mg HS PO 07/21/24 21:00 08/20/24 20:59 07/23/24 19:44 0.4 MG Temazepam (restORIL 15 MG CAP) 15 mg HS PRN PO INSOMNIA/SLEEP 07/20/24 23:30 08/19/24 23:29 07/22/24 21:11 15 MG Tramadol HCl (UltRAM) 50 mg Q6H PRN PO PAIN LEVEL 7 TO 10 07/21/24 01:30 07/26/24 01:29 07/22/24 21:11 50 MG Venlafaxine HCl (EffEXOR 50 mg TAB) 150 mg DAILY PO 07/21/24 09:00 08/20/24 08:59 07/24/24 09:01 150 MG Wound Care/ Dressing Products (Venelex Ointment) 1 APPL TID TP 07/23/24 14:00 08/20/24 20:59 07/24/24 09:03 60 GM Wound Care/ Dressing Products (Venelex Ointment) 1 gm TID TP 07/21/24 21:00 07/23/24 12:57 DC 07/23/24 09:35 1 GM DIAGNOSTICS / RADIOLOGY: [ ] ASSESSMENT: Acute hypoxemic hypercapnic respiratory failure, requiring BiPAP COPD exacerbation Acute complicated cystitis, POA Chronic bilateral lower extremity venous ulcers Acute on chronic lower extremity cellulitis Anemia of chronic disease Hypomagnesemia Hyperglycemia Obstructive sleep apnea Morbid obesity, BMI 41.1 Chronic problem list: HLP, BPH, anemia, chronic back and knee pain, PTSD, morbid obesity Deconditioned Functional decline PLAN: -Admit to PCCU with continuous telemetry monitoring -Monitor respiratory status closely, continue with3 L nasal cannula -continue BiPAP, titrate oxygen prn to keep Spo2>/+=92%. -monitor ABGs and chest x-ray -Albuterol and Atrovent nebulizer treatments scheduled q.4 hours. -RT to provide IS and education on use. -Robitussin DM as needed cough. -Start montelukast 10 mg p.o. daily. -start Mucomyst 400 mg IH q.4 hours. -patient will continue with steroid currently on prednisone 40 mg p.o. daily -appreciate recommendations from contract administration manager we will continue to follow -appreciate ID recommendation we will continue with IV antibiotic -p.r.n. medications for: Pain management, fever, nausea, vomiting, constipation, hypertension -Glucometer checks AC & HS needed with insulin regular sliding scale coverage as needed. -Blood pressure checks every 4 hours and as needed. -AM labs: monitor renal and liver function, monitor electrolytes and replace PRN -GI and DVT prophylaxis -we will request PT eval and treat -case management for placement Case was seen and examined with Dr. Cruz, above plan was formulated ATTESTATION BY PHYSICIAN I have seen and examined the patient. I reviewed the documentation, medical decision making, and treatment plan as noted by the mid-level provider above. I agree with the findings and plan of care. Meg Cruz MD, [facility] Jul 24, 2024 10:53
[2024-07-24] MEDS: MEROPENEM 1 GM VIAL IVPB SCH (11:44)
--- NOTE | 2024-07-24 16:12 | PN ---
INFECTIOUS DISEASE PROGRESS NOTE Date of Service: Jul 24, 2024 SUBJECTIVE: This is an 79-year-old male patient with past medical history of COPD with oxygen dependent and chronic bilateral lower extremities venous ulcers who was admitted to the hospital with chief complaint of shortness of breaths. Patient was seen and examined at bedside in room 302. Patient is awake, alert and oriented x3. Patient continue with crackles bilateral upper lobes. Oxygen support via nasal cannula. The final sputum culture results came back positive for Klebsiella pneumoniae and Proteus mirabilis. Patient has been started on meropenem and levofloxacin was discontinued by the critical Care team. We will also continue linezolid. No reports of fever, temperature is 98.1. Patient continues with bilateral lower extremities erythema and edema. We will continue to monitor patient's care. PHYSICAL EXAM EYES: Anicteric. Pupils equal and reactive. HENT: No oral thrush seen, moist Oral mucosa. NECK: Supple, no JVD or thyromegaly. LUNGS: Good air entry. no rhonchi. Crackles to bilateral upper lobes. Oxygen support. CARDIOVASCULAR: S1, S2 regular. No murmur heard. ABDOMEN: Soft, non tender, bowel sounds present, no organomegaly. CENTRAL NERVOUS SYSTEM: Awake, alert, oriented x 3. SKIN: No rashes, no swelling. Bilateral lower extremity erythema. LYMPHATICS: No peripheral lymphadenopathy. MUSCULOSKELETAL: No joint swelling, erythema or tenderness. EXTREMITIES: No cyanosis or clubbing. Bilateral lower extremity edema. BACK: No deformity, no pressure ulcer. GENITOURINARY: No dysuria or hematuria. Vital Sign (Last 12 Hours) 07/24/24 07/24/24 07/24/24 07/24/24 07:21 07:21 08:00 08:00 Temp 98.1 Pulse 72 72 76 Resp 18 18 18 B/P (MAP) 136/70 Pulse Ox 97 93 O2 Delivery N/Cannula Low lpm Nasal Cannula* Nasal Cannula O2 Flow Rate 3.0 5 1.0 FiO2 32 40 07/24/24 07/24/24 07/24/24 07/24/24 10:26 10:26 12:00 14:27 Temp 98.2 Pulse 75 75 73 74 Resp 18 18 18 18 B/P (MAP) 138/62 Pulse Ox 91 O2 Delivery N/Cannula Low lpm Nasal Cannula N/Cannula Low lpm O2 Flow Rate 3.0 2.0 3.0 FiO2 32 32 07/24/24 14:28 Pulse 74 Resp 18 Intake & Output (last 24hrs) 07/23/24 07/23/24 07/24/24 15:00 23:00 07:00 Intake Total 240 ml 860.0 ml 440.0 ml Output Total 500 ml 1250 ml 2000 ml Balance -260 ml -390.0 ml -1560.0 ml LABS: Laboratory: Test 07/24/24 15:57 07/24/24 04:44 07/23/24 03:39 Range/Units Whole Blood Glucose 177 #H 70-110 MG/DL White Blood Count 7.0 4.8-10.8 K/uL Red Blood Count 4.06 L 4.50-6.20 MIL/uL Hemoglobin 10.6 L 14.0-18.0 g/dL Hematocrit 35.5 L 42-54 % Mean Corpuscular Volume 87.4 79-99 fL Mean Corpuscular Hemoglobin 26.1 L 27.0-33.0 pg Mean Corpuscular Hemoglobin Concent 29.9 L 32.0-36.0 g/dL Red Cell Distribution Width 16.4 H 11.0-15.5 % Platelet Count 278 130-400 K/uL Mean Platelet Volume 8.6 7.5-10.5 fL Nucleated Red Blood Cells 0.0 0.0-0.19 % Sodium Level 140 136-145 mmol/L Potassium Level 3.6 3.5-5.1 mmol/L Chloride Level 98 L 101-111 mmol/L Carbon Dioxide Level 38 H 21-32 mmol/L Blood Urea Nitrogen 30 H 7-18 mg/dL Creatinine 1.4 H 0.5-1.3 mg/dL Glomerular Filtration Rate Calc 51 >90 mL/min Random Glucose 97 70-105 mg/dL Total Calcium 8.5 8.5-10.1 mg/dL Magnesium Level 2.10 1.80-2.40 mg/dL Immature Granulocyte % (Auto) 0.5 0-1 % Neutrophils (%) (Auto) 76.8 40.0-77.0 % Lymphocytes (%) (Auto) 15.2 L 21.0-51.0 % Monocytes (%) (Auto) 7.4 3.0-13.0 % Eosinophils (%) (Auto) 0.0 0.0-8.0 % Basophils (%) (Auto) 0.1 0.0-5.0 % Neutrophils # (Auto) 5.6 1.8-7.7 K/uL Lymphocytes # (Auto) 1.1 1.0-4.8 K/uL Monocytes # (Auto) 0.5 0.1-1.0 K/uL Eosinophils # (Auto) 0.00 0.00-0.70 K/uL Basophils # (Auto) 0.01 0.00-0.20 K/uL Absolute Immature Granulocyte (auto 0.04 0-1 K/uL Total Bilirubin 0.4 # 0.2-1.0 mg/dL Aspartate Amino Transf (AST/SGOT) 15 10-37 U/L Alanine Aminotransferase (ALT/SGPT) 20 12-78 U/L Alkaline Phosphatase 102 50-136 U/L B-Type Natriuretic Peptide 155 H 0-100 pg/mL Total Protein 6.9 6.0-8.3 g/dL Albumin 2.8 #L 3.5-5.0 g/dL ASSESSMENT: Hypoxic respiratory failure. Gram-negative Pneumonia. Bilateral lower extremity cellulitis. Bilateral lower extremities chronic leg ulcers. Medical noncompliance. COPD with home O2 dependent. Morbid obesity. PLAN: Was started on meropenem. Continue linezolid. levofloxacin was discontinued. Keep lower extremities Elevated. Continue bronchodilators. Continue oxygen support. Continue diuretics as currently ordered. This case was reviewed and discussed with my supervising physician and the above assessment and plan was formulated and agreed upon. ATTESTATION BY PHYSICIAN I have seen and examined the patient. I reviewed the documentation, medical decision making, and treatment plan as noted by the mid-level provider above. I agree with the findings and plan of care. VERONICA KILPATRICK MD, MIRTA L [facility] Jul 24, 2024 16:12
[2024-07-24] MEDS: ROPINIROLE HCL 4 MG PO PRN (20:15)
[2024-07-25] VITALS (14 sets, daily range): BP systolic 110–142; BP diastolic 53–71; PULSE 78–113; RESP 18–20; TEMP 97.4–98.6; O2SAT 90–95
[2024-07-25 05:32] LABS: HEMATOCRIT 36.4 % (42-54); MEAN CORPUSCULAR HEMOGLOBIN 25.8 pg (27.0-33.0); MEAN CORPUSCULAR HGB CONC 29.7 g/dL (32.0-36.0); MEAN CORPUSCULAR VOLUME 86.9 fL (79-99); RED BLOOD CELL COUNT(AUTO) 4.19 MIL/uL (4.50-6.20); RED CELL DISTRIBUTION WIDTH 16.6 % (11.0-15.5); WHITE BLOOD COUNT (AUTO) 8.1 K/uL (4.8-10.8)
[2024-07-25 05:44] LABS: CREATININE 1.3 mg/dL (0.5-1.3); POTASSIUM 3.7 mmol/L (3.5-5.1)
--- NOTE | 2024-07-25 08:08 | PN ---
[facility] PROGRESS NOTE Date of Service: Jul 25, 2024 Time of Service: 08:08 SUBJECTIVE: [ Patient seen and examined in room [address] Brian Edwards Admitting date 07/20/2024 Mr. Garcia is an 79-year-old male with a history of hypertension, CAD, obstructive sleep apnea, COPD, O2 dependent usually on 3 L O2, chronic knee and back pain, AAA, and chronic bilateral lower extremity venous ulcers, chronic lower extremity cellulitis who presented to [facility] ED via EMS for evaluation of shortness of breath. According to EMS [facility] The patient reported cough, congestion, and some mild difficulty breathing. Chest x-ray: Mild bilateral pulmonary infiltrates are seen may be related to mild pulmonary vascular congestion with possible superimposed pneumonitis. ABGs : PH 7.308, pCO2 60, PO2 72.5, bicarbonate 29.5, O2 sats 93. ED provider request patient be admitted to the hospital with a diagnosis of pneumonia, status dermatitis to bilateral lower extremities, and COPD exacerbation. 07/21 patient was seen by nurse practitioner and physician during rounding in room 302 lying in bed. Patient just underwent 2D echo and at this moment he is on 6 L nasal cannula. RT was called to place patient on a BiPAP due to most recent ABG gases abnormal results. We are pending further evaluation/anne mmendations of mini shifter, ID and wound. Patient continues to be on levofloxacin methylprednisolone IV ipratropium and albuterol. We will continue to monitor patient in the meantime. A.m. labs. 07/22 patient was seen by nurse practitioner and physician during rounding in room 302. Patient is pending most recent ABG gases. Patient is refusing BiPAP and at this moment he is on 5 L nasal cannula. Per RN patient was on BiPAP yesterday all day but unfortunately in the evening he already declined BiPAP. 2D echo showed 55 to 60% EF. Venous Doppler and chest CT is pending. Per ID patient is on Zyvox and levofloxacin. Patient also is on Lasix 40 mg Q 8 hours. Methylprednisolone will discontinue patient was placed on prednisolone POA. Pulmonology and ID is following the patient. Patient stated he feels much better compared to the previous day. We will continue to monitor patient in the meantime. A.m. labs. PT working with the patient] 07/23 patient has been evaluated in room 302, he continues with3 L oxygen supplementation with nasal cannula, saturating at 95%. I reviewed imaging CT chest showed tiny bilateral pleural effusion mild pulmonary infiltrates bilaterally. Apparently patient is refusing BiPAP. Access Rep indicated that he will probably benefit to trilogy. At this point, patient will continue with IV antibiotics respiratory culture came back Gram-negative rods. Patient also has MRSA to the nares. Patient continues with prednisone 40 mg p.o. daily and Levaquin IV. 07/24 patient was evaluated in the room. He continues with oxygen supplementation at 3 L. Patient is back at baseline. Patient did mention that he still feels very weak unable to ambulate. He would like to go to a assisted facility to continue with rehabilitation. We will be consulting case management and physical therapist to ju. 07/25 Today on bedside evaluation patient was found awake alert and oriented x 3. Latest vitals are stable, satting 92% on2 L nasal cannula. Today's labs are stable. Respiratory cultures growing ESBL Klebsiella pneumoniae and Proteus mirabilis. Id continues IV Merrem and linezolid. Case management coordinating for placement. REVIEW OF SYSTEMS 12-point ROS reviewed with patient. All pertinent positives mentioned above. Otherwise negative, noncontributory, or non-pertinent. PHYSICAL EXAM GENERAL APPEARANCE: The patient is awake, alert, and oriented, in no acute cardiopulmonary distress. NEUROLOGICAL: Cranial nerves II-XII grossly intact. Motor is 5/5 in bilateral upper and lower extremities proximal to distal. No sensory deficits. HEENT: Face is symmetric. Pupils are equal and reactive. Extraocular movements are intact. NECK: Supple. No JVD. No thyromegaly. No submental, submandibular, pre- /postauricular, occipital or supraclavicular lymphadenopathy. CHEST: Normal chest expansion. No Telemetry. LUNGS: Tachypneic, wheezing, and lungs sounded wet. Patient had a very productive cough, and was spitting phlegm into a napkin while the I assessed him. CARDIOVASCULAR: Regular. S1 and S2 normal. No appreciable rubs, murmurs or gallops. ABDOMEN: Soft, nontender, and nondistended. There is no rebound, voluntary guarding, or rigidity. : Deferred. No Ramirez. EXTREMITIES: Non-edematous and not cyanotic. No clubbing. Good capillary refill. SKIN: No skin breakdown. Vital Signs (last 8hr) Date Time Temp Pulse Resp B/P (MAP) Pulse Ox O2 Delivery O2 Flow Rate FiO2 07/25/24 04:00 98.6 88 20 120/58 92 Nasal Cannula 3.0 07/25/24 02:27 84 18 LABS: Laboratory: Test 07/25/24 05:19 07/25/24 05:17 07/24/24 04:44 Range/Units White Blood Count 8.1 4.8-10.8 K/uL Red Blood Count 4.19 L 4.50-6.20 MIL/uL Hemoglobin 10.8 L 14.0-18.0 g/dL Hematocrit 36.4 L 42-54 % Mean Corpuscular Volume 86.9 79-99 fL Mean Corpuscular Hemoglobin 25.8 L 27.0-33.0 pg Mean Corpuscular Hemoglobin Concent 29.7 L 32.0-36.0 g/dL Red Cell Distribution Width 16.6 H 11.0-15.5 % Platelet Count 304 130-400 K/uL Mean Platelet Volume 8.9 7.5-10.5 fL Nucleated Red Blood Cells 0.0 0.0-0.19 % Sodium Level 141 136-145 mmol/L Potassium Level 3.7 3.5-5.1 mmol/L Chloride Level 100 L 101-111 mmol/L Carbon Dioxide Level 37 H 21-32 mmol/L Blood Urea Nitrogen 32 H 7-18 mg/dL Creatinine 1.3 0.5-1.3 mg/dL Glomerular Filtration Rate Calc 56 >90 mL/min Random Glucose 117 H 70-105 mg/dL Total Calcium 8.3 L 8.5-10.1 mg/dL Whole Blood Glucose 120 H 70-110 MG/DL Magnesium Level 2.10 1.80-2.40 mg/dL Current Medications Medications (Trade) Dose Ordered Sig/Viola Route PRN Reason Start Time Stop Time Status Last Admin Dose Admin Acetaminophen (TYLenol 325MG TAB) 650 mg Q6H PRN PO FEVER/MILD PAIN LEVEL 1-3 07/20/24 23:30 08/19/24 23:29 Acetaminophen (TYLenol 650MG SUPPOSITORY) 650 mg Q6H PRN RC FEVER / MILD PAIN 1-3 IF NPO 07/20/24 23:30 12/26/24 23:29 Acetylcysteine (MUComyst 20% 4ML) 400 mg [id number] IH 07/20/24 22:10 08/19/24 22:09 07/25/24 02:24 400 MG Albuterol Sulfate (Proventil 0.083% 2.5mg/3ml) 2.5 mg [id number] IH 07/20/24 22:00 08/19/24 21:59 07/25/24 02:24 2.5 MG Atorvastatin Calcium (LIPItor 40MG) 40 mg HS PO 07/21/24 21:00 08/20/24 20:59 07/24/24 20:12 40 MG Docusate Sodium (COLace 100MG CAP) 100 mg BID PRN PO c 07/20/24 23:30 08/19/24 23:29 07/22/24 08:27 100 MG Enoxaparin Sodium (Lovenox) 40 mg DAILY SQ 07/21/24 09:00 08/20/24 08:59 07/24/24 09:01 40 MG Furosemide (LASix 40MG VIAL) 40 mg Q8H IV 07/21/24 16:00 07/23/24 09:05 DC 07/22/24 23:36 40 MG Guaifenesin (RobiTUSSin SUGAR-FREE 100 MG/ 5 ML UDCUP) 400 mg Q4H PRN PO COUGH/COLD SYMPTOMS 07/21/24 05:30 08/20/24 05:29 07/22/24 21:12 400 MG Home Med (Home Medication) Prazosin HCl 1 MG HS PO 07/21/24 21:00 08/20/24 20:59 Home Med (Home Medication) Ropinirole HCl 4 MG QIDP PRN PO LP 07/21/24 09:30 08/20/24 09:29 Home Med (Home Medication) Sertraline HCl 25 MG DAILY PO 07/22/24 09:00 07/21/24 09:25 DC Hydralazine HCl (APRESOLine 20MG INJ) 10 mg Q2H PRN IV SBP GREATER THAN 160 07/20/24 23:30 08/19/24 23:29 Insulin Human Regular (humuLIN R 100 UNIT/ML 3ML) INSULIN SLIDING SCAL... ACHS SQ 07/21/24 07:30 08/20/24 07:29 07/24/24 20:13 4 UNIT Ipratropium [place] (AtrovENT UD) 0.5 mg [id number] IH 07/20/24 22:00 08/19/24 21:59 07/25/24 02:24 0.5 MG Lactulose (Constulose 20gm/ 30ml Udcup) 20 gm Q6H PRN PO CONSTIPATION 07/20/24 23:30 08/19/24 23:29 Levofloxacin/ Dextrose 100 ml @ 100 mls/hr Q24H IV 07/21/24 21:00 07/24/24 09:17 DC 07/23/24 19:43 100 MLS/HR Levofloxacin/ Dextrose 150 ml @ 100 mls/hr Q48H IV 07/22/24 21:00 07/21/24 13:56 DC Linezolid 300 ml @ 150 mls/hr Q12H IV 07/21/24 15:00 07/31/24 14:59 07/25/24 02:38 150 MLS/HR Magnesium Sulfate 50 ml @ 0 mls/hr PROTOCOL IV 07/21/24 05:00 08/20/24 04:59 07/23/24 06:22 25 MLS/HR Meropenem (Merrem) 1 gm Q12H IVPB 07/24/24 09:30 08/03/24 09:29 07/24/24 20:15 1 GM Meropenem 1 gm/ Sodium Chloride 100 ml @ 33.333 mls/ hr Q8H IVPB 07/24/24 09:30 07/24/24 09:20 DC Methylprednisolone Sodium Succinate (Solu-medROL 40MG) 60 mg Q6H IVP 07/21/24 15:00 07/21/24 15:49 DC Methylprednisolone Sodium Succinate (Solu-medROL 125MG) 60 mg Q6H IVP 07/21/24 03:00 07/21/24 13:27 DC 07/21/24 09:20 60 MG Metolazone (zarOXOlyn) 2.5 mg BID PO 07/21/24 21:00 08/20/24 20:59 07/24/24 20:12 2.5 MG Metolazone (zarOXOlyn) 5 mg Q2D PO 07/21/24 09:00 07/21/24 09:25 DC Mirtazapine (REMeron 15 MG TAB) 30 mg HS PO 07/21/24 21:00 08/20/24 20:59 07/24/24 20:12 30 MG Miscellaneous Medication (Simvastatin (Zocor)) 40 mg HS PO 07/21/24 21:00 07/21/24 08:54 DC Montelukast Sodium (SinguLAIR) 10 mg DAILY PO 07/21/24 09:00 08/20/24 08:59 07/24/24 09:01 10 MG Multivitamins Therapeutic (Multivitamin Tablet) 1 tab DAILY PO 07/22/24 09:00 08/21/24 08:59 07/24/24 09:01 1 TAB Nystatin (NystOP 15 GM POWDER) apply to abdominal fold TID TP 07/21/24 21:00 08/20/24 20:59 07/24/24 20:14 1 APPL Ondansetron HCl (zoFRAN 4MG TABLET) 4 mg Q6H PRN PO nausea 07/21/24 13:30 07/21/24 13:27 DC Ondansetron HCl (zoFRAN 4MG INJ) 4 mg Q6H PRN IVP NAUSEA/VOMITING 07/20/24 23:30 08/19/24 23:29 Prednisone (deltaSONE/ oraSONE 20MG TAB) 40 mg DAILY PO 07/22/24 09:00 07/25/24 08:59 07/24/24 09:01 40 MG Sodium Chloride 1,000 ml @ 75 mls/hr [id number] IV 07/22/24 10:30 07/23/24 10:29 DC 07/22/24 10:28 75 MLS/HR Spironolactone (Aldactone 25mg) 25 mg DAILY PO 07/21/24 09:00 07/21/24 09:25 DC Tamsulosin HCl (FloMAX) 0.4 mg HS PO 07/21/24 21:00 08/20/24 20:59 07/24/24 20:11 0.4 MG Temazepam (restORIL 15 MG CAP) 15 mg HS PRN PO INSOMNIA/SLEEP 07/20/24 23:30 08/19/24 23:29 07/22/24 21:11 15 MG Tramadol HCl (UltRAM) 50 mg Q6H PRN PO PAIN LEVEL 7 TO 10 07/21/24 01:30 07/26/24 01:29 07/22/24 21:11 50 MG Venlafaxine HCl (EffEXOR 50 mg TAB) 150 mg DAILY PO 07/21/24 09:00 08/20/24 08:59 07/24/24 09:01 150 MG Wound Care/ Dressing Products (Venelex Ointment) 1 APPL TID TP 07/23/24 14:00 08/20/24 20:59 07/24/24 20:15 1 GM Wound Care/ Dressing Products (Venelex Ointment) 1 gm TID TP 07/21/24 21:00 07/23/24 12:57 DC 07/23/24 09:35 1 GM DIAGNOSTICS / RADIOLOGY: [ ] ASSESSMENT: Acute hypoxemic hypercapnic respiratory failure, requiring BiPAP COPD exacerbation Acute complicated cystitis, POA Chronic bilateral lower extremity venous ulcers Acute on chronic lower extremity cellulitis Anemia of chronic disease Hypomagnesemia Hyperglycemia Obstructive sleep apnea Morbid obesity, BMI 41.1 Chronic problem list: HLP, BPH, anemia, chronic back and knee pain, PTSD, morbid obesity Deconditioned Functional decline PLAN: -continue admission in the medical-surgical unit -continue telemetry monitoring -Monitor respiratory status closely, continue with 3 L nasal cannula -continue BiPAP, -titrate O2. -monitor ABGs and chest x-ray -continue Albuterol and Atrovent nebulizer treatments scheduled q.4 hours. -RT to provide IS hourly as tolerated and education on use. -Robitussin DM as needed cough. -continue montelukast 10 mg p.o. daily. -continue Mucomyst 400 mg IH q.4 hours. -corticosteroids have been discontinued -following mini shifter's recommendations -continue IV Merrem and linezolid -Dr. Pardo for antimicrobial stewardship. -continue Glucometer checks AC & HS needed with insulin regular sliding scale coverage as needed. -Blood pressure checks every 4 hours and as needed. -continue to work with physical therapy -monitor a.m. labs -PRN Treatment - Add when necessary meds for nausea, vomiting, pain, constipation, insomnia. -DVT/GI prophylaxis- Continue Lovenox at current doses. -Full CODE STATUS -Case management coordinating for SNF placement This document was generated in part using voice recognition software, occasional wrong word or sound alike substitutions may have occurred due to the inherent limitations of voice recognition software. Read the chart carefully and recognize using context, where the substitutions have occurred. Although every effort was made to edit the content, senior developer and typing errors may occur ATTESTATION BY PHYSICIAN I have seen and examined the patient. I reviewed the documentation, medical decision making, and treatment plan as noted by the mid-level provider above. I agree with the findings and plan of care. Tc Castanon MD, [facility] Jul 25, 2024 08:08 TC CASTANON MD Jul 25, 2024 22:57
--- NOTE | 2024-07-25 11:47 | PN ---
INFECTIOUS DISEASE PROGRESS NOTE Date of Service: Jul 25, 2024 SUBJECTIVE: This is an 79-year-old male patient with past medical history of COPD with oxygen dependent and chronic bilateral lower extremities venous ulcers who was admitted to the hospital with chief complaint of shortness of breaths. Patient was seen and examined at bedside in room 302. Patient is awake, alert and oriented x3. Continues on Oxygen support via nasal cannula. Patient is afebrile, temperature is 98.2 and a WBC of 8.1. Continue on meropenem and linezolid. Patient continues with bilateral lower extremities erythema and edema. We will continue to monitor patient's care. PHYSICAL EXAM EYES: Anicteric. Pupils equal and reactive. HENT: No oral thrush seen, moist Oral mucosa. NECK: Supple, no JVD or thyromegaly. LUNGS: Good air entry. no rhonchi. Crackles to bilateral upper lobes. Oxygen support. CARDIOVASCULAR: S1, S2 regular. No murmur heard. ABDOMEN: Soft, non tender, bowel sounds present, no organomegaly. CENTRAL NERVOUS SYSTEM: Awake, alert, oriented x 3. SKIN: No rashes, no swelling. Bilateral lower extremity erythema. LYMPHATICS: No peripheral lymphadenopathy. MUSCULOSKELETAL: No joint swelling, erythema or tenderness. EXTREMITIES: No cyanosis or clubbing. Bilateral lower extremity edema. BACK: No deformity, no pressure ulcer. GENITOURINARY: No dysuria or hematuria. Vital Sign (Last 12 Hours) 07/25/24 07/25/24 07/25/24 07/25/24 00:00 02:27 04:00 08:00 Temp 97.3 98.6 98.2 Pulse 113 84 88 78 Resp 20 18 20 18 B/P (MAP) 139/60 120/58 110/53 Pulse Ox 92 92 91 O2 Delivery Nasal Cannula Nasal Cannula Room Air O2 Flow Rate 3.0 3.0 07/25/24 07/25/24 10:15 10:15 Pulse 89 89 Resp 18 18 O2 Delivery N/Cannula Low lpm O2 Flow Rate 3.0 FiO2 32 Intake & Output (last 24hrs) 0 07/24/24 07/24/24 07/25/24 15:00 23:00 07:00 Intake Total 2740.0 ml 660.0 ml Output Total 1060 ml 2650 ml 1950 ml Balance -1060 ml 90.0 ml -1290.0 ml LABS: Laboratory: Test 07/25/24 11:37 07/25/24 05:19 07/24/24 04:44 Range/Units Whole Blood Glucose 100 70-110 MG/DL White Blood Count 8.1 4.8-10.8 K/uL Red Blood Count 4.19 L 4.50-6.20 MIL/uL Hemoglobin 10.8 L 14.0-18.0 g/dL Hematocrit 36.4 L 42-54 % Mean Corpuscular Volume 86.9 79-99 fL Mean Corpuscular Hemoglobin 25.8 L 27.0-33.0 pg Mean Corpuscular Hemoglobin Concent 29.7 L 32.0-36.0 g/dL Red Cell Distribution Width 16.6 H 11.0-15.5 % Platelet Count 304 130-400 K/uL Mean Platelet Volume 8.9 7.5-10.5 fL Nucleated Red Blood Cells 0.0 0.0-0.19 % Sodium Level 141 136-145 mmol/L Potassium Level 3.7 3.5-5.1 mmol/L Chloride Level 100 L 101-111 mmol/L Carbon Dioxide Level 37 H 21-32 mmol/L Blood Urea Nitrogen 32 H 7-18 mg/dL Creatinine 1.3 0.5-1.3 mg/dL Glomerular Filtration Rate Calc 56 >90 mL/min Random Glucose 117 H 70-105 mg/dL Total Calcium 8.3 L 8.5-10.1 mg/dL Magnesium Level 2.10 1.80-2.40 mg/dL ASSESSMENT: Hypoxic respiratory failure. Gram-negative Pneumonia. Bilateral lower extremity cellulitis. Bilateral lower extremities chronic leg ulcers. Medical noncompliance. COPD with home O2 dependent. Morbid obesity. PLAN: Continue on meropenem. Continue linezolid. Keep lower extremities Elevated. Continue bronchodilators. Continue oxygen support. Continue diuretics as currently ordered. Pending case management evaluation for SNF referral. This case was reviewed and discussed with my supervising physician and the above assessment and plan was formulated and agreed upon. ATTESTATION BY PHYSICIAN I have seen and examined the patient. I reviewed the documentation, medical decision making, and treatment plan as noted by the mid-level provider above. I agree with the findings and plan of care. VERONICA KILPATRICK MD, [facility] Jul 25, 2024 11:47
--- NOTE | 2024-07-25 15:30 | NUR ---
DC PLAN RECEIVED TRIGGER FOR SNF. SPOKE TO PATIENT. ANA M SIGNED FOR [facility]. PATIENT [facility]S TO USE [facility]. EXPLAINED THAT DUE TO WEEKEND AND HOLIDAY [facility] WILL RECEIVE REFERRAL ON FRIDAY. PACKET MADE AND SENT TO FACILITY. REP NOTIFIED WILL VISIT WITH PATIENT TO DO EVAL. Addendum: 07/25/24 at 1630 by POLO MURPHY RN CM Amended: Links added.
--- NOTE | 2024-07-25 15:33 | PN ---
[facility] PROGRESS NOTE Date Patient Seen: Jul 25, 2024 Time of Visit: 15:32 Supervising Physician: Dr. Gautam Millan Primary Care Physician: [[facility]] Outpatient Specialists: [ ] Inpatient Consults: [[facility]] PROBLEM LIST: Acute hypoxemic hypercapnic respiratory failure, requiring BiPAP MDRO multifocal pneumonia- POA- positive for MRSA on nasal swab, sputum cultures with Klebsiella, proteus, and ESBL Acute on chronic diastolic heart failure, POA- LVEF 55-60% Acute renal failure from ATN COPD exacerbation, POA Acute complicated cystitis, POA Chronic bilateral lower extremity venous ulcers Acute on chronic lower extremity cellulitis Anemia of chronic disease Hypomagnesemia Hyperglycemia Hyperlipidemia Benign prostate hyperplasia Post traumatic stress disorder Chronic back pain Obstructive sleep apnea Morbid obesity, BMI 41.1 Hx of DVT, R-popliteal vein 12/31/2023 Plan: Prednisone Order venous doppler negative Restrict fluid intake, daily weights, monitor I&O Echo with diastolic dysfunction Adjust antibiotics for MDRO. ID is following. Order sputum culture, follow blood culture result Other management per primary INTERVAL HISTORY: Patient is awake alert and oriented x3 no acute event overnight. Patient had been hypercapnic but can not tolerated BiPAP. We will repeat blood gas. Lab this morning with creatinine is up to 1.6 from 1.2. Potassium is 4.0 bicarb is 30. BUN is 26 patient likely is hypovolemic. We will give him IV fluids for today and repeat lab in the morning. Check MRSA swab. Continue antibiotic. Continue with prednisone. 07/23 patient is awake alert and oriented x3 no acute event overnight. Vital signs blood pressure 124/94 heart rate is 76 respiratory rate is 20. His T-max is 97.9 he remains on 5 L nasal cannula with saturation oxygen of 94%. Remark able lab findings with creatinine up to 1.7 from 1.6, patient had voided 5.7 L with balance-3.5 L. we will hold Lasix given worsening renal function and contraction alkalosis with bicarbonate 39. We will complete NS today. Otherwise history repeat blood gas is steady pH 7.36, pCO2 57 bicarb is 32 PO2 is 59. Patient has been refusing BiPAP. continue antibiotic and nebulizer. He may be benefited from a trilogy. 07/24 patient is awake alert oriented X 3. no acute event overnight. Vital signs blood pressure 136/70 heart rate is 76 T-max 98.1. He is on 1 L of oxygen support 93%. Obtain chest x-ray this morning. We had discontinued the IV fluid yesterday and he put out 3.7 L of urine output with balance-2.2 L. culture of the sputum is growing Klebsiella, Proteus mirabilis, and positive MRSA. Continue with Zyvox for discontinue Levaquin. Start patient on meropenem. We will have case management to arrange for snf for antibiotic. 07/25 patient is awake alert oriented x3, lying down in his bed watching a movie on his laptop, not in acute distress. He is feeling much better. He remains on oxygen at 3 L nasal cannula. His creatinine is down to 1.3 from 1.4. Continue with current regimen for MDRO pneumonia with meropenem and zyvox for MRSA. From pulmonary standpoint, he can go to SNF. Follow up with pulmonology in 2 weeks post SNF. REVIEW OF SYSTEMS: 12 point ROS reviewed with patient. Pertinent positives mentioned above. Otherwise negative. PHYSICAL EXAM: GENERAL: alert, weak, awake oriented x 3 HEENT: EOMI, Sclera non icteric, moist mucosa NECK: Supple, no JVD, trachea midline LUNGS: Clear breath sounds bilaterally. No wheezes HEART: Regular rate and rhythm. Normal S1 and S2, without murmurs ABD: Abdomen soft, nontender. Bowel sounds present EXT: No clubbing cyanosis or edema NEURO: Alert and oriented to person, follows commands Vital Signs (last 8hr) Date Time Temp Pulse Resp B/P (MAP) Pulse Ox O2 Delivery O2 Flow Rate FiO2 07/25/24 12:53 97.9 81 19 128/66 93 Nasal Cannula 2.0 07/25/24 10:15 89 18 N/Cannula Low lpm 3.0 32 07/25/24 10:15 89 18 07/25/24 08:00 98.2 78 18 110/53 91 Room Air LABS: Hematology Labs: Test 07/25/24 05:19 Range/Units White Blood Count 8.1 4.8-10.8 K/uL Red Blood Count 4.19 L 4.50-6.20 MIL/uL Hemoglobin 10.8 L 14.0-18.0 g/dL Hematocrit 36.4 L 42-54 % Mean Corpuscular Volume 86.9 79-99 fL Mean Corpuscular Hemoglobin 25.8 L 27.0-33.0 pg Mean Corpuscular Hemoglobin Concent 29.7 L 32.0-36.0 g/dL Red Cell Distribution Width 16.6 H 11.0-15.5 % Platelet Count 304 130-400 K/uL Mean Platelet Volume 8.9 7.5-10.5 fL Nucleated Red Blood Cells 0.0 0.0-0.19 % Chemistry Labs: Test 07/25/24 11:37 07/25/24 05:19 07/24/24 04:44 Range/Units Whole Blood Glucose 100 70-110 MG/DL Sodium Level 141 136-145 mmol/L Potassium Level 3.7 3.5-5.1 mmol/L Chloride Level 100 L 101-111 mmol/L Carbon Dioxide Level 37 H 21-32 mmol/L Blood Urea Nitrogen 32 H 7-18 mg/dL Creatinine 1.3 0.5-1.3 mg/dL Glomerular Filtration Rate Calc 56 >90 mL/min Random Glucose 117 H 70-105 mg/dL Total Calcium 8.3 L 8.5-10.1 mg/dL Magnesium Level 2.10 1.80-2.40 mg/dL DIAGNOSTICS / RADIOLOGY RESULTS: [ ] PLAN NEURO: Minimize central acting medications as possible. Maintain fall precautions, adequate lighting during the day PULMONARY: Supplemental 02 as needed. Maintain aspiration precautions at all times Home O2 NIPPV at night CARDIOVASCULAR: Follow hemodynamics. Vital signs per facility protocol GI & NUTRITION: Continue with nutritional support. Continue stool softeners and laxatives as needed. KIDNEYS & ELECTROLYTES: Strict monitoring of intake, output and overall fluid balance. Avoid nephrotoxic medications to the extent possible. Medications to be dosed according to renal function. Monitor electrolytes and replace as needed ENDOCRINE: Maintain blood glucose between 100-180 at all times. Hypoglycemia protocol in place INFECTIOUS DISEASE: Trend temperature, WBC and procalcitonin level Follow cultures, deescalate antibiotics as soon as possible. Panculture if new onset fever ONCOLOGY/HEMATOLOGY/COAGULATION: Monitor for s/s of bleeding Monitor hemoglobin, coagulation studies as needed SKIN: Pressure ulcer prevention per facility protocol Specialty mattress ORTHO/REHAB: Continue PT/OT Prophylaxis: Continue GI and DVT prophylaxis Code Status: Full Resuscitation Disposition: TBD Other: Total patient care time exceeds 35 minutes excluding all procedures. BELEN BRAY CNP Jul 25, 2024 15:33
[2024-07-25] MEDS: ropiNIRole HCL 1 MG TABLET PO SCH (16:48)
[2024-07-26] VITALS (14 sets, daily range): BP systolic 116–147; BP diastolic 59–73; PULSE 80–115; RESP 16–21; TEMP 97.6–98.1; O2SAT 92–95
[2024-07-26 06:13] LABS: BASOPHILS # (AUTO) 0.04 K/uL (0.00-0.20); BASOPHILS % (AUTO) 0.6 % (0.0-5.0); EOSINOPHILS # (AUTO) 0.24 K/uL (0.00-0.70); EOSINOPHILS % (AUTO) 3.4 % (0.0-8.0); HEMATOCRIT 37.8 % (42-54); LYMPHOCYTES # (AUTO) 1.4 K/uL (1.0-4.8); LYMPHOCYTES % (AUTO) 19.4 % (21.0-51.0); MEAN CORPUSCULAR HEMOGLOBIN 26.4 pg (27.0-33.0); MEAN CORPUSCULAR HGB CONC 30.4 g/dL (32.0-36.0); MEAN CORPUSCULAR VOLUME 86.9 fL (79-99); MONOCYTES # (AUTO) 0.5 K/uL (0.1-1.0); MONOCYTES % (AUTO) 6.8 % (3.0-13.0); NEUTROPHILS # (AUTO) 4.9 K/uL (1.8-7.7); NEUTROPHILS % (AUTO) 68.4 % (40.0-77.0); PLATELET COUNT (AUTO) 295 K/uL (130-400); RED BLOOD CELL COUNT(AUTO) 4.35 MIL/uL (4.50-6.20); RED CELL DISTRIBUTION WIDTH 16.7 % (11.0-15.5); WHITE BLOOD COUNT (AUTO) 7.1 K/uL (4.8-10.8)
[2024-07-26 06:24] LABS: CREATININE 1.4 mg/dL (0.5-1.3); POTASSIUM 3.6 mmol/L (3.5-5.1)
--- NOTE | 2024-07-26 09:59 | PN ---
[facility] PROGRESS NOTE Date of Service: Jul 26, 2024 Time of Service: 09:56 SUBJECTIVE: [ Patient seen and examined in room [address] Brian Edwards Admitting date 07/20/2024 Mr. Garcia is an 79-year-old male with a history of hypertension, CAD, obstructive sleep apnea, COPD, O2 dependent usually on 3 L O2, chronic knee and back pain, AAA, and chronic bilateral lower extremity venous ulcers, chronic lower extremity cellulitis who presented to [facility] ED via EMS for evaluation of shortness of breath. According to EMS [facility] The patient reported cough, congestion, and some mild difficulty breathing. Chest x-ray: Mild bilateral pulmonary infiltrates are seen may be related to mild pulmonary vascular congestion with possible superimposed pneumonitis. ABGs : PH 7.308, pCO2 60, PO2 72.5, bicarbonate 29.5, O2 sats 93. ED provider request patient be admitted to the hospital with a diagnosis of pneumonia, status dermatitis to bilateral lower extremities, and COPD exacerbation. 07/21 patient was seen by nurse practitioner and physician during rounding in room 302 lying in bed. Patient just underwent 2D echo and at this moment he is on 6 L nasal cannula. RT was called to place patient on a BiPAP due to most recent ABG gases abnormal results. We are pending further evaluation/anne mmendations of strip roller, ID and wound. Patient continues to be on levofloxacin methylprednisolone IV ipratropium and albuterol. We will continue to monitor patient in the meantime. A.m. labs. 07/22 patient was seen by nurse practitioner and physician during rounding in room 302. Patient is pending most recent ABG gases. Patient is refusing BiPAP and at this moment he is on 5 L nasal cannula. Per RN patient was on BiPAP yesterday all day but unfortunately in the evening he already declined BiPAP. 2D echo showed 55 to 60% EF. Venous Doppler and chest CT is pending. Per ID patient is on Zyvox and levofloxacin. Patient also is on Lasix 40 mg Q 8 hours. Methylprednisolone will discontinue patient was placed on prednisolone POA. Pulmonology and ID is following the patient. Patient stated he feels much better compared to the previous day. We will continue to monitor patient in the meantime. A.m. labs. PT working with the patient] 07/23 patient has been evaluated in room 302, he continues with3 L oxygen supplementation with nasal cannula, saturating at 95%. I reviewed imaging CT chest showed tiny bilateral pleural effusion mild pulmonary infiltrates bilaterally. Apparently patient is refusing BiPAP. Garage Door Installer indicated that he will probably benefit to trilogy. At this point, patient will continue with IV antibiotics respiratory culture came back Gram-negative rods. Patient also has MRSA to the nares. Patient continues with prednisone 40 mg p.o. daily and Levaquin IV. 07/24 patient was evaluated in the room. He continues with oxygen supplementation at 3 L. Patient is back at baseline. Patient did mention that he still feels very weak unable to ambulate. He would like to go to a half-way facility to continue with rehabilitation. We will be consulting case management and physical therapist to ju. 07/25 Today on bedside evaluation patient was found awake alert and oriented x 3. Latest vitals are stable, satting 92% on2 L nasal cannula. Today's labs are stable. Respiratory cultures growing ESBL Klebsiella pneumoniae and Proteus mirabilis. Id continues IV Merrem and linezolid. Case management coordinating for placement. 07/26 patient was evaluated in 302, patient is lying in bed with head of the bed elevated, on O2 at 2 L via nasal cannula. Patient continues with IV antibiotic with Merrem and Zyvox, patient is ESBL positive with Klebsiella pneumoniae and Proteus mirabilis on sputum. Patient is currently asleep but able to wake up on verbal and tactile stimuli. He is excited to transferred to [facility] but we are awaiting for acceptance. Med rec signed. REVIEW OF SYSTEMS 12-point ROS reviewed with patient. All pertinent positives mentioned above. Otherwise negative, noncontributory, or non-pertinent. PHYSICAL EXAM GENERAL APPEARANCE: The patient is awake, alert, and oriented, in no acute cardiopulmonary distress. NEUROLOGICAL: Cranial nerves II-XII grossly intact. Motor is 5/5 in bilateral upper and lower extremities proximal to distal. No sensory deficits. HEENT: Face is symmetric. Pupils are equal and reactive. Extraocular movements are intact. NECK: Supple. No JVD. No thyromegaly. No submental, submandibular, pre- /postauricular, occipital or supraclavicular lymphadenopathy. CHEST: Normal chest expansion. No Telemetry. LUNGS: Tachypneic, wheezing, and lungs sounded wet. Patient had a very productive cough, and was spitting phlegm into a napkin while the I assessed him. CARDIOVASCULAR: Regular. S1 and S2 normal. No appreciable rubs, murmurs or gallops. ABDOMEN: Soft, nontender, and nondistended. There is no rebound, voluntary guarding, or rigidity. : Deferred. No Ramirez. EXTREMITIES: Non-edematous and not cyanotic. No clubbing. Good capillary refill. SKIN: No skin breakdown. Vital Signs (last 8hr) Date Time Temp Pulse Resp B/P (MAP) Pulse Ox O2 Delivery O2 Flow Rate FiO2 07/26/24 08:00 97.9 80 20 147/61 92 Nasal Cannula 3.0 07/26/24 07:07 83 21 N/Cannula Low lpm 2.0 07/26/24 07:05 83 21 07/26/24 04:04 98.1 91 18 136/73 92 Nasal Cannula 3.0 LABS: Laboratory: Test 07/26/24 05:29 07/26/24 05:15 Range/Units White Blood Count 7.1 4.8-10.8 K/uL Red Blood Count 4.35 L 4.50-6.20 MIL/uL Hemoglobin 11.5 L 14.0-18.0 g/dL Hematocrit 37.8 L 42-54 % Mean Corpuscular Volume 86.9 79-99 fL Mean Corpuscular Hemoglobin 26.4 L 27.0-33.0 pg Mean Corpuscular Hemoglobin Concent 30.4 L 32.0-36.0 g/dL Red Cell Distribution Width 16.7 H 11.0-15.5 % Platelet Count 295 130-400 K/uL Mean Platelet Volume 9.1 7.5-10.5 fL Immature Granulocyte % (Auto) 1.4 H 0-1 % Neutrophils (%) (Auto) 68.4 40.0-77.0 % Lymphocytes (%) (Auto) 19.4 L 21.0-51.0 % Monocytes (%) (Auto) 6.8 3.0-13.0 % Eosinophils (%) (Auto) 3.4 0.0-8.0 % Basophils (%) (Auto) 0.6 0.0-5.0 % Neutrophils # (Auto) 4.9 1.8-7.7 K/uL Lymphocytes # (Auto) 1.4 1.0-4.8 K/uL Monocytes # (Auto) 0.5 0.1-1.0 K/uL Eosinophils # (Auto) 0.24 0.00-0.70 K/uL Basophils # (Auto) 0.04 0.00-0.20 K/uL Absolute Immature Granulocyte (auto 0.10 0-1 K/uL Nucleated Red Blood Cells 0.0 0.0-0.19 % Sodium Level 139 136-145 mmol/L Potassium Level 3.6 3.5-5.1 mmol/L Chloride Level 99 L 101-111 mmol/L Carbon Dioxide Level 34 H 21-32 mmol/L Blood Urea Nitrogen 34 H 7-18 mg/dL Creatinine 1.4 H 0.5-1.3 mg/dL Glomerular Filtration Rate Calc 51 >90 mL/min Random Glucose 161 H 70-105 mg/dL Total Calcium 8.0 L 8.5-10.1 mg/dL Whole Blood Glucose 167 H 70-110 MG/DL Current Medications Medications (Trade) Dose Ordered Sig/Viola Route PRN Reason Start Time Stop Time Status Last Admin Dose Admin Acetaminophen (TYLenol 325MG TAB) 650 mg Q6H PRN PO FEVER/MILD PAIN LEVEL 1-3 07/20/24 23:30 08/19/24 23:29 Acetaminophen (TYLenol 650MG SUPPOSITORY) 650 mg Q6H PRN RC FEVER / MILD PAIN 1-3 IF NPO 07/20/24 23:30 08/19/24 23:29 Acetylcysteine (MUComyst 20% 4ML) 400 mg [id number] IH 07/20/24 22:10 07/26/24 09:31 DC 07/26/24 07:01 400 MG Albuterol Sulfate (Proventil 0.083% 2.5mg/3ml) 2.5 mg [id number] IH 07/20/24 22:00 08/19/24 21:59 07/26/24 07:01 2.5 MG Atorvastatin Calcium (LIPItor 40MG) 40 mg HS PO 07/21/24 21:00 08/20/24 20:59 07/25/24 20:01 40 MG Docusate Sodium (COLace 100MG CAP) 100 mg BID PRN PO c 07/20/24 23:30 08/19/24 23:29 07/22/24 08:27 100 MG Enoxaparin Sodium (Lovenox) 40 mg DAILY SQ 07/21/24 09:00 08/20/24 08:59 07/26/24 09:47 40 MG Furosemide (LASix 40MG VIAL) 40 mg Q8H IV 07/21/24 16:00 07/23/24 09:05 DC 07/22/24 23:36 40 MG Guaifenesin (RobiTUSSin SUGAR-FREE 100 MG/ 5 ML UDCUP) 400 mg Q4H PRN PO COUGH/COLD SYMPTOMS 07/21/24 05:30 08/20/24 05:29 07/22/24 21:12 400 MG Home Med (Home Medication) Prazosin HCl 1 MG HS PO 07/21/24 21:00 08/20/24 20:59 Home Med (Home Medication) Ropinirole HCl 4 MG QIDP PRN PO LP 07/21/24 09:30 08/20/24 09:29 Home Med (Home Medication) Sertraline HCl 25 MG DAILY PO 07/22/24 09:00 07/21/24 09:25 DC Hydralazine HCl (APRESOLine 20MG INJ) 10 mg Q2H PRN IV SBP GREATER THAN 160 07/20/24 23:30 08/19/24 23:29 Insulin Human Regular (humuLIN R 100 UNIT/ML 3ML) INSULIN SLIDING SCAL... ACHS SQ 07/21/24 07:30 08/20/24 07:29 07/24/24 20:13 4 UNIT Ipratropium [place] (AtrovENT UD) 0.5 mg [id number] IH 07/20/24 22:00 08/19/24 21:59 07/26/24 07:01 0.5 MG Lactulose (Constulose 20gm/ 30ml Udcup) 20 gm Q6H PRN PO CONSTIPATION 07/20/24 23:30 08/19/24 23:29 Levofloxacin/ Dextrose 100 ml @ 100 mls/hr Q24H IV 07/21/24 21:00 07/24/24 09:17 DC 07/23/24 19:43 100 MLS/HR Levofloxacin/ Dextrose 150 ml @ 100 mls/hr Q48H IV 07/22/24 21:00 07/21/24 13:56 DC Linezolid 300 ml @ 150 mls/hr Q12H IV 07/21/24 15:00 07/31/24 14:59 07/26/24 03:04 150 MLS/HR Magnesium Sulfate 50 ml @ 0 mls/hr PROTOCOL IV 07/21/24 05:00 08/20/24 04:59 07/23/24 06:22 25 MLS/HR Meropenem (Merrem) 1 gm Q12H IVPB 07/24/24 09:30 08/03/24 09:29 07/26/24 09:47 1 GM Meropenem 1 gm/ Sodium Chloride 100 ml @ 33.333 mls/ hr Q8H IVPB 07/24/24 09:30 07/24/24 09:20 DC Methylprednisolone Sodium Succinate (Solu-medROL 40MG) 60 mg Q6H IVP 07/21/24 15:00 07/21/24 15:49 DC Methylprednisolone Sodium Succinate (Solu-medROL 125MG) 60 mg Q6H IVP 07/21/24 03:00 07/21/24 13:27 DC 07/21/24 09:20 60 MG Metolazone (zarOXOlyn) 2.5 mg BID PO 07/21/24 21:00 08/20/24 20:59 07/26/24 09:46 2.5 MG Metolazone (zarOXOlyn) 5 mg Q2D PO 07/21/24 09:00 07/21/24 09:25 DC Mirtazapine (REMeron 15 MG TAB) 30 mg HS PO 07/21/24 21:00 08/20/24 20:59 07/25/24 20:01 30 MG Miscellaneous Medication (Simvastatin (Zocor)) 40 mg HS PO 07/21/24 21:00 07/21/24 08:54 DC Montelukast Sodium (SinguLAIR) 10 mg DAILY PO 07/21/24 09:00 08/20/24 08:59 07/26/24 09:46 10 MG Multivitamins Therapeutic (Multivitamin Tablet) 1 tab DAILY PO 07/22/24 09:00 08/21/24 08:59 07/26/24 09:46 1 TAB Nystatin (NystOP 15 GM POWDER) apply to abdominal fold TID TP 07/21/24 21:00 08/20/24 20:59 07/25/24 20:08 1 APPL Ondansetron HCl (zoFRAN 4MG TABLET) 4 mg Q6H PRN PO nausea 07/21/24 13:30 07/21/24 13:27 DC Ondansetron HCl (zoFRAN 4MG INJ) 4 mg Q6H PRN IVP NAUSEA/VOMITING 07/20/24 23:30 08/19/24 23:29 Prednisone (deltaSONE/ oraSONE 20MG TAB) 40 mg DAILY PO 07/22/24 09:00 07/25/24 08:59 DC 07/24/24 09:01 40 MG Ropinirole HCl (REquip) 1 mg QID PO 07/25/24 17:00 08/24/24 16:59 07/26/24 09:46 1 MG Sodium Chloride 1,000 ml @ 75 mls/hr [id number] IV 07/22/24 10:30 07/23/24 10:29 DC 07/22/24 10:28 75 MLS/HR Spironolactone (Aldactone 25mg) 25 mg DAILY PO 07/21/24 09:00 07/21/24 09:25 DC Tamsulosin HCl (FloMAX) 0.4 mg HS PO 07/21/24 21:00 08/20/24 20:59 07/25/24 20:01 0.4 MG Temazepam (restORIL 15 MG CAP) 15 mg HS PRN PO INSOMNIA/SLEEP 07/20/24 23:30 08/19/24 23:29 07/22/24 21:11 15 MG Tramadol HCl (UltRAM) 50 mg Q6H PRN PO PAIN LEVEL 7 TO 10 07/21/24 01:30 07/26/24 09:10 DC 07/22/24 21:11 50 MG Venlafaxine HCl (EffEXOR 50 mg TAB) 150 mg DAILY PO 07/21/24 09:00 08/20/24 08:59 07/26/24 09:46 150 MG Wound Care/ Dressing Products (Venelex Ointment) 1 APPL TID TP 07/23/24 14:00 08/20/24 20:59 07/25/24 20:08 1 GM Wound Care/ Dressing Products (Venelex Ointment) 1 gm TID TP 07/21/24 21:00 07/23/24 12:57 DC 07/23/24 09:35 1 GM DIAGNOSTICS / RADIOLOGY: [ ] ASSESSMENT: Acute hypoxemic hypercapnic respiratory failure, requiring BiPAP COPD exacerbation Positive ESBL Proteus mirabilis and Klebsiella pneumoniae on sputum, POA Acute complicated cystitis, POA Chronic bilateral lower extremity venous ulcers Acute on chronic lower extremity cellulitis Anemia of chronic disease Hypomagnesemia Hyperglycemia Obstructive sleep apnea Morbid obesity, BMI 41.1 Chronic problem list: HLP, BPH, anemia, chronic back and knee pain, PTSD, morbid obesity Deconditioned Functional decline PLAN: -continue admission in the medical-surgical unit -continue telemetry monitoring -Monitor respiratory status closely, continue with 3 L nasal cannula -continue BiPAP, -titrate O2. -monitor ABGs and chest x-ray -continue Albuterol and Atrovent nebulizer treatments scheduled q.4 hours. -RT to provide IS hourly as tolerated and education on use. -Robitussin DM as needed cough. -continue montelukast 10 mg p.o. daily. -continue Mucomyst 400 mg IH q.4 hours. -corticosteroids have been discontinued -following strip roller's recommendations -continue IV Merrem and linezolid -Dr. Pardo for antimicrobial stewardship. -continue Glucometer checks AC & HS needed with insulin regular sliding scale coverage as needed. -Blood pressure checks every 4 hours and as needed. -continue to work with physical therapy -monitor a.m. labs -PRN Treatment - Add when necessary meds for nausea, vomiting, pain, constipation, insomnia. -DVT/GI prophylaxis- Continue Lovenox at current doses. -Full CODE STATUS -Case management coordinating for SNF placement This document was generated in part using voice recognition software, occasional wrong word or sound alike substitutions may have occurred due to the inherent limitations of voice recognition software. Read the chart carefully and recognize using context, where the substitutions have occurred. Although every effort was made to edit the content, moisture conditioner operator and typing errors may occur Case was seen and examined with Dr. Cruz, above plan was formulated ATTESTATION BY PHYSICIAN I have seen and examined the patient. I reviewed the documentation, medical decision making, and treatment plan as noted by the mid-level provider above. I agree with the findings and plan of care. Meg Cruz MD, [facility] Jul 26, 2024 09:59
--- NOTE | 2024-07-26 14:09 | PN ---
INFECTIOUS DISEASE PROGRESS NOTE Date of Service: Jul 26, 2024 SUBJECTIVE: This is an 79-year-old male patient with past medical history of COPD with oxygen dependent and chronic bilateral lower extremities venous ulcers who was admitted to the hospital with chief complaint of shortness of breaths. Patient was seen and examined at bedside in room 302. Patient is awake, alert and oriented x3. Lower extremity swelling and erythema continues to improve. Lower extremities wrapped with Kerlix due to chronic ulcers. Patient continues on meropenem and linezolid IV. Remains on Oxygen support via nasal cannula at 3 liters/minute. Patient has been referred to [facility] and pending insurance approval. We will continue to monitor patient's care. PHYSICAL EXAM EYES: Anicteric. Pupils equal and reactive. HENT: No oral thrush seen, moist Oral mucosa. NECK: Supple, no JVD or thyromegaly. LUNGS: Good air entry. no rhonchi. Crackles to bilateral upper lobes. Oxygen support. CARDIOVASCULAR: S1, S2 regular. No murmur heard. ABDOMEN: Soft, non tender, bowel sounds present, no organomegaly. CENTRAL NERVOUS SYSTEM: Awake, alert, oriented x 3. SKIN: No rashes, no swelling. Bilateral lower extremity erythema chronic ulcers. LYMPHATICS: No peripheral lymphadenopathy. MUSCULOSKELETAL: No joint swelling, erythema or tenderness. EXTREMITIES: No cyanosis or clubbing. Bilateral lower extremity edema. BACK: No deformity, no pressure ulcer. GENITOURINARY: No dysuria or hematuria. Vital Sign (Last 12 Hours) 07/26/24 07/26/24 07/26/24 07/26/24 04:04 07:05 07:07 08:00 Temp 98.1 97.9 Pulse 91 83 83 80 Resp 18 21 21 20 B/P (MAP) 136/73 147/61 Pulse Ox 92 92 O2 Delivery Nasal Cannula N/Cannula Low lpm Nasal Cannula O2 Flow Rate 3.0 2.0 3.0 07/26/24 07/26/24 10:08 12:00 Temp 97.5 Pulse 86 83 Resp 21 19 B/P (MAP) 144/68 Pulse Ox 94 O2 Delivery Nasal Cannula O2 Flow Rate 3.0 Intake & Output (last 24hrs) 07/25/24 07/25/24 07/26/24 14:59 22:59 06:59 Intake Total 1900.0 ml 540.0 ml Output Total 1900 ml 1200 ml Balance 0 ml -660.0 ml LABS: Laboratory: Test 07/26/24 11:47 07/26/24 05:29 Range/Units Whole Blood Glucose 164 H 70-110 MG/DL White Blood Count 7.1 4.8-10.8 K/uL Red Blood Count 4.35 L 4.50-6.20 MIL/uL Hemoglobin 11.5 L 14.0-18.0 g/dL Hematocrit 37.8 L 42-54 % Mean Corpuscular Volume 86.9 79-99 fL Mean Corpuscular Hemoglobin 26.4 L 27.0-33.0 pg Mean Corpuscular Hemoglobin Concent 30.4 L 32.0-36.0 g/dL Red Cell Distribution Width 16.7 H 11.0-15.5 % Platelet Count 295 130-400 K/uL Mean Platelet Volume 9.1 7.5-10.5 fL Immature Granulocyte % (Auto) 1.4 H 0-1 % Neutrophils (%) (Auto) 68.4 40.0-77.0 % Lymphocytes (%) (Auto) 19.4 L 21.0-51.0 % Monocytes (%) (Auto) 6.8 3.0-13.0 % Eosinophils (%) (Auto) 3.4 0.0-8.0 % Basophils (%) (Auto) 0.6 0.0-5.0 % Neutrophils # (Auto) 4.9 1.8-7.7 K/uL Lymphocytes # (Auto) 1.4 1.0-4.8 K/uL Monocytes # (Auto) 0.5 0.1-1.0 K/uL Eosinophils # (Auto) 0.24 0.00-0.70 K/uL Basophils # (Auto) 0.04 0.00-0.20 K/uL Absolute Immature Granulocyte (auto 0.10 0-1 K/uL Nucleated Red Blood Cells 0.0 0.0-0.19 % Sodium Level 139 136-145 mmol/L Potassium Level 3.6 3.5-5.1 mmol/L Chloride Level 99 L 101-111 mmol/L Carbon Dioxide Level 34 H 21-32 mmol/L Blood Urea Nitrogen 34 H 7-18 mg/dL Creatinine 1.4 H 0.5-1.3 mg/dL Glomerular Filtration Rate Calc 51 >90 mL/min Random Glucose 161 H 70-105 mg/dL Total Calcium 8.0 L 8.5-10.1 mg/dL ASSESSMENT: Hypoxic respiratory failure. Gram-negative Pneumonia. Bilateral lower extremity cellulitis. Bilateral lower extremities chronic leg ulcers. Medical noncompliance. COPD with home O2 dependent. Morbid obesity. PLAN: Continue on meropenem. Continue linezolid. Keep lower extremities Elevated. Continue bronchodilators. Continue oxygen support. Continue diuretics as currently ordered. Pending case management evaluation for SNF referral. This case was reviewed and discussed with my supervising physician and the above assessment and plan was formulated and agreed upon. ATTESTATION BY PHYSICIAN I have seen and examined the patient. I reviewed the documentation, medical decision making, and treatment plan as noted by the mid-level provider above. I agree with the findings and plan of care. VERONICA KILPATRICK MD, MIRTA L MOTOR COACH TOUR OPERATOR Jul 26, 2024 14:09
--- NOTE | 2024-07-26 20:10 | NUR ---
NURSING ROUNDS PATIENT ALERT AND ORIENTED X 4, AWAKE WITH FAMILY AT BEDSIDE WATCHING LAPTOP. ADMINISTERED SCHEDULED MEDICATION, PATIENT DENIES PAIN. PATIENT REFUSED WOUND CARE TO BE DONE. PER FRAN NURSE DURING DAY PATIENT HAD REFUSED WOUND CARE DUE TO STATING LIKES TO HAVE WOUND CARE AT NIGHT INSTEAD. PATIENT ASKED IF IS READY FOR WOUND CARE AND PATIENT STATED "I ALREADY HAD IT EARLIER". INFORMED PATIENT THAT NURSE FRAN STATED WOUND CARE WAS NOT DONE BY HER DURING DAY AND IS TO HAVE WOUND CARE DONE TONIGHT TO BILATERAL LOWER EXTREMITIES, PATIENT CONTINUED TO REFUSE. PATIENT EDUCATED ON IMPORTANCE OF WOUND CARE DONE EVERY DAY ORDERED BY PROVIDER DUE TO ALREADY HAVING CELLULITIS TO LOWER EXTREMITIES. PATIENT STATED UNDERSTANDING OF EDUCATION BUT CONTINUED TO REFUSE AND REFUSAL FORM SIGNED, WITH IN ROOM TO WITNESS REFUSAL. PATIENT PROVIDED WITH ICE WATER, NURSE OFFERED BLANKET. CALL LIGHT WITHIN REACH, BED ALARM ARMED.
--- NOTE | 2024-07-26 20:36 | PN ---
[facility] PROGRESS NOTE Date Patient Seen: Jul 26, 2024 Time of Visit: 20:35 Supervising Physician: Gautam Merchant Primary Care Physician: [[facility]] Outpatient Specialists: [ ] Inpatient Consults: [[facility]] PROBLEM LIST: Acute hypoxemic hypercapnic respiratory failure, requiring BiPAP MDRO multifocal pneumonia- POA- positive for MRSA on nasal swab, sputum cultures with Klebsiella, proteus, and ESBL Acute on chronic diastolic heart failure, POA- LVEF 55-60% Acute renal failure from ATN COPD exacerbation, POA Acute complicated cystitis, POA Chronic bilateral lower extremity venous ulcers Acute on chronic lower extremity cellulitis Anemia of chronic disease Hypomagnesemia Hyperglycemia Hyperlipidemia Benign prostate hyperplasia Post traumatic stress disorder Chronic back pain Obstructive sleep apnea Morbid obesity, BMI 41.1 Hx of DVT, R-popliteal vein 12/31/2023 Plan: Prednisone Order venous doppler negative Restrict fluid intake, daily weights, monitor I&O Echo with diastolic dysfunction Adjust antibiotics for MDRO. ID is following. Order sputum culture, follow blood culture result Other management per primary INTERVAL HISTORY: Patient is awake alert and oriented x3 no acute event overnight. Patient had been hypercapnic but can not tolerated BiPAP. We will repeat blood gas. Lab this morning with creatinine is up to 1.6 from 1.2. Potassium is 4.0 bicarb is 30. BUN is 26 patient likely is hypovolemic. We will give him IV fluids for today and repeat lab in the morning. Check MRSA swab. Continue antibiotic. Continue with prednisone. 07/23 patient is awake alert and oriented x3 no acute event overnight. Vital signs blood pressure 124/94 heart rate is 76 respiratory rate is 20. His T-max is 97.9 he remains on 5 L nasal cannula with saturation oxygen of 94%. Remar kable lab findings with creatinine up to 1.7 from 1.6, patient had voided 5.7 L with balance-3.5 L. we will hold Lasix given worsening renal function and contraction alkalosis with bicarbonate 39. We will complete NS today. Otherwise history repeat blood gas is steady pH 7.36, pCO2 57 bicarb is 32 PO2 is 59. Patient has been refusing BiPAP. continue antibiotic and nebulizer. He may be benefited from a trilogy. 07/24 patient is awake alert oriented X 3. no acute event overnight. Vital signs blood pressure 136/70 heart rate is 76 T-max 98.1. He is on 1 L of oxygen support 93%. Obtain chest x-ray this morning. We had discontinued the IV fluid yesterday and he put out 3.7 L of urine output with balance-2.2 L. culture of the sputum is growing Klebsiella, Proteus mirabilis, and positive MRSA. Continue with Zyvox for discontinue Levaquin. Start patient on meropenem. We will have case management to arrange for snf for antibiotic. 07/25 patient is awake alert oriented x3, lying down in his bed watching a movie on his laptop, not in acute distress. He is feeling much better. He remains on oxygen at 3 L nasal cannula. His creatinine is down to 1.3 from 1.4. Continue with current regimen for MDRO pneumonia with meropenem and zyvox for MRSA. From pulmonary standpoint, he can go to SNF. Follow up with pulmonology in 2 weeks post SNF. 07/26 patient is awake alert and oriented x3 not in acute distress. He remains on baseline oxygen 3 L nasal cannula sats 95%. Otherwise continue antibiotic for MDRO pneumonia. Continue nebulizer as needed. From pulmonary/critical care standpoint patient is stable to transfer to snf. To follow up with pulmonary services in two weeks. REVIEW OF SYSTEMS: 12 point ROS reviewed with patient. Pertinent positives mentioned above. Otherwise negative. PHYSICAL EXAM: GENERAL: alert, weak, awake oriented x 3 HEENT: EOMI, Sclera non icteric, moist mucosa NECK: Supple, no JVD, trachea midline LUNGS: Clear breath sounds bilaterally. No wheezes HEART: Regular rate and rhythm. Normal S1 and S2, without murmurs ABD: Abdomen soft, nontender. Bowel sounds present EXT: No clubbing cyanosis or edema NEURO: Alert and oriented to person, follows commands Vital Signs (last 8hr) Date Time Temp Pulse Resp B/P (MAP) Pulse Ox O2 Delivery O2 Flow Rate FiO2 07/26/24 20:00 97.5 115 20 118/68 95 Room Air 07/26/24 18:56 83 21 N/Cannula Low lpm 2.0 07/26/24 18:54 80 21 07/26/24 16:00 98.1 91 19 135/70 92 Nasal Cannula 3.0 07/26/24 14:51 80 21 LABS: Hematology Labs: Test 07/26/24 05:29 Range/Units White Blood Count 7.1 4.8-10.8 K/uL Red Blood Count 4.35 L 4.50-6.20 MIL/uL Hemoglobin 11.5 L 14.0-18.0 g/dL Hematocrit 37.8 L 42-54 % Mean Corpuscular Volume 86.9 79-99 fL Mean Corpuscular Hemoglobin 26.4 L 27.0-33.0 pg Mean Corpuscular Hemoglobin Concent 30.4 L 32.0-36.0 g/dL Red Cell Distribution Width 16.7 H 11.0-15.5 % Platelet Count 295 130-400 K/uL Mean Platelet Volume 9.1 7.5-10.5 fL Immature Granulocyte % (Auto) 1.4 H 0-1 % Neutrophils (%) (Auto) 68.4 40.0-77.0 % Lymphocytes (%) (Auto) 19.4 L 21.0-51.0 % Monocytes (%) (Auto) 6.8 3.0-13.0 % Eosinophils (%) (Auto) 3.4 0.0-8.0 % Basophils (%) (Auto) 0.6 0.0-5.0 % Neutrophils # (Auto) 4.9 1.8-7.7 K/uL Lymphocytes # (Auto) 1.4 1.0-4.8 K/uL Monocytes # (Auto) 0.5 0.1-1.0 K/uL Eosinophils # (Auto) 0.24 0.00-0.70 K/uL Basophils # (Auto) 0.04 0.00-0.20 K/uL Absolute Immature Granulocyte (auto 0.10 0-1 K/uL Nucleated Red Blood Cells 0.0 0.0-0.19 % Chemistry Labs: Test 07/26/24 19:41 07/26/24 05:29 Range/Units Whole Blood Glucose 134 H 70-110 MG/DL Sodium Level 139 136-145 mmol/L Potassium Level 3.6 3.5-5.1 mmol/L Chloride Level 99 L 101-111 mmol/L Carbon Dioxide Level 34 H 21-32 mmol/L Blood Urea Nitrogen 34 H 7-18 mg/dL Creatinine 1.4 H 0.5-1.3 mg/dL Glomerular Filtration Rate Calc 51 >90 mL/min Random Glucose 161 H 70-105 mg/dL Total Calcium 8.0 L 8.5-10.1 mg/dL DIAGNOSTICS / RADIOLOGY RESULTS: [ ] PLAN NEURO: Minimize central acting medications as possible. Maintain fall precautions, adequate lighting during the day PULMONARY: Supplemental 02 as needed. Maintain aspiration precautions at all times Home O2 NIPPV at night CARDIOVASCULAR: Follow hemodynamics. Vital signs per facility protocol GI & NUTRITION: Continue with nutritional support. Continue stool softeners and laxatives as needed. KIDNEYS & ELECTROLYTES: Strict monitoring of intake, output and overall fluid balance. Avoid nephrotoxic medications to the extent possible. Medications to be dosed according to renal function. Monitor electrolytes and replace as needed ENDOCRINE: Maintain blood glucose between 100-180 at all times. Hypoglycemia protocol in place INFECTIOUS DISEASE: Trend temperature, WBC and procalcitonin level Follow cultures, deescalate antibiotics as soon as possible. Panculture if new onset fever ONCOLOGY/HEMATOLOGY/COAGULATION: Monitor for s/s of bleeding Monitor hemoglobin, coagulation studies as needed SKIN: Pressure ulcer prevention per facility protocol Specialty mattress ORTHO/REHAB: Continue PT/OT Prophylaxis: Continue GI and DVT prophylaxis Code Status: Full Resuscitation Disposition: TBD Other: Total patient care time exceeds 35 minutes excluding all procedures. BELEN BRAY [facility] Jul 26, 2024 20:35
--- NOTE | 2024-07-26 22:45 | NUR ---
NURSING ROUNDS PATIENT CONTINUES AWAKE AT THIS TIME, IS WATCHING SHOW ON LAPTOP, DENIES PAIN AT THIS TIME. ALL BELONGINGS WITHIN REACH, BED ALARM ARMED.
[2024-07-27] VITALS (8 sets, daily range): BP systolic 106–121; BP diastolic 42–60; PULSE 79–105; RESP 19–20; TEMP 97.8–98.4; O2SAT 94–97
[2024-07-27] MEDS: IpraTROPium 0.5 MG/2.5 ML INH IH SCH (00:11)
--- NOTE | 2024-07-27 00:58 | NUR ---
NURSING ROUNDS PATIENT APPLIED CALL LIGHT, REQUESTED SNACK, SANDWICH AND JELLO GIVEN. DENIES PAIN AT THIS TIME, CONTINUES WATCHING SHOW ON LAPTOP.
[2024-07-27 03:54] LABS: HEMATOCRIT 40.1 % (42-54); MEAN CORPUSCULAR HEMOGLOBIN 26.5 pg (27.0-33.0); MEAN CORPUSCULAR HGB CONC 30.4 g/dL (32.0-36.0); MEAN CORPUSCULAR VOLUME 87.2 fL (79-99); RED BLOOD CELL COUNT(AUTO) 4.6 MIL/uL (4.50-6.20); RED CELL DISTRIBUTION WIDTH 16.6 % (11.0-15.5); WHITE BLOOD COUNT (AUTO) 9.1 K/uL (4.8-10.8)
[2024-07-27 04:24] LABS: CREATININE 1.4 mg/dL (0.5-1.3); POTASSIUM 3.9 mmol/L (3.5-5.1)
--- NOTE | 2024-07-27 12:39 | PN ---
INFECTIOUS DISEASE PROGRESS NOTE Date of Service: Jul 27, 2024 SUBJECTIVE: This is an 79-year-old male patient with past medical history of COPD with oxygen dependent and chronic bilateral lower extremities venous ulcers who was admitted to the hospital with chief complaint of shortness of breaths. Patient was seen and examined at bedside in room 302. Patient is awake, alert and oriented x 3. Patient is afebrile, temperature is 98.4 and a WBC of 9.1. Patient continues on meropenem and linezolid IV. Remains on Oxygen support via nasal cannula at 3 liters/minute. Patient is pending insurance approval to [facility]. From Infectious Disease standpoint patient can be discharged on cephalexin and doxycycline p.o x 10 days. Prescription was written and given to nurse. PHYSICAL EXAM EYES: Anicteric. Pupils equal and reactive. HENT: No oral thrush seen, moist Oral mucosa. NECK: Supple, no JVD or thyromegaly. LUNGS: Good air entry. no rhonchi. Crackles to bilateral upper lobes. Oxygen support. CARDIOVASCULAR: S1, S2 regular. No murmur heard. ABDOMEN: Soft, non tender, bowel sounds present, no organomegaly. CENTRAL NERVOUS SYSTEM: Awake, alert, oriented x 3. SKIN: No rashes, no swelling. Bilateral lower extremity erythema chronic ulcers. LYMPHATICS: No peripheral lymphadenopathy. MUSCULOSKELETAL: No joint swelling, erythema or tenderness. EXTREMITIES: No cyanosis or clubbing. Bilateral lower extremity edema. BACK: No deformity, no pressure ulcer. GENITOURINARY: No dysuria or hematuria. Vital Sign (Last 12 Hours) 07/27/24 07/27/24 07/27/24 07/27/24 03:42 07:00 07:52 08:54 Temp 97.9 98.4 Pulse 80 80 83 84 Resp 20 20 19 20 B/P (MAP) 121/55 106/42 Pulse Ox 90 97 O2 Delivery Nasal Cannula Nasal Cannula N/Cannula Low lpm O2 Flow Rate 3.0 3.0 2.0 FiO2 28 07/27/24 07/27/24 11:19 11:30 Temp 98.4 Pulse 105 85 Resp 19 20 B/P (MAP) 120/60 Pulse Ox 94 O2 Delivery Nasal Cannula O2 Flow Rate 3.0 Intake & Output (last 24hrs) 07/26/24 07/26/24 07/27/24 15:00 23:00 07:00 Output Total 1000 ml 1100 ml Balance -1000 ml -1100 ml LABS: Laboratory: Test 07/27/24 10:50 07/27/24 03:20 07/26/24 05:29 Range/Units Whole Blood Glucose 115 H 70-110 MG/DL White Blood Count 9.1 # 4.8-10.8 K/uL Red Blood Count 4.60 4.50-6.20 MIL/uL Hemoglobin 12.2 L 14.0-18.0 g/dL Hematocrit 40.1 L 42-54 % Mean Corpuscular Volume 87.2 79-99 fL Mean Corpuscular Hemoglobin 26.5 L 27.0-33.0 pg Mean Corpuscular Hemoglobin Concent 30.4 L 32.0-36.0 g/dL Red Cell Distribution Width 16.6 H 11.0-15.5 % Platelet Count 310 130-400 K/uL Mean Platelet Volume 8.8 7.5-10.5 fL Nucleated Red Blood Cells 0.0 0.0-0.19 % Sodium Level 139 136-145 mmol/L Potassium Level 3.9 3.5-5.1 mmol/L Chloride Level 99 L 101-111 mmol/L Carbon Dioxide Level 36 H 21-32 mmol/L Blood Urea Nitrogen 37 H 7-18 mg/dL Creatinine 1.4 H 0.5-1.3 mg/dL Glomerular Filtration Rate Calc 51 >90 mL/min Random Glucose 174 H 70-105 mg/dL Total Calcium 8.1 L 8.5-10.1 mg/dL Immature Granulocyte % (Auto) 1.4 H 0-1 % Neutrophils (%) (Auto) 68.4 40.0-77.0 % Lymphocytes (%) (Auto) 19.4 L 21.0-51.0 % Monocytes (%) (Auto) 6.8 3.0-13.0 % Eosinophils (%) (Auto) 3.4 0.0-8.0 % Basophils (%) (Auto) 0.6 0.0-5.0 % Neutrophils # (Auto) 4.9 1.8-7.7 K/uL Lymphocytes # (Auto) 1.4 1.0-4.8 K/uL Monocytes # (Auto) 0.5 0.1-1.0 K/uL Eosinophils # (Auto) 0.24 0.00-0.70 K/uL Basophils # (Auto) 0.04 0.00-0.20 K/uL Absolute Immature Granulocyte (auto 0.10 0-1 K/uL ASSESSMENT: Hypoxic respiratory failure. Gram-negative Pneumonia. Bilateral lower extremity cellulitis. Bilateral lower extremities chronic leg ulcers. Medical noncompliance. COPD with home O2 dependent. Morbid obesity. PLAN: Continue on meropenem. Continue linezolid. Keep legs Elevated. Continue bronchodilators. Continue oxygen support. Continue diuretics as currently ordered. Patient has been referred to [facility] and pending insurance approval. From Infectious Disease standpoint patient can be discharged on cephalexin and doxycycline p.o. X 10 days. Prescription was written and given to nurse. This case was reviewed and discussed with my supervising physician and the above assessment and plan was formulated and agreed upon. ATTESTATION BY PHYSICIAN I have seen and examined the patient. I reviewed the documentation, medical decision making, and treatment plan as noted by the mid-level provider above. I agree with the findings and plan of care. VERONICA KILPATRICK MD, [facility] Jul 27, 2024 12:39
--- NOTE | 2024-07-27 15:21 | NUR ---
Discharge Planning: Pt. accepted at [facility]. Pending transfer.
--- NOTE | 2024-07-28 16:54 | DS ---
Discharge Summary Hospital Course Summary: Late dictation: 07/27/2024- DOS Assessment/Plan: ASSESSMENT: Acute hypoxemic hypercapnic respiratory failure, requiring BiPAP COPD exacerbation Positive ESBL Proteus mirabilis and Klebsiella pneumoniae on sputum, POA Acute complicated cystitis, POA Chronic bilateral lower extremity venous ulcers Acute on chronic lower extremity cellulitis Anemia of chronic disease Hypomagnesemia Hyperglycemia Obstructive sleep apnea Morbid obesity, BMI 41.1 Chronic problem list: HLP, BPH, anemia, chronic back and knee pain, PTSD, morbid obesity Deconditioned Functional decline PLAN: -continue admission in the medical-surgical unit -continue telemetry monitoring -Monitor respiratory status closely, continue with 3 L nasal cannula -continue BiPAP, -titrate O2. -monitor ABGs and chest x-ray -continue Albuterol and Atrovent nebulizer treatments scheduled q.4 hours. -RT to provide IS hourly as tolerated and education on use. -Robitussin DM as needed cough. -continue montelukast 10 mg p.o. daily. -continue Mucomyst 400 mg IH q.4 hours. -corticosteroids have been discontinued -following weigh and charge worker's recommendations -continue IV Merrem and linezolid -Dr. Pardo for antimicrobial stewardship. -continue Glucometer checks AC & HS needed with insulin regular sliding scale coverage as needed. -Blood pressure checks every 4 hours and as needed. -continue to work with physical therapy -monitor a.m. labs -PRN Treatment - Add when necessary meds for nausea, vomiting, pain, constipation, insomnia. -DVT/GI prophylaxis- Continue Lovenox at current doses. -Full CODE STATUS -Case management coordinating for SNF placement This document was generated in part using voice recognition software, occasional wrong word or sound alike substitutions may have occurred due to the inherent limitations of voice recognition software. Read the chart carefully and recognize using context, where the substitutions have occurred. Although every effort was made to edit the content, court of appeals judge and typing errors may occur Case was seen and examined with Dr. Cruz, above plan was formulated Home Medications: Reported Medications Ondansetron HCl (Ondansetron HCl) 4 Mg Tablet, 4 MG PO Q6HPRN, TAB 12/31/23 Prazosin HCl (Prazosin HCl) 1 Mg Capsule, 1 MG PO HS, CAP 12/31/23 Atorvastatin Calcium (LIPITOR) 40 Mg Tablet, 40 MG PO HS, TAB 12/31/23 Sertraline HCl (Sertraline HCl) 25 Mg Tablet, 25 MG PO DAILY, TAB 12/31/23 Ropinirole HCl (Ropinirole HCl) 4 Mg Tablet, 4 MG PO QIDP PRN for LEG PAIN, TAB 03/01/23 Multivitamin (Multivitamin) 1 Each Tablet, 1 EACH PO DAILY, TAB 11/18/22 Tamsulosin HCl (Flomax) 0.4 Mg Cap.er.24h, 0.4 MG PO HS, CAPSULE.DR 11/18/22 Potassium Chloride (Potassium Chloride) 20 Meq Tablet.er, 40 MEQ PO DAILY, TAB 11/18/22 Simvastatin (ZOCOR) 40 Mg Tablet, 40 MG PO HS, TAB 11/18/22 Discontinued Reported Medications Metolazone (Metolazone) 5 Mg Tablet, 5 MG PO Q2D, TAB 12/31/23 Spironolactone (Spironolactone) 25 Mg Tablet, 25 MG PO DAILY, TAB 11/18/22 Venlafaxine HCl (Venlafaxine HCl) 50 Mg Tablet, 150 MG PO DAILY, TAB 11/18/22 Mirtazapine (Mirtazapine) 30 Mg Tablet, 30 MG PO HS, TAB 11/18/22 MAXINE JOHNSNO AGPCNP Jul 28, 2024 16:54
== END 2024-07-27 17:30 | DRG 871 ==
LOC: EDH 17:47 → EDHIP 20:33 → 3AH 21:54
PROVIDERS: ADMIT Hospitalist; ATTEND Hospitalist
DX: A41.9 Sepsis, unspecified organism (principal); I50.33 Acute on chronic diastolic (congestive) heart failure; J15.69 Pneumonia due to other Gram-negative bacteria; J96.01 Acute respiratory failure with hypoxia; J96.02 Acute respiratory failure with hypercapnia; N17.0 Acute kidney failure with tubular necrosis; L97.819 Non-pressure chronic ulcer of other part of right lower leg with unspecified severity; J44.1 Chronic obstructive pulmonary disease with (acute) exacerbation; N30.00 Acute cystitis without hematuria; Z68.41 Body mass index [BMI] 40.0-44.9, adult; L97.829 Non-pressure chronic ulcer of other part of left lower leg with unspecified severity; J44.0 Chronic obstructive pulmonary disease with (acute) lower respiratory infection; L03.115 Cellulitis of right lower limb; L03.116 Cellulitis of left lower limb; L97.919 Non-pressure chronic ulcer of unspecified part of right lower leg with unspecified severity; L97.929 Non-pressure chronic ulcer of unspecified part of left lower leg with unspecified severity; Z68.42 Body mass index [BMI] 45.0-49.9, adult; Z16.12 Extended spectrum beta lactamase (ESBL) resistance; D63.8 Anemia in other chronic diseases classified elsewhere; E83.42 Hypomagnesemia; R73.9 Hyperglycemia, unspecified; E66.01 Morbid (severe) obesity due to excess calories; G89.29 Other chronic pain; G47.33 Obstructive sleep apnea (adult) (pediatric); N40.0 Benign prostatic hyperplasia without lower urinary tract symptoms; G25.81 Restless legs syndrome; E78.5 Hyperlipidemia, unspecified; F43.10 Post-traumatic stress disorder, unspecified; M54.9 Dorsalgia, unspecified; I25.10 Atherosclerotic heart disease of native coronary artery without angina pectoris; I11.0 Hypertensive heart disease with heart failure; I87.2 Venous insufficiency (chronic) (peripheral); B96.1 Klebsiella pneumoniae [K. pneumoniae] as the cause of diseases classified elsewhere; Z99.81 Dependence on supplemental oxygen; Z20.822 Contact with and (suspected) exposure to COVID-19; Z95.5 Presence of coronary angioplasty implant and graft; Z88.1 Allergy status to other antibiotic agents; Z86.718 Personal history of other venous thrombosis and embolism; Z83.3 Family history of diabetes mellitus; Z79.899 Other long term (current) drug therapy; Z88.0 Allergy status to penicillin; Z88.3 Allergy status to other anti-infective agents; Z88.6 Allergy status to analgesic agent; Z88.8 Allergy status to other drugs, medicaments and biological substances; Z82.49 Family history of ischemic heart disease and other diseases of the circulatory system; Z87.891 Personal history of nicotine dependence
CPT/HCPCS: 36415; 36600; 71045; 71250; 80048; 80053; 81001; 82435; 82803; 82947; 82948; 83605; 83735; 83880; 84100; 84132; 84145; 84295; 84443; 84484; 85018; 85025; 85027; 87040; 87071; 87086; 87186; 87205; 87635; 87641; 87804; 93005; 93306; 93970; 94640; 94660; 94664; 96375; 99285; A6248; A6250; G0378; J1650; J1815; J1940; J1956; J2020; J2185; J2270; J2919; J3475